=== PATIENT | female | born 1950 | race Caucasian/White ===

== ENCOUNTER 2022-07-20 13:57 | Outpatient (REF) | payer MEDICARE, MEDICAID, SELFPAY ==
--- NOTE | ~2022-07-20 | MM_ITS ---
EXAMINATION: BONE DENSITOMETRY CLINICAL INDICATION: Osteoporosis. COMPARISON: Previous BD dated 06/13/2018 and baseline BD dated 12/13/2008. TECHNIQUE: Using a [employer] DXA System (software version: 13.1) manufactured by [employer], dual-energy x-ray absorptiometry was performed of the lumbar spine and right hip. The images are of good technical quality. Summary results are attached. FINDINGS: AP SPINE L1-L2 (excluding L3 and L4): The data of L1-L4 has been changed to exclude the L3 and L4 vertebral bodies, because degenerative changes at these levels may cause overestimation of lumbar spine density. Current: BMD 0.784 g/cm2, Z-score -1.3, T-score -3.2, osteoporosis, 0.9% increase from previous, 15.6% increase from baseline (<5% change is not significant). Prior: BMD 0.777 g/cm2. Baseline: BMD 0.678 g/cm2. RIGHT FEMUR, NECK: Current: BMD 0.512 g/cm2, Z-score -1.8, T-score -3.8, osteoporosis. Prior: BMD 0.638 g/cm2. Baseline: BMD 0.625 g/cm2. RIGHT FEMUR, TOTAL: Current: BMD 0.480 g/cm2, Z-score -2.4, T-score -4.2, osteoporosis, 23.8% decrease from previous, 21.4% decrease from baseline (<5% change is not significant). Prior: BMD 0.630 g/cm2. Baseline: BMD 0.611 g/cm2. IDENTIFIED RISK FACTORS: Early menopause, height loss, bilateral oophorectomy, history of fracture (adult), hyperthyroid, hysterectomy, osteoporosis, renal, secondary osteoporosis. HISTORY OF FRACTURE: Femur, thoracic spine, other. MEDICATIONS: Vitamin D, Prolia. MM/XR DEXA axial skeleton IMPRESSION: 1. DIAGNOSIS: Severe osteoporosis based on the lowest T-score value of -4.2 in the total femur and history of fracture of spine and femur applying World Health Organization criteria. 2. 10-YEAR FRACTURE RISK PREDICTION, FRAX: According to the guidelines, FRAX calculation should only be performed on patients in the osteopenia bone density category. Therefore, FRAX was not performed on this patient. 3. Treatment Recommendations: NOF guidelines recommend consideration for treatment in postmenopausal women and men age 50 and older presenting with the following: -A hip or vertebral (clinical or morphometric) fracture. -T-score less than or equal to -2.5 at the femoral neck or spine after appropriate evaluation to exclude secondary causes. -Low bone mass at the hip or spine and a 10-year fracture probability by FRAX of greater than or equal to 3% for hip fracture or greater than or equal to 20% for major osteoporotic fracture based on the [place] adapted WHO algorithm. 4. Other Recommendations: All treatment decisions require clinical judgment and consideration of individual patient factors, including patient preferences, comorbidities, previous drug use, risk factors not captured in the FRAX model (e.g. frailty, falls, vitamin D deficiency, increased bone turnover, interval significant decline in bone density) and possible under or overestimation of fracture risk by FRAX. Additional medical evaluation for secondary cause of low bone mineral density may be appropriate. FUTURE SCAN RECOMMENDATION: People with diagnosed cases of osteoporosis or at high risk for fracture should have regular bone mineral density tests. For patients eligible for Medicare, routine testing is allowed once every 2 years. The testing frequency can be increased to one year for patients who have rapidly progressing disease, those who are receiving or discontinuing medical therapy to restore bone mass, or have additional risk factors.
== END 2022-07-20 13:58 | disposition home or self-care (01) ==
LOC: HO.MAMMO 13:57
PROVIDERS: PCP Emergency Medicine; Visit Provider Emergency Medicine
DX: Z13.820 Encounter for screening for osteoporosis (principal); Z78.0 Asymptomatic menopausal state; M81.0 Age-related osteoporosis without current pathological fracture
CPT/HCPCS: 77080

== ENCOUNTER 2024-08-29 15:29 | Inpatient (IN) | payer OTHER, SELFPAY ==
[2024-08-29] VITALS (8 sets, daily range): BP systolic 136–161; BP diastolic 62–83; PULSE 90–119; RESP 16–30; TEMP 36.1–36.9; O2SAT 91–98; BMI 17.8; BMI 18.6
--- NOTE | ~2024-08-29 | XR_ITS ---
EXAMINATION: XR CHEST CLINICAL INFORMATION: SOB, vomiting COMPARISON: None available. TECHNIQUE: 2 views of the chest were obtained. FINDINGS: The lungs are hyperinflated but clear acute pneumonic process. There is mild bilateral apical pleural thickening without pleural effusion. Heart size and pulmonary vasculature is normal. There is moderate smooth S-shaped scoliosis of dorsal spine. There is cement augmentation of upper to mid dorsal approximately 6 vertebra. No aggressive lytic or sclerotic process seen. XR/XR chest 2V IMPRESSION: Unremarkable examination. Mild left apical pleural thickening without effusion. Electronically signed by: Peter Muñoz MD 08/29/2024 04:26 PM EDT
--- NOTE | ~2024-08-29 | XR_ITS ---
CLINICAL HISTORY: shortness, hypoxia 1 view chest x-ray Comparison: CR/SR - XR CHEST 2V - 08/29/24 16:09 EDT Findings: The lungs are hyperaerated. There is bilateral interstitial prominence. There is left lower lobe pleural-parenchymal opacity. Mild biapical scarring. No pneumothorax. Borderline heart size with a densely calcified aorta. Thoracolumbar S shaped scoliosis. Upper thoracic kyphoplasty. IMPRESSION: 1. Small left pleural effusion with adjacent compressive atelectasis and/or consolidation. 2. Bilateral interstitial prominence secondary to pneumonitis or edema. This document has been electronically signed by: Ritika Gonzalez DO on 09/01/2024 19:22:11
--- NOTE | ~2024-08-29 | CT_ITS ---
CLINICAL HISTORY: hypoxia CT chest without contrast Comparison: None Findings: Moderate apical predominant centrilobular and paraseptal emphysematous changes. Bilateral posterior-dependent and bibasilar atelectasis. Small bilateral pleural effusions. Heart size normal. No pericardial effusion. No thoracic aortic aneurysm. Heavy aortic atherosclerotic changes. No acute fracture. Remote thoracic compression fracture deformities noted. IMPRESSION: 1. Bilateral lower lobe posterior dependent and basilar atelectasis. Findings may represent aspiration given the distribution and bilaterality. 2. Small bilateral pleural effusions. This document has been electronically signed by: Ranjit Orozco MD on 09/04/2024 19:52:49
--- NOTE | ~2024-08-29 | CT_ITS ---
CLINICAL HISTORY: Diarrhea, weight loss CT abdomen and pelvis without contrast Comparison: None Findings: Lung bases clear. No acute bony abnormality. Degenerative change spine and bilateral hips. Hepatomegaly without significant focal abnormality. Pancreas, Spleen and adrenal glands unremarkable. Gallbladder within normal limits. No bilateral renal stone or hydronephrosis. No focal renal abnormality or ureteral dilation. Renovascular calcifications noted. 4.8 cm infrarenal abdominal aortic aneurysm. This is not well assessed on this noncontrasted study. No free fluid or adenopathy in the pelvis. No diverticulitis. Appendix not identified. Uterus normal size. No adnexal abnormality. Impression: No acute processes This document has been electronically signed by: Rigoberto Melendez MD on 08/29/2024 19:12:39
--- NOTE | 2024-08-29 15:42 | ED.GENADULT ---
HPI - General Adult General Chief complaint: Nausea/Vomiting/Diarrhea Stated complaint: Dehydration, sent by PCP Time Seen by Provider: 08/29/24 16:40 Source: patient Mode of arrival: ambulatory Limitations: no limitations History of Present Illness ED Provider: HPI narrative: 74-year-old woman, heavy smoker drinks a pt of vodka a day, presented with diarrhea, no chest pain no shortness of breath no fevers or chills. States last drink was yesterday, does not feel like she is withdrawing, there is no dyspnea, no chest pain, no abdominal pain no back pain no pain in her upper extremities. She went to see her PCP and was sent to the ER due to diarrhea for the past 4 days 6-7 times at night. Related Data Allergies Allergy/AdvReac Type Severity Reaction Status Date / Time No Known Allergies Allergy Verified 08/29/24 15:44 [No Known Allergies*] Review of Systems Constitutional: Constitutional: Reports as per [facility] Social History Social History Advance Directives: No Advance Directives Information Provided: No Physical Exam ED Vital Signs: Vital Signs - 24 hr 08/29/24 15:40 08/29/24 16:46 08/29/24 16:49 Temperature 97.0 F Pulse Rate 90 109 H Respiratory Rate 22 H 16 Blood Pressure 139/67 146/78 H Pulse Oximetry 91 L 92 Oxygen Delivery Method Room Air Nasal Cannula Oxygen Flow Rate 2 BMI result Body Mass Index 17.8 Const Other: Gen: ?Appears of stated age HEENT: No scleral icterus, dry oral mucosa Neck: Supple, no LAD CV: RRR, radial pulses +2 bilateral upper extremities Resp: ?No wheezing rales rhonchi no stridor moving air well Abd: ?Bowel sounds are present, no tenderness no rebound no rigidity MSK: FROM, strength 5/5 all extremities, minimal ankle edema Skin: Warm, dry, intact, Neuro: ?Alert and oriented x3, moving upper and lower extremities symmetrically, no obvious facial asymmetry noted Course Course Course Narrative: 08/29/24 1542 LEYDI Mckoy This is a Rapid Medical Examination (RME) performed by Marychuy Stockton PA-C in triage. Full HPI, ROS, assessment and treatment plan per primary provider in the Main ED. Hx: 74 yo F here for eval of 6-7 episodes of diarrhea x4 days along w/ b/l LE swelling and inc SOB which began today. here from dr. steen office. reports drinking 1-2 pints/ night. Plan: labs, ekg, cxr Medical Decision Making Medical Decision Making [facility] Narrative: 16:53 patient has not ECG with ST-depression in V1 to V3, right bundle-branch block, no priors to compare, her 1st troponin at 644. I discussed case with Dr. Kaur from Cardiology, we will start her on heparin, provide aspirin, she has absolutely no chest pain or any other chest pain equivalents. I will give her Valium to prevent any withdrawals she is not having any withdrawal symptoms. Otherwise physical exam is reassuring. Patient has been updated. Differential Diagnosis Differential Diagnoses: The differential diagnosis associated with the presentation includes ACS, aortic dissection, PE, dehydration, alcohol withdrawal, electrolyte derangements Admission/Observation Consideration of admission/observation: Escalation of care including admission/observation considered Consult Healthcare Provider Management of the patient was discussed with: Program Proposals Coordinator (Cardiology) Lab Data [facility] Lab Attestation statement: I reviewed the patient's lab results. 08/29/24 15:58 08/29/24 15:58 Labs: Lab Results 08/29/24 Range/Units 15:58 WBC 7.5 (4.8-10.8) X10*3/uL RBC 3.75 L (4.20-5.50) X10*6/uL Hgb 12.8 (12.0-16.0) g/dl Hct 38.0 (37.0-47.0) % MCV 101.3 H (80.0-98.0) fL MCH 34.1 H (27.0-33.0) pg MCHC 33.7 (31.0-35.0) g/dl RDW 14.2 (11.0-16.0) % Plt Count 226 (160-400) X10*3/uL MPV 8.7 L (9.4-12.3) fL Immature Gran % (Auto) 0.5 H (0.0-0.4) % Neut % (Auto) 62.7 (45-73) % Lymph % (Auto) 13.0 L (20-40) % [place] % (Auto) 21.4 H (2-11) % Eos % (Auto) 1.2 (0-4) % Baso % (Auto) 1.2 (0-2) % Lymph # (Auto) 1.0 L (1.2-4.9) X10*3/uL [place] # (Auto) 1.6 H (0.1-1.2) X10*3/uL Eos # (Auto) 0.1 (0.0-0.4) X10*3/uL Baso # (Auto) 0.1 (0.0-0.2) X10*3/uL Abs Immat Gran (auto) 0.04 H (0.00-0.03) X10*3/uL Absolute Neuts (auto) 4.7 (2.0-8.3) x10*3/uL Absolute Nucleated RBC 0.000 (0.0-0.012) X10*3/uL Nucleated RBC % (auto) 0.0 (0.0-0.2) /100WBC Smear Tech's Comments VERIFIED Sodium 141 (135-145) mmol/L Potassium 3.2 L (3.3-5.1) mmol/L Chloride 108 (96-108) mmol/L Carbon Dioxide 25 (22-29) mmol/L Anion Gap 11 L (12-20) BUN 21 H (9-16) mg/dL Creatinine 0.66 (0.5-1.4) mg/dL Estim Creat Clear Calc 48.9 Estimated GFR > 60 Random Glucose 105 (60-115) mg/dL Calcium 9.4 (8.4-10.2) mg/dL Magnesium 1.5 L (1.6-2.6) mg/dL Total Bilirubin 0.8 (0.0-1.0) mg/dL AST 36 H (5-31) U/L ALT 23 (0-31) U/L Alkaline Phosphatase 64 (39-117) U/L Troponin I High Sens 644.1 H* (<3.5-17.0) ng/L B-Natriuretic Peptide 433 H (<100) pg/mL Total Protein 6.2 L (6.5-8.0) g/dL Albumin 3.6 (3.5-5.0) g/dL Lipase 12 (8-78) U/L Ethyl Alcohol < 10 mg/dL Influenza Type A (PCR) NEGATIVE (Negative) Influenza Type B (PCR) NEGATIVE (Negative) RSV RNA Qual (PCR) NEGATIVE (Negative) SARS-CoV-2 RNA (RT-PCR) NEGATIVE (Negative) Independent Interpretation I performed an independent interpretation of an: EKG (103 beats per minute, right bundle-branch block, ST depression V1 to V3, no priors to compare) Radiology Impression Radiologist Impression: Unremarkable examination. Mild left apical pleural thickening without effusion. Critical Care Time Critical Care Time Total Critical Care Time: 45 Attestation: Time is exclusive of separately billable procedures. Time includes: direct patient care, patient reassessment, coordination of patient care, interpretation of data (laboratory data, pulse oximetry, arterial blood gases and chest xrays), review of patient's medical records, medical consultation and documentation of patient care. Procedures excluded from critical care time: central intravenous line placement and electrocardiography. Discharge Plan Discharge Clinical Impression: Non-ST elevation AR (NSTEMI), Alcohol use disorder Patient Disposition: Admitted As Inpatient Print Language: Bulgarian
--- NOTE | 2024-08-29 15:44 | ECG_ITS ---
Test Reason : TACHYCARDIC Blood Pressure : */* mmHG Vent. Rate : 103 BPM Atrial Rate : 103 BPM P-R Int : 118 ms QRS Dur : 132 ms QT Int : 378 ms P-R-T Axes : 82 96 -4 degrees QTcB Int : 495 ms Sinus tachycardia with Premature atrial complexes Right bundle branch block Nonspecific ST and T wave abnormality Abnormal ECG When compared with ECG of 05-Mar-2015 11:33, Premature atrial complexes are now Present ST now depressed in Inferior leads ST now depressed in Anterior leads Referred By: Dot Stockton Electronically Signed By: ELENITA HALL
[2024-08-29 16:08] LABS: Basophils Absolute Auto 0.1 X10*3/uL (0.0-0.2); Basophils Percent Auto 1.2 % (0-2); Eosinophils Absolute Auto 0.1 X10*3/uL (0.0-0.4); Eosinophils Percent Auto 1.2 % (0-4); Hemoglobin 12.8 g/dl (12.0-16.0); Imm Gran Abs Auto 0.04 X10*3/uL (0.00-0.03); Imm Gran Pct Auto 0.5 % (0.0-0.4); MANUAL DIFF FLAG SCAN; Mean Corpuscular HGB Conc 33.7 g/dl (31.0-35.0); Mean Corpuscular Hemoglobin 34.1 pg (27.0-33.0); Mean Corpuscular Volume 101.3 fL (80.0-98.0); Mean Platelet Volume 8.7 fL (9.4-12.3); Monocytes Absolute Auto 1.6 X10*3/uL (0.1-1.2); Monocytes Percent Auto 21.4 % (2-11); Neutrophils Absolute Auto 4.7 x10*3/uL (2.0-8.3); Neutrophils Percent Auto 62.7 % (45-73); Platelet Count 226 X10*3/uL (160-400); Red Blood Count 3.75 X10*6/uL (4.20-5.50); Red Cell Distribution Width 14.2 % (11.0-16.0); SCAN SMEAR FLAG 1; White Blood Count 7.5 X10*3/uL (4.8-10.8)
[2024-08-29 16:24] LABS: Alanine Aminotransferase 23 U/L (0-31); Albumin Level 3.6 g/dL (3.5-5.0); Alkaline Phosphatase 64 U/L (39-117); Anion Gap 11 (12-20); Aspartate Amino Transferase 36 U/L (5-31); Bilirubin Total 0.8 mg/dL (0.0-1.0); Blood Urea Nitrogen 21 mg/dL (9-16); Calcium 9.4 mg/dL (8.4-10.2); Carbon Dioxide 25 mmol/L (22-29); Chloride 108 mmol/L (96-108); Creatinine Clr Calc Pharmacy 48.9; Estimated Glomerular Filt Rate > 60; Glucose Random 105 mg/dL (60-115); Lipase 12 U/L (8-78); Magnesium 1.5 mg/dL (1.6-2.6); Potassium 3.2 mmol/L (3.3-5.1); Sodium 141 mmol/L (135-145); Total Protein 6.2 g/dL (6.5-8.0)
[2024-08-29 16:26] LABS: Ethanol < 10 mg/dL
[2024-08-29 16:30] LABS: B Type Natriuretic Peptide 433 pg/mL (<100)
[2024-08-29 16:40] LABS: SLIDE REVIEW VERIFIED
[2024-08-29 16:41] LABS: Troponin-I High Sensitivity 644.1 ng/L (<3.5-17.0)
[2024-08-29 16:44] LABS: Influenza A PCR NEGATIVE (Negative); Influenza B PCR NEGATIVE (Negative); Resp Syncy Virus RNA Qual PCR NEGATIVE (Negative); SARS COV2 PCR INHOUSE NEGATIVE (Negative)
[2024-08-29] MEDS: Aspirin 81 MG TAB.CHEW 324 MG PO (16:58)
[2024-08-29] MEDS: diazePAM 10 MG/2 ML CARTRIDGE 2.5 MG IVPUSH (17:04)
[2024-08-29] MEDS: 0.9 % Sodium Chloride 1,000 ML 999 ML IV (17:13)
[2024-08-29] MEDS: Metoprolol Tartrate 5 MG/5 ML VIAL 2.5 MG IVPUSH (17:16)
--- NOTE | 2024-08-29 17:27 | P.HPHOSP_ITS ---
History of Present Illness Date of Service: 08/29/24 Chief Complaint: diarrhea, weight loss 74 year female with smoker, heavy alcohol use drinks about 1 pint of liquor a day, HTN, hypothyroidism she has lost 10 Ib since december and and has been having diarrhea for 5 to 7 time a day for the last 4 days, no associated abdominal pain and no hematochezia. She recently travelled to [place], no other household members with similar symptoms, lives with [place] people, no recent Abx use. Unpone eval in the ED noted to have inferior TWI on ECG, she denies chest pain or shortness of breath. Troponin I level is 644, hemodynamically stable. Cardilogy has asvised medical treatement with heparin, ASA, and is also getting metoprolol. She is not experiencing alcohol withdrawal as of yet, althogh she states has has had withdrawal in the past and last drank yesterday. Other notable things include K 3.2 Mag 1.5, BNP 43 Review of Systems 2 Review of Systems: Gen: no fever Resp: no sob, no cough CV: no chest, no LOUISE, no leg edema GI: No n/v, no abd pain, + diarrhea Neuro: No confusion PMFSH Social History Alcohol intake: current Alcohol intake frequency: 3 or more drinks per day Alcohol type: hard liquor Smoked in Last 30 Days: No Use of substances other than those prescribed or required for medical reasons: No Advance Directives: No Advance Directives Information Provided: No Meds Allergies Allergy/AdvReac Type Severity Reaction Status Date / Time No Known Allergies Allergy Verified 08/29/24 15:44 [No Known Allergies*] Active Medications: Current Medications Heparin Sodium (Porcine) (Heparin Sodium,Porcine 5,000 Unit/Ml Vial) 1,700 unit 40 unit/kg (1700 unit) IVPUSH PROTOCOL BOLUS PRN; Protocol PRN Reason: 40 unit/kg - Heparin Protocol Heparin Sodium (Porcine) (Heparin Sodium,Porcine 5,000 Unit/Ml Vial) 3,400 unit 80 unit/kg (3400 unit) IVPUSH PROTOCOL BOLUS PRN; Protocol PRN Reason: 80 unit/kg - Heparin Protocol Sodium Chloride (Ns) 1,000 mls @ 999 mls/hr IV .Q1H1M JG Stop: 08/29/24 18:00 Last Admin: 08/29/24 17:13 Dose: 999 mls/hr Heparin Sodium/Sodium Chloride (Heparin Sodium,Porcine/1/2ns) 25,000 unit in 250 mls @ 0 mls/hr IVCONT .Q0M JG; Protocol Home Medications ?Medication ?Instructions ?Recorded ?Confirmed ?Last Taken ?Type albuterol sulfate 90 mcg/actuation 2 puff inhalation Q4-6H PRN 08/29/24 08/29/24 Unknown History aerosol inhaler Shortness Of Breath Or Wheezing amlodipine 10 mg tablet 10 mg PO DAILY 08/29/24 Unknown History ergocalciferol (vitamin D2) 1,250 1,250 mcg PO Q2W 08/29/24 Unknown History mcg (50,000 unit) capsule levothyroxine 88 mcg tablet 88 mcg PO DAILY@0600 08/29/24 Unknown History Physical Exam 2 Vital Signs and Narrative: Vital Signs: Last Vital Signs Temp 97.0 F 08/29/24 15:40 Pulse 119 H 08/29/24 17:06 Resp 24 H 08/29/24 17:06 BP 161/83 H 08/29/24 17:06 Pulse Ox 98 08/29/24 17:06 O2 Del Method Nasal Cannula 08/29/24 17:06 O2 Flow Rate 2 08/29/24 17:06 BMI result Body Mass Index 17.8 Const: Other: General: AO X 3, no acute distress Resp: CTA bilateral CVS: S1,S2,RRR GI: +BS, NT, no distention Skin: No rash Neuro: motor grossly intact, no tremors Psych: appropriate affect Results Labs 08/29/24 17:30 08/29/24 15:58 Labs: Laboratory Results - last 24 hr 08/29/24 15:58 MCV 101.3 H MCH 34.1 H MCHC 33.7 RDW 14.2 Plt Count 226 MPV 8.7 L Immature Gran % (Auto) 0.5 H Neut % (Auto) 62.7 Lymph % (Auto) 13.0 L [place] % (Auto) 21.4 H Eos % (Auto) 1.2 Baso % (Auto) 1.2 Lymph # (Auto) 1.0 L [place] # (Auto) 1.6 H Eos # (Auto) 0.1 Baso # (Auto) 0.1 Abs Immat Gran (auto) 0.04 H Absolute Neuts (auto) 4.7 Absolute Nucleated RBC 0.000 Nucleated RBC % (auto) 0.0 Smear Tech's Comments VERIFIED Anion Gap 11 L Estim Creat Clear Calc 48.9 Estimated GFR > 60 Random Glucose 105 Calcium 9.4 Magnesium 1.5 L Total Bilirubin 0.8 AST 36 H ALT 23 Alkaline Phosphatase 64 Troponin I High Sens 644.1 H* B-Natriuretic Peptide 433 H Total Protein 6.2 L Albumin 3.6 Lipase 12 Ethyl Alcohol < 10 Influenza Type A (PCR) NEGATIVE Influenza Type B (PCR) NEGATIVE RSV RNA Qual (PCR) NEGATIVE SARS-CoV-2 RNA (RT-PCR) NEGATIVE Imaging Radiologist's Impressions: Impressions Chest X-Ray 08/29/24 16:00 IMPRESSION: Unremarkable examination. Mild left apical pleural thickening without effusion. Electronically signed by: Peter Muñoz MD 08/29/2024 04:26 PM EDT RP Assessment and Plan (1) Alcohol use disorder: Status: Acute (2) Non-ST elevation HI (NSTEMI): Status: Acute Plan 74/F with HTN, hypothyroidism, chronic alcohol dependency, here with diarrhea weight loss and found to have NSTEMI NSTEMI, inf wall changes on ECG Trend troponin medical management with ASA, stattin, BB, IV heparin for 48 to 72 hours echocardiogram to assess wall motion cardiology consultation to guide further management and risk stratification No sings of heart failure despite elevated BNP alcohol use disorder, high risk for withdrawal Diarrhea, unintentional weight loss check gi panel, cdif lactose controlled diet unsure of last colonoscopy non contrast CT of Abd/pelv will need gi eval, and likely colonoscopy in the future Hypokalemia, hypomagnesemia d/t chronic alcohol use replace HTN continue Norvasc Metoprolol-new Tobacco use disorder NRT Hypothyroidism continue leveothyroxine and check TFTs DVT prophylaxis: heparin Full code at least 2 midnights admit for NSTEMI on IV heparin Quality Stroke Does the patient have a stroke diagnosis?: No VTE Prior VTE?: No VTE Risk Level:: Medical - moderate - high VTE Device Contraindication: Treatment Not Indicated VTE Drug Contraindication: N/A - Med Ordered
[2024-08-29 17:39] LABS: Hematocrit 36.9 % (37.0-47.0); Hemoglobin 12.2 g/dl (12.0-16.0); Mean Corpuscular HGB Conc 33.1 g/dl (31.0-35.0); Mean Corpuscular Hemoglobin 34.2 pg (27.0-33.0); Mean Corpuscular Volume 103.4 fL (80.0-98.0); Platelet Count 199 X10*3/uL (160-400); Red Blood Count 3.57 X10*6/uL (4.20-5.50); Red Cell Distribution Width 14.2 % (11.0-16.0); White Blood Count 6.7 X10*3/uL (4.8-10.8)
[2024-08-29 17:49] LABS: Prothrombin Time 10.9 SEC (10.9-12.4)
[2024-08-29 17:51] LABS: PTT Heparin Drip 31.9 SEC (53-77.9)
[2024-08-29] MEDS: Heparin Sodium,Porcine 5,000 UNIT/ML VIAL 2600 UNIT IVPUSH (18:02)
[2024-08-29] MEDS: Heparin Sodium,Porcine/1/2NS 25,000 UNIT/250 ML IV.SOLN 5.12 UNIT IVCONT (18:03)
[2024-08-29 18:05] LABS: Estimated Average Glucose 100 mg/dL; Hemoglobin A1c % 5.1 % (<6.0)
[2024-08-29 18:06] LABS: Troponin-I High Sensitivity 575.8 ng/L (<3.5-17.0)
[2024-08-29] MEDS: PHENobarbitaL sodium 130 MG/ML IM ONCE 136 MG IM (18:09)
[2024-08-29] MEDS: Potassium Chloride ER 20 MEQ TAB.ER.PRT 40 MEQ PO (18:20)
[2024-08-29 18:27] LABS: Free T4 (Free Thyroxine) 1.37 ng/dL (0.71-1.85); Thyroid Stimulating Hormone 0.03 uIU/mL (0.32-4.0)
[2024-08-29] MEDS: Magnesium Sulfate/H2O 2 GM/50 ML PIGGYBACK IV (18:27)
--- NOTE | 2024-08-29 18:53 | PHA.MEDREC ---
Addendum entered by Charlee Manriquez RPh 08/29/24 18:56: reviewed by rod Original Note: Pharmacy Consult ? Medication Reconciliation Pharmacy has completed the medication reconciliation. Spoke with pt and she confirmed her medications. She confirmed she takes Vitamin D2 once every 2 week on and stated she is due for it tomorrow (08/29).
--- NOTE | 2024-08-29 19:12 | MHC.EDTECH ---
Patient belongings list done ,Patient wanted to keep her Pants on ,Call [facility] within Pt reach .
[2024-08-29] MEDS: Metoprolol Tartrate 25 MG TABLET PO (21:55)
[2024-08-29] MEDS: PHENobarbitaL sodium 130 MG/ML VIAL IM Q3Hx2 102 MG IM (21:55)
[2024-08-29] MEDS: Atorvastatin Calcium 40 MG TABLET PO (21:55)
[2024-08-29 22:01] LABS: Appearance Urine Clear; Color Urine Yellow; Glucose Urine UA Negative (Negative); Leukocyte Esterase Urine Negative (Negative); Nitrite Urine Negative (Negative); Specific Gravity - Urine 1.025 (1.005-1.025); UMIC TRIGGER UACC YES; Urine Blood Negative (Negative); Urine Ketones Negative (Negative); Urine Protein 100 (2+) mg/dL (Neg-Trace)
[2024-08-29] MEDS: 0.9 % Sodium Chloride Flush 3 ML SYRINGE IVFLUSH (22:01)
[2024-08-29 22:22] LABS: Bacteria Urine 1+ (None Seen); Hyaline Casts Urine 0-2 /LPF (0-2); RBC Urine 0-2 /HPF (0-2); WBC Urine 0-5 /HPF (0-5)
[2024-08-30] VITALS (7 sets, daily range): BP systolic 101–135; BP diastolic 53–63; PULSE 67–89; RESP 16–20; TEMP 36.4–37.2; O2SAT 94–98; BMI 18.6
[2024-08-30 00:40] LABS: PTT Heparin Drip 50.3 SEC (53-77.9)
[2024-08-30] MEDS: Heparin Sodium,Porcine 5,000 UNIT/ML VIAL 1700 UNIT IVPUSH ×2 (01:02→14:17)
[2024-08-30] MEDS: PHENobarbitaL sodium 130 MG/ML VIAL IM Q3Hx2 102 MG IM (01:02)
--- NOTE | 2024-08-30 07:00 | CA_ITS ---
Transthoracic Echocardiogram Patient (Last, First, Middle): Loly Spann A Gender: Female Date of : 1950 Age: 74 Procedure Date: 08/30/2024 Procedure Type: Transthoracic Echocardiogram Location: [facility] Height: 154.94 cm Weight: 44.45 kg BSA: 1.40 m2 Heart Rate: bpm BP: 133 / 59 mmHg Active Directory Specialist: REY Bella MD: Josh Willard MD Symptoms: NSTEMI Study Quality: Fair ECG Rhythm: Sinus Conclusions: - The left ventricular systolic function is hyperdynamic. The visually estimated ejection fraction is >70%. - Moderately increased right ventricular cavity size. - There is mild to moderate tricuspid valve regurgitation. - Mild pulmonary hypertension is present. Findings Left Ventricle Normal left ventricular cavity size. There is normal left ventricular wall thickness. The left ventricular systolic function is hyperdynamic. The visually estimated ejection fraction is >70%. There is no evidence of regional wall motion abnormalities. Evidence suggests grade II (moderate) diastolic dysfunction. Right Ventricle Moderately increased right ventricular cavity size. There is mildly decreased right ventricular systolic function. Atria Mild biatrial enlargement. Aortic Valve There is a normal trileaflet aortic valve. There is mild calcification of the aortic valve. There is no aortic valve stenosis. There is no aortic valve regurgitation. Mitral Valve There is mild mitral annular calcification. There is trace mitral valve regurgitation. There is no mitral valve stenosis. Pulmonic Valve The pulmonic valve is likely normal. Tricuspid Valve There is mild to moderate tricuspid valve regurgitation. Mild pulmonary hypertension is present. Great Vessels The asc aorta is normal in size. Venous The inferior vena cava is mildly dilated and collapses less than 50% with inspiration. Pericardium/Pleural There is no evidence of pericardial effusion. Prior Study Comparison No prior study available for comparison. Measurements 2D Linear Measurements IVSd: 0.94 0.6-0.9/0.6-1.0 cm LVIDd: 3.62 3.9-5.3/4.2-5.9 cm LVIDd Index: 2.59 2.4-3.2/2.2-3.1 cm/m2 LVIDs: 1.92 2.0-3.6 cm LVPWd: 0.93 0.7-1.1 cm Ao Root: 3.20 2.1-3.5 cm LA Diam: 3.60 2.7-3.8/3.0-4.0 cm LAIDs Index: 2.57 1.5-2.3 cm/m2 LV Mass: 122.66 67-162/88-224 g LV Mass Index: 87.61 43-95/49-115 g/m2 LVOT Diam: 2.00 3.0+(-)1.3 cm 2D Systolic Function EF 4C: 79.40 >55% EF 2C: 65.50 >55% EF BiP: 73.70 >55% Mitral Valve MV Pk E: 1.11 MV PK A: 0.80 MV Decel Time: 202.00 E/A: 1.40 E'Lateral: 5.87 E'Medial: 4.31 E/E' Med: 25.80 E/E' Lat: 18.90 PHT: 59.00 MVA PHT: 3.73 Decel [place]: 5.52 Aortic Valve AoV Pk Umang: 1.14 AoV Mn Umang: 0.81 AoV VTI: 0.26 AoV Pk Grad: 5.00 Aov Mn Grad: 3.00 FRANCISCO JAVIER Cont.VTI: 3.14 LVOT LVOT Pk Umang: 1.14 LVOT Mn Umang: 0.82 LVOT VTI: 0.26 LVOT Pk Grad: 5.00 LVOT Mn Grad: 3.00 LVOT Diam: 2.00 LVOT Area: 3.14 Diastolic Function MV Pk E: 1.11 MV Pk A: 0.80 E/A: 1.40 E'Medial: 4.31 E/E' Med: 25.80 E' Laterial: 5.87 E/E' Lat: 18.90 Right Ventricle TAPSE (mm): 20.00 TVS' Umang: 8.00 Tricuspid Valve TR Pk Umang: 2.95 TR Pk Grad: 35.00 RA Press: 15.00 RVSP: 50.00 Great Vessels Aorta Ao Root-2D: 3.20 2.0-3.7 cm Ao Asc: 3.60 2.1-3.4 cm Pulmonary Valve PV Pk Umang: 0.72 Peak PV Grad: 2.00 Updated in Other Vendor System with Status of Final Paddy Kaur MD electronically signed on 08/31/2024 10:09:19 AM with status of Final
[2024-08-30 07:15] LABS: Hematocrit 34.3 % (37.0-47.0); Hemoglobin 11.2 g/dl (12.0-16.0); Mean Corpuscular HGB Conc 32.7 g/dl (31.0-35.0); Mean Corpuscular Hemoglobin 34.1 pg (27.0-33.0); Mean Corpuscular Volume 104.6 fL (80.0-98.0); Platelet Count 171 X10*3/uL (160-400); Red Blood Count 3.28 X10*6/uL (4.20-5.50); Red Cell Distribution Width 14.5 % (11.0-16.0); White Blood Count 6.5 X10*3/uL (4.8-10.8)
--- NOTE | 2024-08-30 07:15 | ECG_ITS ---
Test Reason : nestemi Blood Pressure : */* mmHG Vent. Rate : 85 BPM Atrial Rate : 85 BPM P-R Int : 116 ms QRS Dur : 124 ms QT Int : 394 ms P-R-T Axes : 73 61 5 degrees QTcB Int : 468 ms Sinus rhythm with Premature atrial complexes Right bundle branch block Abnormal ECG When compared with ECG of 29-Aug-2024 15:47, No significant change was found Referred By: Josh [facility] Electronically Signed By: ELENITA HALL
[2024-08-30 07:24] LABS: INTERNATIONAL NORM RATIO 0.9 (0.9-1.1); Prothrombin Time 10.5 SEC (10.9-12.4)
[2024-08-30 07:38] LABS: Alanine Aminotransferase 18 U/L (0-31); Albumin Level 2.9 g/dL (3.5-5.0); Alkaline Phosphatase 57 U/L (39-117); Anion Gap 9 (12-20); Aspartate Amino Transferase 30 U/L (5-31); Bilirubin Total 0.7 mg/dL (0.0-1.0); Blood Urea Nitrogen 19 mg/dL (9-16); Calcium 8.7 mg/dL (8.4-10.2); Carbon Dioxide 26 mmol/L (22-29); Chloride 113 mmol/L (96-108); Cholesterol 114 mg/dL (<200); Creatinine Clr Calc Pharmacy 61.2; Estimated Glomerular Filt Rate > 60; Glucose Random 94 mg/dL (60-115); HDL Cholesterol 59 mg/dL (>40); LDL Cholesterol Calculated 39 mg/dL (<100); Magnesium 1.9 mg/dL (1.6-2.6); Potassium 3.7 mmol/L (3.3-5.1); Sodium 144 mmol/L (135-145); Total Protein 5.2 g/dL (6.5-8.0); Triglycerides 82 mg/dL (<150)
[2024-08-30] MEDS: PHENobarbitaL 30 MG TABLET PO ×2 (09:21→22:29)
[2024-08-30] MEDS: Aspirin 81 MG TAB.CHEW PO (09:21)
[2024-08-30] MEDS: Metoprolol Tartrate 25 MG TABLET PO ×2 (09:21→22:29)
[2024-08-30] MEDS: Nicotine 14 MG PATCH.TD24 TRANSDERMA (09:21)
[2024-08-30] MEDS: 0.9 % Sodium Chloride Flush 3 ML SYRINGE IVFLUSH ×2 (09:22→16:00)
--- NOTE | 2024-08-30 11:04 | HO.PM.IMPN ---
Subjective Subjective Date of Service: 08/30/24 Interval History: f/u on NSTEMI, no chest pain, hemodynamically stable, trop trending down, no diarrhea, no sings of alcohol withdrawal at this time Review of Systems Gen: no fever Resp: no sob, no cough CV: no chest, no LOUISE, no leg edema GI: No n/v, no abd pain, + diarrhea Neuro: No confusion Physical Exam Vital Signs: Vital Signs: Last Vital Signs Temp 97.6 F 08/30/24 07:30 Pulse 76 08/30/24 07:30 Resp 16 08/30/24 07:30 BP 133/59 L 08/30/24 07:30 Pulse Ox 96 08/30/24 07:30 O2 Del Method Oxymask 08/30/24 07:30 O2 Flow Rate 3 08/30/24 07:30 BMI result Body Mass Index 18.6 Const: Other: General: AO X 3, no acute distress Resp: CTA bilateral CVS: S1,S2,RRR GI: +BS, NT, no distention Skin: No rash Neuro: motor grossly intact, no tremors Psych: appropriate affect Objective Data Active Medications Acetaminophen (Acetaminophen 325 Mg Tablet) 650 mg PO Q6H PRN PRN Reason: Pain, Mild 1-3,fever,headache Aspirin (Aspirin 81 Mg Tab.Chew) 81 mg PO DAILY ON LICENSE OF [facility] Last Admin: 08/30/24 09:21 Dose: 81 mg Documented By: CLEO Atorvastatin Calcium (Atorvastatin Calcium 40 Mg Tablet) 40 mg PO BEDTIME ON LICENSE OF [facility] Last Admin: 08/29/24 21:55 Dose: 40 mg Documented By: MYRON Calcium Carbonate (Calcium Carbonate 750 Mg Tab.Chew) 750 mg PO Q4H PRN PRN Reason: Heartburn Heparin Sodium (Porcine) (Heparin Sodium,Porcine 5,000 Unit/Ml Vial) 1,700 unit 40 unit/kg (1700 unit) IVPUSH PROTOCOL BOLUS PRN; Protocol PRN Reason: 40 unit/kg - Heparin Protocol Last Admin: 08/30/24 01:02 Dose: 1,700 unit Documented By: MYRON Heparin Sodium (Porcine) (Heparin Sodium,Porcine 5,000 Unit/Ml Vial) 3,400 unit 80 unit/kg (3400 unit) IVPUSH PROTOCOL BOLUS PRN; Protocol PRN Reason: 80 unit/kg - Heparin Protocol Heparin Sodium/Sodium Chloride (Heparin Sodium,Porcine/1/2ns) 25,000 unit in 250 mls @ 0 mls/hr IVCONT .Q0M ON LICENSE OF [facility]; Protocol Last Titration: 08/30/24 07:36 Dose: 14 units/kg/hr, 5.98 mls/hr Documented By: CLEO Co-signed By: АНДРЕЙ Magnesium Hydroxide (Milk Of Magnesia 30 Ml Oral.Susp) 30 ml PO DAILY PRN PRN Reason: Constipation Melatonin (Melatonin 3 Mg Tablet) 6 mg PO BEDTIME PRN PRN Reason: Insomnia Metoprolol Tartrate (Metoprolol Tartrate 25 Mg Tablet) 25 mg PO BID ON LICENSE OF [facility]; Protocol Last Admin: 08/30/24 09:21 Dose: 25 mg Documented By: CLEO Nicotine (Nicotine 14 Mg Patch.Td24) 14 mg TRANSDERMA DAILY ON LICENSE OF [facility] Last Admin: 08/30/24 09:21 Dose: 14 mg Documented By: CLEO Nicotine Polacrilex (Nicotine Polacrilex 2 Mg Gum) 2 mg BUCCAL Q2H PRN PRN Reason: Nicotine Cravings Nitroglycerin (Nitroglycerin 0.4 Mg Tab.Subl) 0.4 mg SUBLINGUAL Q5MX3 PRN PRN Reason: Chest Pain Ondansetron HCl (Ondansetron Hcl 4 Mg/2 Ml Vial) 4 mg IVPUSH Q8H PRN PRN Reason: Nausea and Vomiting Pharmacy Consult (Consult Rx Etoh Phenob Im/Po) 1 each MISCELLANE ONCE PRN; Protocol PRN Reason: Consult order Phenobarbital (Phenobarbital 30 Mg Tablet) 30 mg PO BID ON LICENSE OF [facility] Stop: 08/31/24 21:01 Last Admin: 08/30/24 09:21 Dose: 30 mg Documented By: CLEO Phenobarbital (Phenobarbital 15 Mg Tablet) 15 mg PO BID ON LICENSE OF [facility] Stop: 09/02/24 21:01 Phenobarbital (Phenobarbital 15 Mg Tablet) 15 mg PO DAILY ON LICENSE OF [facility] Stop: 09/04/24 09:01 Sodium Chloride (0.9 % Sodium Chloride Flush 3 Ml Syringe) 3 ml IVFLUSH QSHIFT ON LICENSE OF [facility] Last Admin: 08/30/24 09:22 Dose: 3 ml Documented By: CLEO Labs 08/30/24 07:07 08/30/24 07:07 Labs: Laboratory Results - last 24 hr 08/29/24 08/29/24 08/29/24 15:58 17:30 Unknown MCV 101.3 H 103.4 H MCH 34.1 H 34.2 H MCHC 33.7 33.1 RDW 14.2 14.2 Plt Count 226 199 MPV 8.7 L 9.0 L Immature Gran % (Auto) 0.5 H Neut % (Auto) 62.7 Lymph % (Auto) 13.0 L [place] % (Auto) 21.4 H Eos % (Auto) 1.2 Baso % (Auto) 1.2 Lymph # (Auto) 1.0 L [place] # (Auto) 1.6 H Eos # (Auto) 0.1 Baso # (Auto) 0.1 Abs Immat Gran (auto) 0.04 H Absolute Neuts (auto) 4.7 Absolute Nucleated RBC 0.000 0.000 Nucleated RBC % (auto) 0.0 0.0 Smear Tech's Comments VERIFIED PT 10.9 INR 1.0 aPTT Heparin Protocol 31.9 L Anion Gap 11 L Estim Creat Clear Calc 48.9 Estimated GFR > 60 Random Glucose 105 Estimat Average Glucose 100 Hemoglobin A1c % 5.1 Calcium 9.4 Magnesium 1.5 L Total Bilirubin 0.8 AST 36 H ALT 23 Alkaline Phosphatase 64 Troponin I High Sens 644.1 H* 575.8 H* B-Natriuretic Peptide 433 H Total Protein 6.2 L Albumin 3.6 Triglycerides Cholesterol LDL Cholesterol, Calc HDL Cholesterol Lipase 12 TSH 0.03 L Free T4 1.37 Urine Color Yellow Urine Appearance Clear Urine pH 6.0 Ur Specific [place] 1.025 Urine Protein 100 (2+) H Urine Glucose (UA) Negative Urine Ketones Negative Urine Blood Negative Urine Nitrite Negative Ur Leukocyte Esterase Negative Urine RBC 0-2 Urine WBC 0-5 Ur Squamous Epith Cells 6-10 Urine Bacteria 1+ Hyaline Casts 0-2 Ethyl Alcohol < 10 Influenza Type A (PCR) NEGATIVE Influenza Type B (PCR) NEGATIVE RSV RNA Qual (PCR) NEGATIVE SARS-CoV-2 RNA (RT-PCR) NEGATIVE 08/30/24 08/30/24 00:26 07:07 MCV 104.6 H MCH 34.1 H MCHC 32.7 RDW 14.5 Plt Count 171 MPV 9.0 L Immature Gran % (Auto) Neut % (Auto) Lymph % (Auto) [place] % (Auto) Eos % (Auto) Baso % (Auto) Lymph # (Auto) [place] # (Auto) Eos # (Auto) Baso # (Auto) Abs Immat Gran (auto) Absolute Neuts (auto) Absolute Nucleated RBC 0.000 Nucleated RBC % (auto) 0.0 Smear Tech's Comments PT 10.5 L INR 0.9 aPTT Heparin Protocol 50.3 L D 56.0 Anion Gap 9 L Estim Creat Clear Calc 61.2 Estimated GFR > 60 Random Glucose 94 Estimat Average Glucose Hemoglobin A1c % Calcium 8.7 D Magnesium 1.9 Total Bilirubin 0.7 AST 30 ALT 18 Alkaline Phosphatase 57 Troponin I High Sens B-Natriuretic Peptide Total Protein 5.2 L Albumin 2.9 L Triglycerides 82 Cholesterol 114 LDL Cholesterol, Calc 39 HDL Cholesterol 59 Lipase TSH Free T4 Urine Color Urine Appearance Urine pH Ur Specific [place] Urine Protein Urine Glucose (UA) Urine Ketones Urine Blood Urine Nitrite Ur Leukocyte Esterase Urine RBC Urine WBC Ur Squamous Epith Cells Urine Bacteria Hyaline Casts Ethyl Alcohol Influenza Type A (PCR) Influenza Type B (PCR) RSV RNA Qual (PCR) SARS-CoV-2 RNA (RT-PCR) Assessment and Plan (1) Non-ST elevation [place] (NSTEMI): Status: Acute (2) Alcohol use disorder: Status: Acute (3) Weight loss: Status: Acute Plan 74/F with HTN, hypothyroidism, chronic alcohol dependency, here with diarrhea weight loss and found to have NSTEMI NSTEMI, inf wall changes on ECG Troponin 600-->500 medical management with ASA, stattin, BB, IV heparin for 48 to 72 hours echocardiogram to assess wall motion cardiology consultation to guide further management and risk stratification No sings of heart failure despite elevated BNP alcohol use disorder, high risk for withdrawal, drinks 1 pint of liquor/day Diarrhea, unintentional weight loss since december last year mild protein calory malnutrition, supplement check gi panel, cdif pending lactose controlled diet last colonoscopy in 2012, no f/u non contrast CT of Abd/pelv No acute finding will need gi eval, and likely colonoscopy in the future Hypokalemia, hypomagnesemia d/t chronic alcohol use replace HTN continue Norvasc Metoprolol-new Tobacco use disorder NRT Hypothyroidism continue leveothyroxine, TSH 0.03, FT4 1.37 DVT prophylaxis: heparin Full code at least 2 midnights admit for NSTEMI on IV heparin Quality Stroke Does the patient have a stroke diagnosis?: No VTE Prior VTE?: No VTE Risk Level:: Medical - moderate - high VTE Device Contraindication: Treatment Not Indicated VTE Drug Contraindication: N/A - Med Ordered
--- NOTE | 2024-08-30 11:04 | MHC.CLN ---
PT IS MODERATELY MALNOURISHED PT WITH MILDLY DEPLETED SUBCUTANEOUS FAT AND MUSCLE MASS WITH BMI 18.6 AND 9% WT LOSS X8 MONTHS WITH CHRONIC POOR PO INTAKE DIET RX: LACTOSE CONTROLLED RECOMMEND ADDING ENSURE BID TO INCREASE KCALS SUPP TO PROVIDE 700KCALS, 40G PROTEIN (SUPP IS APPROPRIATE FOR LACTOSE INTOLERANCE) MONITOR PO INTAKE AND ENCOURAGE SUPPLEMENTS SEE FULL CLINICAL NUTRITION ASSESSMENT
--- NOTE | 2024-08-30 11:29 | P.CONCA_ITS ---
History of Present Illness History of Present Illness Date of Service: 08/30/24 Chief complaint: Nstemi Narrative: This is a cardiology consultation regarding elevated troponins. Discussed with the patient and also discussed with brother at the bedside. It seems that she has heavy alcohol user and drinks about a pt of vodka a day. Also smoker. She has been losing weight for the last few months. Under nourished. She has been having diarrhea several times a day for the last few days and in this context, she was brought to the emergency room. She was found to have elevated troponins and subsequently, she was admitted as NSTEMI. Patient herself denies any chest pains or in fact any cardiac symptoms whatsoever. On review of prior [facility] records, it seems that she has undergone cardiac catheterization in the past that had revealed chronic total occlusion of right coronary artery with moderate mid LAD stenosis and mild circumflex disease. History of atrial tachycardia status post ablation in 2016. However, it does not appear that she actually follows up with any early childhood education worker. Review of Systems 2 Review of Systems: Yes all other systems are reviewed and are negative Constitutional: Constitutional: Reports as per HPI and Reports no additional constitutional complaints Eyes: Eyes: Reports as per HPI and Denies no additional eye complaints ENT: Denies system reviewed and no additional complaints, except as documented and Reports as per HPI Cardiovascular: Cardiovascular: Reports as per HPI, Reports no additional cardiovascular complaints, Denies acrocyanosis, Denies cool extremities, Denies chest pain, Denies leg edema, Denies lightheadedness, Denies palpitations and Denies dyspnea Respiratory: Respiratory: Reports as per HPI, Denies no additional respiratory complaints and Denies dyspnea Gastrointestinal: Gastrointestinal: Reports as per HPI and Denies no additional gastrointestinal complaints Genitourinary: Genitourinary: Reports as per HPI Musculoskeletal: Musculoskeletal: Reports no additional musculoskeletal complaints and Reports as per HPI Integumentary/Breasts: Skin/Breast: Reports system reviewed and no additional complaints, except as docu Neurologic: Reports system reviewed and no additional complaints, except as documented and Reports as per HPI Psychiatric: Psychiatric: Reports no additional psychiatric complaints and Reports as per HPI Endocrine: Endocrine: Reports no additional endocrine complaints, Reports as per HPI and Denies palpitations Hematologic/Lymphatic: Hematologic/Lymphatic: Reports no additional hematologic/lymphatic complaints and Reports as per HPI Allergic/Immunologic: Allergic/Immunologic: Reports no additional allergic/immunologic complaints and Reports as per HPI [facility] Family History Family History (Updated 08/30/24 @ 11:34 by Paddy Kaur MD) Mother Lung cancer Social History Social History Household Members: Family and Children Housing: House Do you presently have visiting nurse or other home services: No Alcohol intake: current Alcohol intake frequency: 3 or more drinks per day Alcohol type: hard liquor Patient Tobacco Use Status: Current everyday Tobacco user Tobacco use type: Cigarette Cigarette Packs Per Day: 0.5 Cigarettes Per Day: 10.0 Meds Allergies Allergy/AdvReac Type Severity Reaction Status Date / Time No Known Allergies Allergy Verified 08/29/24 15:44 [No Known Allergies*] Active Medications: Current Medications Acetaminophen (Acetaminophen 325 Mg Tablet) 650 mg PO Q6H PRN PRN Reason: Pain, Mild 1-3,fever,headache Aspirin (Aspirin 81 Mg Tab.Chew) 81 mg PO DAILY [facility] Last Admin: 08/30/24 09:21 Dose: 81 mg Atorvastatin Calcium (Atorvastatin Calcium 40 Mg Tablet) 40 mg PO BEDTIME JG Last Admin: 08/29/24 21:55 Dose: 40 mg Calcium Carbonate (Calcium Carbonate 750 Mg Tab.Chew) 750 mg PO Q4H PRN PRN Reason: Heartburn Heparin Sodium (Porcine) (Heparin Sodium,Porcine 5,000 Unit/Ml Vial) 1,700 unit 40 unit/kg (1700 unit) IVPUSH PROTOCOL BOLUS PRN; Protocol PRN Reason: 40 unit/kg - Heparin Protocol Last Admin: 08/30/24 01:02 Dose: 1,700 unit Heparin Sodium (Porcine) (Heparin Sodium,Porcine 5,000 Unit/Ml Vial) 3,400 unit 80 unit/kg (3400 unit) IVPUSH PROTOCOL BOLUS PRN; Protocol PRN Reason: 80 unit/kg - Heparin Protocol Heparin Sodium/Sodium Chloride (Heparin Sodium,Porcine/1/2ns) 25,000 unit in 250 mls @ 0 mls/hr IVCONT .Q0M [facility]; Protocol Last Titration: 08/30/24 07:36 Dose: 14 units/kg/hr, 5.98 mls/hr Magnesium Hydroxide (Milk Of Magnesia 30 Ml Oral.Susp) 30 ml PO DAILY PRN PRN Reason: Constipation Melatonin (Melatonin 3 Mg Tablet) 6 mg PO BEDTIME PRN PRN Reason: Insomnia Metoprolol Tartrate (Metoprolol Tartrate 25 Mg Tablet) 25 mg PO BID [facility]; Protocol Last Admin: 08/30/24 09:21 Dose: 25 mg Nicotine (Nicotine 14 Mg Patch.Td24) 14 mg TRANSDERMA DAILY [facility] Last Admin: 08/30/24 09:21 Dose: 14 mg Nicotine Polacrilex (Nicotine Polacrilex 2 Mg Gum) 2 mg BUCCAL Q2H PRN PRN Reason: Nicotine Cravings Nitroglycerin (Nitroglycerin 0.4 Mg Tab.Subl) 0.4 mg SUBLINGUAL Q5MX3 PRN PRN Reason: Chest Pain Ondansetron HCl (Ondansetron Hcl 4 Mg/2 Ml Vial) 4 mg IVPUSH Q8H PRN PRN Reason: Nausea and Vomiting Pharmacy Consult (Consult Rx Etoh Phenob Im/Po) 1 each MISCELLANE ONCE PRN; Protocol PRN Reason: Consult order Phenobarbital (Phenobarbital 30 Mg Tablet) 30 mg PO BID [facility] Stop: 08/31/24 21:01 Last Admin: 08/30/24 09:21 Dose: 30 mg Phenobarbital (Phenobarbital 15 Mg Tablet) 15 mg PO BID [facility] Stop: 09/02/24 21:01 Phenobarbital (Phenobarbital 15 Mg Tablet) 15 mg PO DAILY [facility] Stop: 09/04/24 09:01 Sodium Chloride (0.9 % Sodium Chloride Flush 3 Ml Syringe) 3 ml IVFLUSH QSHIFT [facility] Last Admin: 08/30/24 09:22 Dose: 3 ml Home Medications ?Medication ?Instructions ?Recorded ?Confirmed ?Last Taken ?Type acetaminophen 325 mg tablet 650 mg PO Q4H PRN Pain 08/29/24 08/29/24 Unknown History (Tylenol) albuterol sulfate 90 mcg/actuation 2 puff inhalation Q4-6H PRN 08/29/24 08/29/24 Unknown History aerosol inhaler Shortness Of Breath Or Wheezing amlodipine 10 mg tablet 10 mg PO DAILY 08/29/24 08/29/24 08/29/24 History ergocalciferol (vitamin D2) 1,250 1,250 mcg PO Q14D 08/29/24 08/29/24 08/16/24 History mcg (50,000 unit) capsule levothyroxine 88 mcg tablet 88 mcg PO DAILY@0600 08/29/24 08/29/24 08/29/24 History Physical Exam 2 Vital Signs: Vital Signs: Last Vital Signs Temp 99.0 F 08/30/24 11:01 Pulse 80 08/30/24 11:01 Resp 18 08/30/24 11:01 BP 119/54 L 08/30/24 11:01 Pulse Ox 94 08/30/24 11:01 O2 Del Method Nasal Cannula 08/30/24 11:01 O2 Flow Rate 3 08/30/24 11:01 BMI result Body Mass Index 18.6 Const: General: comfortable and no acute distress Nutritional Appearance: m alnourished, thin and underweight Orientation/consciousness: patient oriented x3 HEENT: Other: Unremarkable Head: Yes normal to inspection Neck: Neck: Yes normal visual inspection Chest: Chest palpation & inspection: normal inspection of the chest Resp: Auscultation: clear to auscultation bilaterally Cardio: Palpation: normal PMI Heart sounds: S1 normal heart sound present, S2 normal heart sound present, no gallops, no murmurs and no rubs GI: Palpation (GI): Soft to palpation Back/Spine/Pelvis: Other: unremarkable Skin: General skin exam: no rashes or lesions noted Neuro: General: patient oriented x3 Extrem: General: Yes normal to inspection Psych: Mental Status: mental status grossly normal Objective Labs and Meds 08/30/24 07:07 08/30/24 07:07 Lab results: Laboratory Results - last 24 hr 08/29/24 08/29/24 08/29/24 15:58 17:30 Unknown WBC 7.5 6.7 RBC 3.75 L 3.57 L Hgb 12.8 12.2 Hct 38.0 36.9 L MCV 101.3 H 103.4 H MCH 34.1 H 34.2 H MCHC 33.7 33.1 RDW 14.2 14.2 Plt Count 226 199 MPV 8.7 L 9.0 L Immature Gran % (Auto) 0.5 H Neut % (Auto) 62.7 Lymph % (Auto) 13.[address] [place] % (Auto) 21.4 H Eos % (Auto) 1.2 Baso % (Auto) 1.2 Lymph # (Auto) 1.[address] [place] # (Auto) 1.6 H Eos # (Auto) 0.1 Baso # (Auto) 0.1 Abs Immat Gran (auto) 0.04 H Absolute Neuts (auto) 4.7 Absolute Nucleated RBC 0.000 0.000 Nucleated RBC % (auto) 0.0 0.0 Smear Tech's Comments VERIFIED PT 10.9 INR 1.0 aPTT Heparin Protocol 31.9 L Sodium 141 Potassium 3.2 L Chloride 108 Carbon Dioxide 25 Anion Gap 11 L BUN 21 H Creatinine 0.66 Estim Creat Clear Calc 48.9 Estimated GFR > 60 Random Glucose 105 Estimat Average Glucose 100 Hemoglobin A1c % 5.1 Calcium 9.4 Magnesium 1.5 L Total Bilirubin 0.8 AST 36 H ALT 23 Alkaline Phosphatase 64 Troponin I High Sens 644.1 H* 575.8 H* B-Natriuretic Peptide 433 H Total Protein 6.2 L Albumin 3.6 Triglycerides Cholesterol LDL Cholesterol, Calc HDL Cholesterol Lipase 12 TSH 0.03 L Free T4 1.37 Urine Color Yellow Urine Appearance Clear Urine pH 6.0 Ur Specific [place] 1.025 Urine Protein 100 (2+) H Urine Glucose (UA) Negative Urine Ketones Negative Urine Blood Negative Urine Nitrite Negative Ur Leukocyte Esterase Negative Urine RBC 0-2 Urine WBC 0-5 Ur Squamous Epith Cells 6-10 Urine Bacteria 1+ Hyaline Casts 0-2 Ethyl Alcohol < 10 Influenza Type A (PCR) NEGATIVE Influenza Type B (PCR) NEGATIVE RSV RNA Qual (PCR) NEGATIVE SARS-CoV-2 RNA (RT-PCR) NEGATIVE 08/30/24 08/30/24 00:26 07:07 WBC 6.5 RBC 3.28 L Hgb 11.2 L Hct 34.3 L MCV 104.6 H MCH 34.1 H MCHC 32.7 RDW 14.5 Plt Count 171 MPV 9.0 L Immature Gran % (Auto) Neut % (Auto) Lymph % (Auto) [place] % (Auto) Eos % (Auto) Baso % (Auto) Lymph # (Auto) [place] # (Auto) Eos # (Auto) Baso # (Auto) Abs Immat Gran (auto) Absolute Neuts (auto) Absolute Nucleated RBC 0.000 Nucleated RBC % (auto) 0.0 Smear Tech's Comments PT 10.5 L INR 0.9 aPTT Heparin Protocol 50.3 L D 56.0 Sodium 144 Potassium 3.7 Chloride 113 H Carbon Dioxide 26 Anion Gap 9 L BUN 19 H Creatinine 0.55 Estim Creat Clear Calc 61.2 Estimated GFR > 60 Random Glucose 94 Estimat Average Glucose Hemoglobin A1c % Calcium 8.7 D Magnesium 1.9 Total Bilirubin 0.7 AST 30 ALT 18 Alkaline Phosphatase 57 Troponin I High Sens B-Natriuretic Peptide Total Protein 5.2 L Albumin 2.9 L Triglycerides 82 Cholesterol 114 LDL Cholesterol, Calc 39 HDL Cholesterol 59 Lipase TSH Free T4 Urine Color Urine Appearance Urine pH Ur Specific [place] Urine Protein Urine Glucose (UA) Urine Ketones Urine Blood Urine Nitrite Ur Leukocyte Esterase Urine RBC Urine WBC Ur Squamous Epith Cells Urine Bacteria Hyaline Casts Ethyl Alcohol Influenza Type A (PCR) Influenza Type B (PCR) RSV RNA Qual (PCR) SARS-CoV-2 RNA (RT-PCR) ECG Interpretation: EKG with underlying sinus tachycardia at 103/Min; right bundle-branch block pattern; inferior T inversions. Imaging Radiologist's impression: Impressions Chest X-Ray 08/29/24 16:00 IMPRESSION: Unremarkable examination. Mild left apical pleural thickening without effusion. Electronically signed by: Peter Muñoz MD 08/29/2024 04:26 PM EDT RP Assessment and Plan (1) Non-ST elevation [place] (NSTEMI): Status: Acute (2) Alcohol use disorder: Status: Acute Plan Cardiac catheterization 2021-proximal RCA 100% stenosis, chronic total occlusion. Moderate mid LAD stenosis. Mild circumflex stenosis. Troponin levels are 644 in 575. Overall, suspect that the elevated troponins are in the setting of demand/type 2 NSTEMI related to diarrhea. For medications, she is on IV heparin drip, aspirin, beta-blockers. Ideally statins, but she has excessive alcohol history but no active liver enzyme elevation. We will get an echocardiogram for cardiac function assessment. Overall, looking at the picture she will be for conservative care only. She is a poor candidate for invasive studies and will be at very high-risk of bleeding with any interventions. Alcohol detoxification protocols as appropriate. Discussed about this with brother in detail. Procedures Date of Service Date of Service: 08/30/24
[2024-08-30 13:41] LABS: PTT Heparin Drip 45.6 SEC (53-77.9)
--- NOTE | 2024-08-30 14:59 | CONS_ITS ---
DATE OF SERVICE: 08/30/2024 REFERRING PHYSICIAN: Dr. Willard REASON FOR CONSULTATION: Diarrhea and weight loss. HISTORY OF PRESENT ILLNESS: The patient is a pleasant 74-year-old woman who was admitted to the hospital after presenting to the emergency room yesterday with complaints of diarrhea and weight loss. She states she has had intermittent diarrhea for some time and does not quantify this. There has been no rectal bleeding. Family members are also present, and the history is obtained from them as well. The patient states stools have been intermittently formed and intermittently diarrheal. She has no complaints of abdominal pain. She does admit to drinking a pint of liquor on daily basis and does smoke. She believes she underwent a colonoscopy many years ago. Records available here indicate a colonoscopy in 2012 with removal of a tubular adenoma for which a 5-year followup was recommended, we reviewed this today. During her evaluation in the emergency department, she was found to have changes consistent with an NSTEMI. She has been admitted to the hospital, given IV heparin, and is currently undergoing cardiac echo. Cardiology consultation has also been obtained. PAST MEDICAL HISTORY: 1. Alcohol abuse. 2. Hypertension. 3. Hypothyroidism. 4. 10-pound weight loss since December. CURRENT MEDICATIONS: Her current medication list is reviewed in the chart. ALLERGIES: THERE ARE NONE REPORTED. FAMILY HISTORY: This is reviewed with the patient and is noncontributory. SOCIAL HISTORY: Tobacco and alcohol use are as above. REVIEW OF SYSTEMS: SKIN: No pruritus. HEENT: Negative. CARDIOPULMONARY: No shortness of breath or chest pain currently. GASTROINTESTINAL: As above. GENITOURINARY: Negative. NEUROPSYCHIATRIC: Negative. PHYSICAL EXAMINATION: GENERAL: Shows a pleasant female, lying in bed. She is currently undergoing echocardiogram and the remainder of the physical exam is deferred until later. Later examination shows: VSS, afeb skin is anicteric HEENT is showing temporal wasting neck is without adenopathy lungs are clear heart shows RRR no murmur, normal s1 and s2 abdomen is soft and nontender extremities are thin, without edema LABORATORY DATA AND IMAGING STUDIES: Reviewed. IMPRESSION: Diarrhea with weight loss. Her CT scan is reassuring in the sense that it does not show any evidence of colonic mass or tumor. She will likely need eventual outpatient colonoscopy given her symptoms, at which time biopsies can be obtained to evaluate for microscopic or collagenous colitis. This can be arranged once her cardiac issues are stabilized. This was discussed with the patient and her family. Thanks for asking me to see her. I will follow her in the hospital with you. MD FATMATA Low/HALLIE / [id number] MTDD
[2024-08-30] MEDS: Acetaminophen 325 MG TABLET 650 MG PO (15:56)
[2024-08-30] MEDS: Heparin Sodium,Porcine/1/2NS 25,000 UNIT/250 ML IV.SOLN 6.83 UNIT IVCONT (17:55)
[2024-08-30 20:21] LABS: PTT Heparin Drip 58.8 SEC (53-77.9)
[2024-08-30] MEDS: Melatonin 3 MG TABLET 6 MG PO (22:28)
[2024-08-30] MEDS: Atorvastatin Calcium 40 MG TABLET PO (22:29)
[2024-08-31] VITALS (8 sets, daily range): BP systolic 99–124; BP diastolic 51–57; PULSE 75–91; RESP 16–20; TEMP 36–37.1; O2SAT 94–97
[2024-08-31] MEDS: 0.9 % Sodium Chloride Flush 3 ML SYRINGE IVFLUSH ×4 (01:06→22:23)
[2024-08-31 02:21] LABS: PTT Heparin Drip 41.3 SEC (53-77.9)
[2024-08-31] MEDS: Heparin Sodium,Porcine 5,000 UNIT/ML VIAL 1700 UNIT IVPUSH (02:29)
[2024-08-31] MEDS: Acetaminophen 325 MG TABLET 650 MG PO ×2 (05:43→13:58)
[2024-08-31 08:29] LABS: PTT Heparin Drip 63.5 SEC (53-77.9)
[2024-08-31 08:34] LABS: Magnesium 1.6 mg/dL (1.6-2.6)
--- NOTE | 2024-08-31 09:45 | PM.PNCARD ---
Subjective Subjective Date of Service: 08/31/24 Interval history: Seen and examined patient and also discussed with brother. Patient has not got no overt cardiac complaints at this time. Review of Systems Review of Systems Yes all other systems are reviewed and are negative Constitutional: Reports as per HPI and Reports no additional constitutional complaints Eyes: Reports as per HPI and Denies no additional eye complaints Denies system reviewed and no additional complaints, except as documented and Reports as per HPI Cardiovascular: Reports as per HPI, Reports no additional cardiovascular complaints, Denies acrocyanosis, Denies cool extremities, Denies chest pain, Denies leg edema, Denies lightheadedness, Denies palpitations and Denies dyspnea Respiratory: Reports as per HPI, Denies no additional respiratory complaints and Denies dyspnea Gastrointestinal: Reports as per HPI and Denies no additional gastrointestinal complaints Musculoskeletal: Reports no additional musculoskeletal complaints and Reports as per HPI Skin/Breast: Reports system reviewed and no additional complaints, except as docu Reports system reviewed and no additional complaints, except as documented and Reports as per HPI Psychiatric: Reports no additional psychiatric complaints and Reports as per HPI Endocrine: Reports no additional endocrine complaints, Reports as per HPI and Denies palpitations Hematologic/Lymphatic: Reports no additional hematologic/lymphatic complaints and Reports as per HPI Allergic/Immunologic: Reports no additional allergic/immunologic complaints and Reports as per HPI Physical Exam Vital Signs: Last Vital Signs Temp 97.9 F 08/31/24 07:01 Pulse 83 08/31/24 07:01 Resp 20 08/31/24 07:01 BP 114/52 L 08/31/24 07:01 Pulse Ox 94 08/31/24 07:01 O2 Del Method Nasal Cannula 08/31/24 07:01 O2 Flow Rate 5 08/31/24 07:01 BMI result Body Mass Index 18.6 Const General: comfortable and no acute distress Nutritional Appearance: malnourished, thin and underweight Orientation/consciousness: patient oriented x3 HEENT Other: Unremarkable Head: Yes normal to inspection Neck Neck: Yes normal visual inspection Chest Chest palpation & inspection: normal inspection of the chest Resp Auscultation: clear to auscultation bilaterally Cardio Palpation: normal PMI Heart sounds: S1 normal heart sound present, S2 normal heart sound present, no gallops, no murmurs and no rubs GI Palpation (GI): Soft to palpation Back/Spine/Pelvis Other: unremarkable Skin General skin exam: no rashes or lesions noted Neuro General: patient oriented x3 Extrem General: Yes normal to inspection Psych Mental Status: mental status grossly normal Objective Labs and Meds 08/30/24 07:07 08/30/24 07:07 Lab results: Laboratory Results - last 24 hr 08/30/24 08/30/24 08/31/24 13:16 20:07 02:08 aPTT Heparin Protocol 45.6 L 58.8 D 41.3 L D Magnesium 08/31/24 08:05 aPTT Heparin Protocol 63.5 D Magnesium 1.6 Progress Note: A&P Assessment and plan (1) Non-ST elevation [place] (NSTEMI): Status: Acute (2) Alcohol use disorder: Status: Acute (3) Malnutrition: Status: Acute Plan Cardiac catheterization 2021-proximal RCA 100% stenosis, chronic total occlusion. Moderate mid LAD stenosis. Mild circumflex stenosis. Troponin levels are 644 in 575. Overall, suspect that the elevated troponins are in the setting of demand/type 2 NSTEMI related to diarrhea. For medications, she is on IV heparin drip x 48hrs, aspirin, beta-blockers, statins. Echocardiogram performed but could not be reported due to technical issues. Grossly, no overt findings on initial preview. Otherwise, no need for any invasive workup from NSTEMI standpoint. She is a poor candidate as well because of low body weight and high-risk of bleeding. Main issues will lifestyle modifications, stopping alcohol use and improving her overall health. Overall, guarded prognosis. Discussed with brother and also discussed with Dr. Willard. Time Spent With Patient Time: Total time managing care of this patient today ____ minutes. Progress Note: Quality Stroke Does the patient have a stroke diagnosis?: No Procedures Date of Service Date of Service: 08/31/24
[2024-08-31] MEDS: Nicotine 14 MG PATCH.TD24 TRANSDERMA (10:32)
[2024-08-31] MEDS: Metoprolol Tartrate 25 MG TABLET PO ×2 (10:35→22:22)
[2024-08-31] MEDS: Aspirin 81 MG TAB.CHEW PO (10:36)
[2024-08-31] MEDS: PHENobarbitaL 30 MG TABLET PO ×2 (10:37→22:22)
--- NOTE | 2024-08-31 11:29 | P.PNIM_ITS ---
Subjective Subjective Date of Service: 08/31/24 Interval History: f/u on NSTEMI, no chest pain, hemodynamically stable. No chest pain or sob, no diarrhea, no sings of alcohol withdrawal at this time frail Physical Exam 2 Vital Signs: Vital Signs: Last Vital Signs Temp 98.7 F 08/31/24 10:51 Pulse 91 08/31/24 10:51 Resp 20 08/31/24 10:51 BP 109/53 L 08/31/24 10:51 Pulse Ox 95 08/31/24 10:51 O2 Del Method Nasal Cannula 08/31/24 10:51 O2 Flow Rate 4 08/31/24 10:51 BMI result Body Mass Index 18.6 Const: Other: General: AO X 3, no acute distress, looks malnurished Resp: CTA bilateral CVS: S1,S2,RRR GI: +BS, NT, no distention Skin: No rash Neuro: motor grossly intact, no tremors Psych: appropriate affect Objective Data Active Medications Acetaminophen (Acetaminophen 325 Mg Tablet) 650 mg PO Q6H PRN PRN Reason: Pain, Mild 1-3,fever,headache Last Admin: 08/31/24 05:43 Dose: 650 mg Documented By: CHARLES Aspirin (Aspirin 81 Mg Tab.Chew) 81 mg PO DAILY [facility] Last Admin: 08/31/24 10:36 Dose: 81 mg Documented By: CHARLES Atorvastatin Calcium (Atorvastatin Calcium 40 Mg Tablet) 40 mg PO BEDTIME [facility] Last Admin: 08/30/24 22:29 Dose: 40 mg Documented By: DAVE Calcium Carbonate (Calcium Carbonate 750 Mg Tab.Chew) 750 mg PO Q4H PRN PRN Reason: Heartburn Heparin Sodium (Porcine) (Heparin Sodium,Porcine 5,000 Unit/Ml Vial) 1,700 unit 40 unit/kg (1700 unit) IVPUSH PROTOCOL BOLUS PRN; Protocol PRN Reason: 40 unit/kg - Heparin Protocol Last Admin: 08/31/24 02:29 Dose: 1,700 unit Documented By: DAVE Heparin Sodium (Porcine) (Heparin Sodium,Porcine 5,000 Unit/Ml Vial) 3,400 unit 80 unit/kg (3400 unit) IVPUSH PROTOCOL BOLUS PRN; Protocol PRN Reason: 80 unit/kg - Heparin Protocol Heparin Sodium/Sodium Chloride (Heparin Sodium,Porcine/1/2ns) 25,000 unit in 250 mls @ 0 mls/hr IVCONT .Q0M [facility]; Protocol Last Titration: 08/31/24 08:20 Dose: 18 units/kg/hr, 7.69 mls/hr Documented By: CHARLES Co-signed By: АНДРЕЙ Magnesium Hydroxide (Milk Of Magnesia 30 Ml Oral.Susp) 30 ml PO DAILY PRN PRN Reason: Constipation Melatonin (Melatonin 3 Mg Tablet) 6 mg PO BEDTIME PRN PRN Reason: Insomnia Last Admin: 08/30/24 22:28 Dose: 6 mg Documented By: DAVE Metoprolol Tartrate (Metoprolol Tartrate 25 Mg Tablet) 25 mg PO BID [facility]; Protocol Last Admin: 08/31/24 10:35 Dose: 25 mg Documented By: CHARLES Nicotine (Nicotine 14 Mg Patch.Td24) 14 mg TRANSDERMA DAILY [facility] Last Admin: 08/31/24 10:32 Dose: 14 mg Documented By: CHARLES Nicotine Polacrilex (Nicotine Polacrilex 2 Mg Gum) 2 mg BUCCAL Q2H PRN PRN Reason: Nicotine Cravings Nitroglycerin (Nitroglycerin 0.4 Mg Tab.Subl) 0.4 mg SUBLINGUAL Q5MX3 PRN PRN Reason: Chest Pain Ondansetron HCl (Ondansetron Hcl 4 Mg/2 Ml Vial) 4 mg IVPUSH Q8H PRN PRN Reason: Nausea and Vomiting Pharmacy Consult (Consult Rx Etoh Phenob Im/Po) 1 each MISCELLANE ONCE PRN; Protocol PRN Reason: Consult order Phenobarbital (Phenobarbital 30 Mg Tablet) 30 mg PO BID [facility] Stop: 08/31/24 21:01 Last Admin: 08/31/24 10:37 Dose: 30 mg Documented By: CHARLES Phenobarbital (Phenobarbital 15 Mg Tablet) 15 mg PO BID [facility] Stop: 09/02/24 21:01 Phenobarbital (Phenobarbital 15 Mg Tablet) 15 mg PO DAILY [facility] Stop: 09/04/24 09:01 Sodium Chloride (0.9 % Sodium Chloride Flush 3 Ml Syringe) [facility] Last Admin: 08/31/24 10:36 Dose: 3 ml Documented By: CHARLES Labs 08/30/24 07:07 08/30/24 07:07 Labs: Laboratory Results - last 24 hr 08/30/24 08/30/24 08/31/24 13:16 20:07 02:08 aPTT Heparin Protocol 45.6 L 58.8 D 41.3 L D Magnesium 08/31/24 08:05 aPTT Heparin Protocol 63.5 D Magnesium 1.6 Assessment and Plan (1) Non-ST elevation [place] (NSTEMI): Status: Acute (2) Alcohol use disorder: Status: Acute (3) Weight loss: Status: Acute Plan 74/F with HTN, hypothyroidism, chronic alcohol dependency, here with diarrhea weight loss and found to have NSTEMI NSTEMI, inf wall changes on ECG Troponin 600-->500 medical management with ASA, stattin, BB, IV heparin for 48 echocardiogram no WMA, ef > 70% cardiology advises medical management at this time No sings of heart failure despite elevated BNP alcohol use disorder, high risk for withdrawal, drinks 1 pint of liquor/day continue phenobarbital Diarrhea, unintentional weight loss since december last year mild protein calory malnutrition, supplement no more diarrhea, lactose controlled diet last colonoscopy in 2012, no f/u non contrast CT of Abd/pelv No acute finding seen by GI, colonoscopy in the future when medically stable HypOkalemia, hypomagnesemia d/t chronic alcohol use replace HTN hold Norvasc continue Metoprolol-new Tobacco use disorder NRT Hypothyroidism continue leveothyroxine, TSH 0.03, FT4 1.37 DVT prophylaxis: heparin Full code at least 2 midnights admit for NSTEMI on IV heparin Quality Stroke Does the patient have a stroke diagnosis?: No VTE Prior VTE?: No VTE Risk Level:: Medical - moderate - high VTE Device Contraindication: Treatment Not Indicated VTE Drug Contraindication: N/A - Med Ordered
--- NOTE | 2024-08-31 11:35 | MHC.CM.PN ---
EMR REVIEWED, PT W/NSTEMI REMAINS ON HEPARIN DRIP AND SUPPLEMENTAL O2 4L NC, ANTIC PT WILL NEED PT FOR DISPO, CM WILL CONT TO FOLLOW DC NEEDS.
[2024-08-31 12:04] LABS: Hematocrit 33.5 % (37.0-47.0); Hemoglobin 10.6 g/dl (12.0-16.0); Mean Corpuscular HGB Conc 31.6 g/dl (31.0-35.0); Mean Corpuscular Hemoglobin 34.1 pg (27.0-33.0); Mean Corpuscular Volume 107.7 fL (80.0-98.0); Mean Platelet Volume 9.3 fL (9.4-12.3); Platelet Count 147 X10*3/uL (160-400); Red Blood Count 3.11 X10*6/uL (4.20-5.50); Red Cell Distribution Width 14.2 % (11.0-16.0); White Blood Count 7.5 X10*3/uL (4.8-10.8)
[2024-08-31 12:20] LABS: Anion Gap 7 (12-20); Blood Urea Nitrogen 13 mg/dL (9-16); Calcium 8.9 mg/dL (8.4-10.2); Carbon Dioxide 28 mmol/L (22-29); Chloride 108 mmol/L (96-108); Creatinine Clr Calc Pharmacy 73.2; Estimated Glomerular Filt Rate > 60; Glucose Random 109 mg/dL (60-115); Potassium 3.6 mmol/L (3.3-5.1); Sodium 139 mmol/L (135-145)
--- NOTE | 2024-08-31 12:25 | MHC.CLN ---
F/U PT IS MODERATELY MALNOURISHED SEE FULL CLINICAL NUTRITION ASSESSMENT DATED 08/30/24 DIET RX: LACTOSE CONTROLLED RECEIVING ENSURE BID TO INCREASE KCALS SUPP PROVIDES 700KCALS, 40G PROTEIN (SUPP IS SUITABLE FOR LACTOSE INTOLERANCE) MONITOR PO INTAKE AND ENCOURAGE SUPPLEMENTS
--- NOTE | 2024-08-31 13:31 | P.PNGI_ITS ---
Subjective Subjective Date of Service: 08/31/24 Interval History: no diarrhea overnight tolerating diet Critical Care Time (minutes): 0 Physical Exam 2 Vital Signs: Vital Signs: Last Vital Signs Temp 98.7 F 08/31/24 10:51 Pulse 91 08/31/24 10:51 Resp 20 08/31/24 10:51 BP 109/53 L 08/31/24 10:51 Pulse Ox 95 08/31/24 10:51 O2 Del Method Nasal Cannula 08/31/24 10:51 O2 Flow Rate 4 08/31/24 10:51 BMI result Body Mass Index 18.6 GI: Other: abdomen is soft and nontender Objective Data Labs 08/31/24 11:57 08/31/24 11:57 Labs: Laboratory Results - last 24 hr 08/30/24 08/30/24 08/31/24 13:16 20:07 02:08 WBC RBC Hgb Hct MCV MCH MCHC RDW Plt Count MPV Absolute Nucleated RBC Nucleated RBC % (auto) aPTT Heparin Protocol 45.6 L 58.8 D 41.3 L D Sodium Potassium Chloride Carbon Dioxide Anion Gap BUN Creatinine Estim Creat Clear Calc Estimated GFR Random Glucose Calcium Magnesium 08/31/24 08/31/24 08:05 11:57 WBC 7.5 RBC 3.11 L Hgb 10.6 L Hct 33.5 L MCV 107.7 H MCH 34.1 H MCHC 31.6 RDW 14.2 Plt Count 147 L MPV 9.3 L Absolute Nucleated RBC 0.000 Nucleated RBC % (auto) 0.0 aPTT Heparin Protocol 63.5 D Sodium 139 Potassium 3.6 Chloride 108 Carbon Dioxide 28 Anion Gap 7 L BUN 13 Creatinine 0.46 L Estim Creat Clear Calc 73.2 Estimated GFR > 60 Random Glucose 109 Calcium 8.9 Magnesium 1.6 Procedures Date of Service Date of Service: 08/31/24 Progress Note: A&P Assessment and plan (1) Weight loss: Status: Acute Plan diarrhea and weight loss diarrhea has resolved. she can undergo outpatient colonoscopy when cleared from cardiac standpoint discussed with patient. Time Spent With Patient Time: Total time managing care of this patient today ____ minutes. Quality Stroke Does the patient have a stroke diagnosis?: No VTE Prior VTE?: No VTE Risk Level:: Medical - moderate - high VTE Device Contraindication: Treatment Not Indicated VTE Drug Contraindication: N/A - Med Ordered
[2024-08-31] MEDS: Levothyroxine Sodium 88 MCG TABLET PO (13:58)
[2024-08-31] MEDS: Ergocalciferol (Vitamin D2) 1,250 MCG CAPSULE 1250 MCG PO (14:02)
[2024-08-31 14:34] LABS: PTT Heparin Drip 63.3 SEC (53-77.9)
[2024-08-31 21:27] LABS: PTT Heparin Drip 53.9 SEC (53-77.9)
[2024-08-31] MEDS: Atorvastatin Calcium 40 MG TABLET PO (22:22)
[2024-08-31] MEDS: Melatonin 3 MG TABLET 6 MG PO (22:22)
[2024-09-01] MEDS: Acetaminophen 325 MG TABLET 650 MG PO ×4 (02:24→22:50)
[2024-09-01 04:00] VITALS: BP 86/45; PULSE 78; RESP 16; TEMP 36.9; O2SAT 91
[2024-09-01] MEDS: Levothyroxine Sodium 88 MCG TABLET PO (05:35)
[2024-09-01 08:00] VITALS: BP 125/60; PULSE 82; RESP 20; TEMP 36.5; O2SAT 96
[2024-09-01 08:28] LABS: Magnesium 1.6 mg/dL (1.6-2.6)
[2024-09-01] MEDS: Aspirin 81 MG TAB.CHEW PO (09:10)
[2024-09-01] MEDS: Nicotine 14 MG PATCH.TD24 TRANSDERMA (09:10)
[2024-09-01] MEDS: Metoprolol Tartrate 25 MG TABLET PO ×2 (09:11→20:32)
[2024-09-01] MEDS: 0.9 % Sodium Chloride Flush 3 ML SYRINGE IVFLUSH ×3 (09:11→22:55)
[2024-09-01] MEDS: PHENobarbitaL 15 MG TABLET PO ×2 (09:11→20:32)
[2024-09-01] MEDS: Enoxaparin Sodium 40 MG/0.4 ML SYRINGE SUBCUT (09:11)
[2024-09-01 09:17] LABS: Basophils Percent Auto 0.4 % (0-2); Eosinophils Absolute Auto 0.1 X10*3/uL (0.0-0.4); Eosinophils Percent Auto 1.2 % (0-4); Hematocrit 32.2 % (37.0-47.0); Hemoglobin 10.3 g/dl (12.0-16.0); Imm Gran Abs Auto 0.03 X10*3/uL (0.00-0.03); Imm Gran Pct Auto 0.4 % (0.0-0.4); Lymphocytes Absolute Auto 1.1 X10*3/uL (1.2-4.9); Lymphocytes Percent Auto 15.7 % (20-40); MANUAL DIFF FLAG SCAN; Mean Corpuscular Hemoglobin 34.3 pg (27.0-33.0); Mean Corpuscular Volume 107.3 fL (80.0-98.0); Mean Platelet Volume 9.9 fL (9.4-12.3); Monocytes Absolute Auto 1.9 X10*3/uL (0.1-1.2); Neutrophils Absolute Auto 3.6 x10*3/uL (2.0-8.3); Neutrophils Percent Auto 53.3 % (45-73); Platelet Count 173 X10*3/uL (160-400); SCAN SMEAR FLAG 1; White Blood Count 6.7 X10*3/uL (4.8-10.8)
[2024-09-01 09:27] LABS: Alanine Aminotransferase 11 U/L (0-31); Albumin Level 2.6 g/dL (3.5-5.0); Alkaline Phosphatase 55 U/L (39-117); Anion Gap 11 (12-20); Aspartate Amino Transferase 19 U/L (5-31); Bilirubin Total 0.3 mg/dL (0.0-1.0); Blood Urea Nitrogen 13 mg/dL (9-16); Carbon Dioxide 28 mmol/L (22-29); Chloride 104 mmol/L (96-108); Creatinine Clr Calc Pharmacy 68.8; Estimated Glomerular Filt Rate > 60; Glucose Random 81 mg/dL (60-115); Potassium 3.9 mmol/L (3.3-5.1); Sodium 139 mmol/L (135-145)
[2024-09-01 09:46] LABS: SLIDE REVIEW VERIFIED
[2024-09-01] MEDS: Lactated Ringers 1,000 ML 150 ML IVCONT ×2 (11:34→18:06)
[2024-09-01 12:00] VITALS: BP 90/51; PULSE 82; RESP 22; TEMP 36.8; O2SAT 89
--- NOTE | 2024-09-01 12:09 | HO.PM.IMPN ---
Subjective Subjective Date of Service: 09/01/24 Interval History: Patient feeling week and feels dizzy blood pressure is low systolic in 80s started IVF, Review of Systems Gen: no fever Resp: no sob, no cough CV: no chest, no LOUISE, no leg edema GI: No n/v, no abd pain, + diarrhea Neuro: No confusion Physical Exam Vital Signs: Vital Signs: Last Vital Signs Temp 97.7 F 09/01/24 08:00 Pulse 82 09/01/24 08:00 Resp 20 09/01/24 08:00 BP 125/60 09/01/24 08:00 Pulse Ox 96 09/01/24 08:00 O2 Del Method Oxymask 09/01/24 08:00 O2 Flow Rate 2 09/01/24 08:00 BMI result Body Mass Index 18.6 Const: Other: General: AO X 3, no acute distress, looks malnurished Resp: CTA bilateral CVS: S1,S2,RRR GI: +BS, NT, no distention Skin: No rash Neuro: motor grossly intact, no tremors Psych: appropriate affect Objective Data Active Medications Acetaminophen (Acetaminophen 325 Mg Tablet) 650 mg PO Q6H PRN PRN Reason: Pain, Mild 1-3,fever,headache Last Admin: 09/01/24 09:10 Dose: 650 mg Documented By: LUCAS Albuterol Sulfate (Albuterol Sulfate 90 Mcg 8 Gm Inhaler) 2 puff INHALE Q4H PRN PRN Reason: Shortness Of Breath Or Wheezing Aspirin (Aspirin 81 Mg Tab.Chew) 81 mg PO DAILY [facility] Last Admin: 09/01/24 09:10 Dose: 81 mg Documented By: LUCAS Atorvastatin Calcium (Atorvastatin Calcium 40 Mg Tablet) 40 mg PO BEDTIME [facility] Last Admin: 08/31/24 22:22 Dose: 40 mg Documented By: JOHANNA Calcium Carbonate (Calcium Carbonate 750 Mg Tab.Chew) 750 mg PO Q4H PRN PRN Reason: Heartburn Enoxaparin Sodium (Enoxaparin Sodium 40 Mg/0.4 Ml Syringe) 40 mg SUBCUT Q24H [facility] Last Admin: 09/01/24 09:11 Dose: 40 mg Documented By: LUCAS Ergocalciferol (Ergocalciferol (Vitamin D2) 1,250 Mcg Capsule) 1,250 mcg PO Q14D [facility] Last Admin: 08/31/24 14:02 Dose: 1,250 mcg Documented By: CHARLES Lactated Ringer's (Lr) 1,000 mls @ 150 mls/hr IVCONT .Q6H40M [facility] Last Admin: 09/01/24 11:34 Dose: 150 mls/hr Documented By: LUCAS Levothyroxine Sodium (Levothyroxine Sodium 88 Mcg Tablet) 88 mcg PO DAILY@0600 [facility] Last Admin: 09/01/24 05:35 Dose: 88 mcg Documented By: MYRON Magnesium Hydroxide (Milk Of Magnesia 30 Ml Oral.Susp) 30 ml PO DAILY PRN PRN Reason: Constipation Melatonin (Melatonin 3 Mg Tablet) 6 mg PO BEDTIME PRN PRN Reason: Insomnia Last Admin: 08/31/24 22:22 Dose: 6 mg Documented By: JOHANNA Metoprolol Tartrate (Metoprolol Tartrate 25 Mg Tablet) 25 mg PO BID [facility]; Protocol Last Admin: 09/01/24 09:11 Dose: 25 mg Documented By: LUCAS Nicotine (Nicotine 14 Mg Patch.Td24) 14 mg TRANSDERMA DAILY [facility] Last Admin: 09/01/24 09:10 Dose: 14 mg Documented By: LUCAS Nicotine Polacrilex (Nicotine Polacrilex 2 Mg Gum) 2 mg BUCCAL Q2H PRN PRN Reason: Nicotine Cravings Nitroglycerin (Nitroglycerin 0.4 Mg Tab.Subl) 0.4 mg SUBLINGUAL Q5MX3 PRN PRN Reason: Chest Pain Ondansetron HCl (Ondansetron Hcl 4 Mg/2 Ml Vial) 4 mg IVPUSH Q8H PRN PRN Reason: Nausea and Vomiting Pharmacy Consult (Consult Rx Etoh Phenob Im/Po) 1 each MISCELLANE ONCE PRN; Protocol PRN Reason: Consult order Phenobarbital (Phenobarbital 15 Mg Tablet) 15 mg PO BID [facility] Stop: 09/02/24 21:01 Last Admin: 09/01/24 09:11 Dose: 15 mg Documented By: LUCAS Phenobarbital (Phenobarbital 15 Mg Tablet) 15 mg PO DAILY [facility] Stop: 09/04/24 09:01 Sodium Chloride (0.9 % Sodium Chloride Flush 3 Ml Syringe) 3 ml IVFLUSH QSHIFT [facility] Last Admin: 09/01/24 09:11 Dose: 3 ml Documented By: LUCAS Labs 09/01/24 07:20 09/01/24 07:20 Labs: Laboratory Results - last 24 hr 08/31/24 08/31/24 08/31/24 11:57 14:19 21:08 MCV MCH MCHC RDW Plt Count MPV Immature Gran % (Auto) Neut % (Auto) Lymph % (Auto) Millard % (Auto) Eos % (Auto) Baso % (Auto) Lymph # (Auto) Millard # (Auto) Eos # (Auto) Baso # (Auto) Abs Immat Gran (auto) Absolute Neuts (auto) Absolute Nucleated RBC Nucleated RBC % (auto) Smear Tech's Comments Hold Purple Top SEE NOTE aPTT Heparin Protocol 63.3 53.9 Anion Gap 7 L Estim Creat Clear Calc 73.2 Estimated GFR > 60 Random Glucose 109 Calcium 8.9 Magnesium Total Bilirubin AST ALT Alkaline Phosphatase Total Protein Albumin 09/01/24 07:20 MCV 107.3 H MCH 34.3 H MCHC 32.0 RDW 14.0 Plt Count 173 MPV 9.9 Immature Gran % (Auto) 0.4 Neut % (Auto) 53.3 Lymph % (Auto) 15.7 L Millard % (Auto) 29.0 H Eos % (Auto) 1.2 Baso % (Auto) 0.4 Lymph # (Auto) 1.1 L Millard # (Auto) 1.9 H Eos # (Auto) 0.1 Baso # (Auto) 0.0 Abs Immat Gran (auto) 0.03 Absolute Neuts (auto) 3.6 Absolute Nucleated RBC 0.000 Nucleated RBC % (auto) 0.0 Smear Tech's Comments VERIFIED Hold Purple Top SEE NOTE aPTT Heparin Protocol Anion Gap 11 L Estim Creat Clear Calc 68.8 Estimated GFR > 60 Random Glucose 81 Calcium 9.0 Magnesium 1.6 Total Bilirubin 0.3 AST 19 ALT 11 Alkaline Phosphatase 55 Total Protein 5.0 L Albumin 2.6 L Assessment and Plan (1) Non-ST elevation [place] (NSTEMI): Status: Acute (2) Weight loss: Status: Acute (3) Malnutrition: Status: Acute (4) Alcohol use disorder: Status: Acute Plan 74/F with HTN, hypothyroidism, chronic alcohol dependency, here with diarrhea weight loss and found to have NSTEMI NSTEMI, inf wall changes on ECG Troponin 600-->500 medical management with ASA, stattin, BB, completed IV heparin for 48 echocardiogram no WMA, ef > 70% cardiology advises medical management at this time No sings of heart failure despite elevated BNP Hypotension, ? related to diarrhea, decrease oral intake no new murmur IVF and reassess alcohol use disorder, high risk for withdrawal, drinks 1 pint of liquor/day continue phenobarbital maryam, CiWA, folic acid and thiamine Diarrhea, unintentional weight loss since december last year mild protein calory malnutrition, supplement no more diarrhea, lactose controlled diet last colonoscopy in 2012, no f/u non contrast CT of Abd/pelv No acute finding seen by GI, colonoscopy in the future when medically stable HypOkalemia, hypomagnesemia d/t chronic alcohol use replaced and corrected HTN hold Norvasc continue Metoprolol-new Tobacco use disorder NRT Hypothyroidism continue leveothyroxine, TSH 0.03, FT4 1.37 DVT prophylaxis: Lovenox Full code need for inpatient: treatment of acute [place] Quality Stroke Does the patient have a stroke diagnosis?: No VTE Prior VTE?: No VTE Risk Level:: Medical - moderate - high VTE Device Contraindication: Treatment Not Indicated VTE Drug Contraindication: N/A - Med Ordered
[2024-09-01 15:52] VITALS: BP 111/59; PULSE 88; RESP 18; TEMP 37.1; O2SAT 92
[2024-09-01 18:37] LABS: B Type Natriuretic Peptide 654 pg/mL (<100)
[2024-09-01 19:49] VITALS: BP 125/60; PULSE 97; RESP 18; TEMP 36.8; O2SAT 95
[2024-09-01] MEDS: Atorvastatin Calcium 40 MG TABLET PO (20:32)
[2024-09-01] MEDS: Melatonin 3 MG TABLET 6 MG PO (22:54)
[2024-09-01] MEDS: hydrOXYzine HCL 10 MG TABLET PO (22:54)
[2024-09-01 23:38] VITALS: BP 113/55; PULSE 78; RESP 20; TEMP 36.8; O2SAT 92
[2024-09-02] VITALS (8 sets, daily range): BP systolic 115–153; BP diastolic 54–72; PULSE 75–94; RESP 16–18; TEMP 36.4–37.1; O2SAT 90–99
[2024-09-02] MEDS: Levothyroxine Sodium 88 MCG TABLET PO (05:06)
[2024-09-02] MEDS: Acetaminophen 325 MG TABLET 650 MG PO ×3 (05:06→23:36)
--- NOTE | 2024-09-02 08:29 | HO.PM.IMPN ---
Subjective Subjective Date of Service: 09/02/24 Interval History: Episose of hypotension yesterday, resolved with IVF remains on O2, frail and deconditioned, no further diarrhea reported not withdrawaing Review of Systems Gen: no fever Resp: + sob, no cough CV: no chest, no LOUISE, no leg edema GI: No n/v, no abd pain, + diarrhea Neuro: No confusion Physical Exam Vital Signs: Vital Signs: Last Vital Signs Temp 97.9 F 09/02/24 07:29 Pulse 79 09/02/24 07:29 Resp 16 09/02/24 07:29 BP 149/65 H 09/02/24 07:29 Pulse Ox 99 09/02/24 07:29 O2 Del Method Oxymask 09/02/24 07:29 O2 Flow Rate 2 09/02/24 07:29 BMI result Body Mass Index 18.6 Const: Other: General: AO X 3, no acute distress, looks malnurished Resp: CTA bilateral CVS: S1,S2,RRR GI: +BS, NT, no distention Skin: No rash Neuro: motor grossly intact, no tremors Psych: appropriate affect Objective Data Active Medications Acetaminophen (Acetaminophen 325 Mg Tablet) 650 mg PO Q6H PRN PRN Reason: Pain, Mild 1-3,fever,headache Last Admin: 09/02/24 05:06 Dose: 650 mg Documented By: SHAHRZAD Albuterol Sulfate (Albuterol Sulfate 90 Mcg 8 Gm Inhaler) 2 puff INHALE Q4H PRN PRN Reason: Shortness Of Breath Or Wheezing Aspirin (Aspirin 81 Mg Tab.Chew) 81 mg PO DAILY [facility] Last Admin: 09/01/24 09:10 Dose: 81 mg Documented By: LUCAS Atorvastatin Calcium (Atorvastatin Calcium 40 Mg Tablet) 40 mg PO BEDTIME [facility] Last Admin: 09/01/24 20:32 Dose: 40 mg Documented By: SHAHRZAD Calcium Carbonate (Calcium Carbonate 750 Mg Tab.Chew) 750 mg PO Q4H PRN PRN Reason: Heartburn Enoxaparin Sodium (Enoxaparin Sodium 40 Mg/0.4 Ml Syringe) 40 mg SUBCUT Q24H [facility] Last Admin: 09/01/24 09:11 Dose: 40 mg Documented By: LUCAS Ergocalciferol (Ergocalciferol (Vitamin D2) 1,250 Mcg Capsule) 1,250 mcg PO Q14D [facility] Last Admin: 08/31/24 14:02 Dose: 1,250 mcg Documented By: CHARLES Hydroxyzine HCl (Hydroxyzine Hcl 10 Mg Tablet) 10 mg PO Q6H PRN PRN Reason: anxiety/restlessness Last Admin: 09/01/24 22:54 Dose: 10 mg Documented By: SHAHRZAD Lactated Ringer's (Lr) 1,000 mls @ 150 mls/hr IVCONT .Q6H40M [facility] Last Admin: 09/02/24 01:14 Dose: Not Given Documented By: SHAHRZAD Non-Admin Reason: Physician Held Med Levothyroxine Sodium (Levothyroxine Sodium 88 Mcg Tablet) 88 mcg PO DAILY@0600 [facility] Last Admin: 09/02/24 05:06 Dose: 88 mcg Documented By: SHAHRZAD Magnesium Hydroxide (Milk Of Magnesia 30 Ml Oral.Susp) 30 ml PO DAILY PRN PRN Reason: Constipation Melatonin (Melatonin 3 Mg Tablet) 6 mg PO BEDTIME PRN PRN Reason: Insomnia Last Admin: 09/01/24 22:54 Dose: 6 mg Documented By: SHAHRZAD Metoprolol Tartrate (Metoprolol Tartrate 25 Mg Tablet) 25 mg PO BID [facility]; Protocol Last Admin: 09/01/24 20:32 Dose: 25 mg Documented By: SHAHRZAD Nicotine (Nicotine 14 Mg Patch.Td24) 14 mg TRANSDERMA DAILY [facility] Last Admin: 09/01/24 09:10 Dose: 14 mg Documented By: LUCAS Nicotine Polacrilex (Nicotine Polacrilex 2 Mg Gum) 2 mg BUCCAL Q2H PRN PRN Reason: Nicotine Cravings Nitroglycerin (Nitroglycerin 0.4 Mg Tab.Subl) 0.4 mg SUBLINGUAL Q5MX3 PRN PRN Reason: Chest Pain Ondansetron HCl (Ondansetron Hcl 4 Mg/2 Ml Vial) 4 mg IVPUSH Q8H PRN PRN Reason: Nausea and Vomiting Pharmacy Consult (Consult Rx Etoh Phenob Im/Po) 1 each MISCELLANE ONCE PRN; Protocol PRN Reason: Consult order Phenobarbital (Phenobarbital 15 Mg Tablet) 15 mg PO BID [facility] Stop: 09/02/24 21:01 Last Admin: 09/01/24 20:32 Dose: 15 mg Documented By: SHAHRZAD Phenobarbital (Phenobarbital 15 Mg Tablet) 15 mg PO DAILY [facility] Stop: 09/04/24 09:01 Sodium Chloride (0.9 % Sodium Chloride Flush 3 Ml Syringe) 3 ml IVFLUSH QSHIFT [facility] Last Admin: 09/01/24 22:55 Dose: 3 ml Documented By: SHAHRZAD Labs 09/01/24 07:20 09/01/24 07:20 Labs: Laboratory Results - last 24 hr 09/01/24 09/01/24 07:20 17:34 MCV 107.3 H MCH 34.3 H MCHC 32.0 RDW 14.0 Plt Count 173 MPV 9.9 Immature Gran % (Auto) 0.4 Neut % (Auto) 53.3 Lymph % (Auto) 15.7 L Hopkins % (Auto) 29.0 H Eos % (Auto) 1.2 Baso % (Auto) 0.4 Lymph # (Auto) 1.1 L Hopkins # (Auto) 1.9 H Eos # (Auto) 0.1 Baso # (Auto) 0.0 Abs Immat Gran (auto) 0.03 Absolute Neuts (auto) 3.6 Absolute Nucleated RBC 0.000 Nucleated RBC % (auto) 0.0 Smear Tech's Comments VERIFIED Anion Gap 11 L Estim Creat Clear Calc 68.8 Estimated GFR > 60 Random Glucose 81 Calcium 9.0 Total Bilirubin 0.3 AST 19 ALT 11 Alkaline Phosphatase 55 B-Natriuretic Peptide 654 H Total Protein 5.0 L Albumin 2.6 L Assessment and Plan (1) Non-ST elevation VT (NSTEMI): Status: Acute (2) Weight loss: Status: Acute (3) Malnutrition: Status: Acute (4) Alcohol use disorder: Status: Acute Plan 74/F with HTN, hypothyroidism, chronic alcohol dependency, here with diarrhea weight loss and found to have NSTEMI NSTEMI, inf wall changes on ECG Troponin 600-->500 medical management with ASA, stattin, BB, completed IV heparin for 48 echocardiogram no WMA, ef > 70% cardiology advises medical management at this time No sings of heart failure despite elevated BNP Hypotension, ? related to diarrhea, decrease oral intake no new murmur resolved with IvF, BP now on high Suspecte acute diastolic heart failure IV Lasix 20 monitor I/O, electrolyes alcohol use disorder, high risk for withdrawal, drinks 1 pint of liquor/day continue phenobarbital maryam, CiWA, folic acid and thiamine Diarrhea, unintentional weight loss since december last year mild protein calory malnutrition, supplement no more diarrhea, lactose controlled diet last colonoscopy in 2012, no f/u non contrast CT of Abd/pelv No acute finding seen by GI, colonoscopy in the future when medically stable HypOkalemia, hypomagnesemia d/t chronic alcohol use replaced and corrected HTN hold Norvasc continue Metoprolol-new Tobacco use disorder NRT Hypothyroidism continue leveothyroxine, TSH 0.03, FT4 1.37 DVT prophylaxis: Lovenox Full code need for inpatient: treatment of acute [place] Quality Stroke Does the patient have a stroke diagnosis?: No VTE Prior VTE?: No VTE Risk Level:: Medical - moderate - high VTE Device Contraindication: Treatment Not Indicated VTE Drug Contraindication: N/A - Med Ordered
[2024-09-02 09:35] LABS: Anion Gap 8 (12-20); Blood Urea Nitrogen 11 mg/dL (9-16); Calcium 9.3 mg/dL (8.4-10.2); Carbon Dioxide 32 mmol/L (22-29); Chloride 102 mmol/L (96-108); Estimated Glomerular Filt Rate > 60; Glucose Random 74 mg/dL (60-115); Sodium 138 mmol/L (135-145)
[2024-09-02] MEDS: Metoprolol Tartrate 25 MG TABLET PO ×2 (09:51→20:18)
[2024-09-02] MEDS: Furosemide 20 MG/2 ML VIAL IVPUSH (09:51)
[2024-09-02] MEDS: PHENobarbitaL 15 MG TABLET PO ×2 (09:51→20:18)
[2024-09-02] MEDS: 0.9 % Sodium Chloride Flush 3 ML SYRINGE IVFLUSH ×3 (09:51→20:22)
[2024-09-02] MEDS: Aspirin 81 MG TAB.CHEW PO (09:51)
[2024-09-02] MEDS: Enoxaparin Sodium 40 MG/0.4 ML SYRINGE SUBCUT (09:51)
[2024-09-02] MEDS: Nicotine 14 MG PATCH.TD24 TRANSDERMA (09:52)
[2024-09-02] MEDS: Atorvastatin Calcium 40 MG TABLET PO (20:22)
[2024-09-02] MEDS: Melatonin 3 MG TABLET 6 MG PO (21:47)
--- NOTE | 2024-09-02 22:03 | PC.NURSE ---
Addendum entered by Letty Hines RN 09/03/24 01:27: MD advised speech therapy consult. Order placed as advised. Original Note: Assumed care of this patient at 19:00. Pt is A&Ox4, on CIWA. Pt reports last drink was Tuesday . Per handoff report received from off-going RN,there was concern that this patient choked on her food earlier this morning. Service Planner performed at nursing bedside swallow eval which the pt passed without issue. Out of caution, crushable medications were administered crushed in applesauce. The pt tolerated this without issue as well. Service Planner returned a called pt's daughter Rowan for an update as per her request. During this call Rowan reported the patient wears upper and lower dentures though she often does not wear them as they are ill-fitting since she lost weight . Service Planner discussed option to contact provider to request a change to a more appropriate diet (ie- dental soft vs ground diet) which Rowan expressed appreciation of. Service Planner notified covering Dr. Alexander Rey of the above situation, requested diet order change and/or ST consult. Awaiting orders at this time. Plan of care continues.
[2024-09-02] MEDS: hydrOXYzine HCL 10 MG TABLET PO (23:36)
[2024-09-03] VITALS (9 sets, daily range): BP systolic 109–148; BP diastolic 56–70; PULSE 67–83; RESP 15–18; TEMP 36.2–36.7; O2SAT 93–97
[2024-09-03] MEDS: Levothyroxine Sodium 88 MCG TABLET PO (06:22)
[2024-09-03 07:52] LABS: White Blood Count 6.7 X10*3/uL (4.8-10.8)
[2024-09-03 07:53] LABS: Hematocrit 37.2 % (37.0-47.0); Hemoglobin 11.9 g/dl (12.0-16.0); Mean Corpuscular Hemoglobin 33.9 pg (27.0-33.0); Mean Platelet Volume 9.2 fL (9.4-12.3); Platelet Count 239 X10*3/uL (160-400); Red Blood Count 3.51 X10*6/uL (4.20-5.50); Red Cell Distribution Width 13.6 % (11.0-16.0)
[2024-09-03 09:04] LABS: Adenovirus F 40/41 Not Detected (Not Detect.); Astrovirus Not Detected (Not Detect.); Campylobacter Not Detected (Not Detect.); Cryptosporidium Not Detected (Not Detect.); Cyclospora cayetanensis Not Detected (Not Detect.); E. coli EAEC Not Detected (Not Detect.); E. coli EPEC Not Detected (Not Detect.); E. coli ETEC Not Detected (Not Detect.); E. coli STEC Not Detected (Not Detect.); Entamoeba histolytica Not Detected (Not Detect.); Giardia lamblia Not Detected (Not Detect.); Norovirus GI/GII Not Detected (Not Detect.); Plesiomonas shigelloides Not Detected (Not Detect.); Rotavirus A Not Detected (Not Detect.); Salmonella Not Detected (Not Detect.); Sapovirus Not Detected (Not Detect.); Shigella sp./EIEC Not Detected (Not Detect.); Vibrio Not Detected (Not Detect.); Vibrio Cholerae Not Detected (Not Detect.); Yersinia enterocolitica Not Detected (Not Detect.)
--- NOTE | 2024-09-03 09:12 | HO.PM.IMPN ---
Subjective Subjective Date of Service: 09/03/24 Interval History: Patient is reporting feeling better, remains on O2, no distress Review of Systems Gen: no fever Resp: + sob, no cough CV: no chest, no LOUISE, no leg edema GI: No n/v, no abd pain, + diarrhea Neuro: No confusion Physical Exam Vital Signs: Vital Signs: Last Vital Signs Temp 97.6 F 09/03/24 07:13 Pulse 81 09/03/24 07:13 Resp 16 09/03/24 07:13 BP 148/66 H 09/03/24 07:13 Pulse Ox 97 09/03/24 07:13 O2 Del Method Oxymask 09/03/24 07:13 O2 Flow Rate 5 09/03/24 07:13 BMI result Body Mass Index 18.6 Const: Other: General: AO X 3, no acute distress, looks malnurished Resp: CTA bilateral CVS: S1,S2,RRR GI: +BS, NT, no distention Skin: No rash Neuro: motor grossly intact, no tremors Psych: appropriate affect Objective Data Active Medications Acetaminophen (Acetaminophen 325 Mg Tablet) 650 mg PO Q6H PRN PRN Reason: Pain, Mild 1-3,fever,headache Last Admin: 09/02/24 23:36 Dose: 650 mg Documented By: CLARICE Albuterol Sulfate (Albuterol Sulfate 90 Mcg 8 Gm Inhaler) 2 puff INHALE Q4H PRN PRN Reason: Shortness Of Breath Or Wheezing Albuterol/Ipratropium (Albuterol/Iprat 2.5/0.5mg 3 Ml Ampul.Neb) 3 ml INHALE RQ4H WHILE AWAKE PRN PRN Reason: Shortness of Breath Aspirin (Aspirin 81 Mg Tab.Chew) 81 mg PO DAILY [facility] Last Admin: 09/02/24 09:51 Dose: 81 mg Documented By: NINI Atorvastatin Calcium (Atorvastatin Calcium 40 Mg Tablet) 40 mg PO BEDTIME [facility] Last Admin: 09/02/24 20:22 Dose: 40 mg Documented By: CLARICE Calcium Carbonate (Calcium Carbonate 750 Mg Tab.Chew) 750 mg PO Q4H PRN PRN Reason: Heartburn Enoxaparin Sodium (Enoxaparin Sodium 40 Mg/0.4 Ml Syringe) 40 mg SUBCUT Q24H [facility] Last Admin: 09/02/24 09:51 Dose: 40 mg Documented By: NINI Ergocalciferol (Ergocalciferol (Vitamin D2) 1,250 Mcg Capsule) 1,250 mcg PO Q14D [facility] Last Admin: 08/31/24 14:02 Dose: 1,250 mcg Documented By: CHARLES Furosemide (Furosemide 20 Mg/2 Ml Vial) 20 mg IVPUSH DAILY [facility]; Protocol Last Admin: 09/02/24 09:51 Dose: 20 mg Documented By: NINI Hydroxyzine HCl (Hydroxyzine Hcl 10 Mg Tablet) 10 mg PO Q6H PRN PRN Reason: anxiety/restlessness Last Admin: 09/02/24 23:36 Dose: 10 mg Documented By: CLARICE Levothyroxine Sodium (Levothyroxine Sodium 88 Mcg Tablet) 88 mcg PO DAILY@0600 [facility] Last Admin: 09/03/24 06:22 Dose: 88 mcg Documented By: CLARICE Magnesium Hydroxide (Milk Of Magnesia 30 Ml Oral.Susp) 30 ml PO DAILY PRN PRN Reason: Constipation Melatonin (Melatonin 3 Mg Tablet) 6 mg PO BEDTIME PRN PRN Reason: Insomnia Last Admin: 09/02/24 21:47 Dose: 6 mg Documented By: CLARICE Metoprolol Tartrate (Metoprolol Tartrate 25 Mg Tablet) 25 mg PO BID [facility]; Protocol Last Admin: 09/02/24 20:18 Dose: 25 mg Documented By: CLARICE Nicotine (Nicotine 14 Mg Patch.Td24) 14 mg TRANSDERMA DAILY [facility] Last Admin: 09/02/24 09:52 Dose: 14 mg Documented By: NINI Nicotine Polacrilex (Nicotine Polacrilex 2 Mg Gum) 2 mg BUCCAL Q2H PRN PRN Reason: Nicotine Cravings Nitroglycerin (Nitroglycerin 0.4 Mg Tab.Subl) 0.4 mg SUBLINGUAL Q5MX3 PRN PRN Reason: Chest Pain Ondansetron HCl (Ondansetron Hcl 4 Mg/2 Ml Vial) 4 mg IVPUSH Q8H PRN PRN Reason: Nausea and Vomiting Pharmacy Consult (Consult Rx Etoh Phenob Im/Po) 1 each MISCELLANE ONCE PRN; Protocol PRN Reason: Consult order Phenobarbital (Phenobarbital 15 Mg Tablet) 15 mg PO DAILY [facility] Stop: 09/04/24 09:01 Sodium Chloride (0.9 % Sodium Chloride Flush 3 Ml Syringe) 3 ml IVFLUSH QSHIFT [facility] Last Admin: 09/02/24 20:22 Dose: 3 ml Documented By: CLARICE Labs 09/03/24 07:21 09/02/24 08:40 Labs: Laboratory Results - last 24 hr 09/02/24 09/03/24 08:40 07:21 MCV 106.0 H MCH 33.9 H MCHC 32.0 RDW 13.6 Plt Count 239 D MPV 9.2 L Absolute Nucleated RBC 0.000 Nucleated RBC % (auto) 0.0 Anion Gap 8 L Estim Creat Clear Calc 66.0 Estimated GFR > 60 Random Glucose 74 Calcium 9.3 Assessment and Plan (1) Non-ST elevation [place] (NSTEMI): Status: Acute (2) Weight loss: Status: Acute (3) Malnutrition: Status: Acute (4) Alcohol use disorder: Status: Acute Plan 74/F with HTN, hypothyroidism, chronic alcohol dependency, here with diarrhea weight loss and found to have NSTEMI NSTEMI, inf wall changes on ECG Troponin 600-->500 medical management with ASA, stattin, BB, completed IV heparin for 48 echocardiogram no WMA, ef > 70% cardiology advises medical management at this time No sings of heart failure despite elevated BNP Hypotension, ? related to diarrhea, decrease oral intake no new murmur resolved with IvF, BP now on high Suspecte acute diastolic heart failure IV Lasix 20 monitor I/O, electrolyes alcohol use disorder, high risk for withdrawal, drinks 1 pint of liquor/day continue phenobarbital maryam, CiWA, folic acid and thiamine Diarrhea, unintentional weight loss since december last year mild protein calory malnutrition, supplement no more diarrhea, lactose controlled diet last colonoscopy in 2012, no f/u non contrast CT of Abd/pelv No acute finding seen by GI, colonoscopy in the future when medically stable HypOkalemia, hypomagnesemia d/t chronic alcohol use replaced and corrected HTN hold Norvasc continue Metoprolol-new Tobacco use disorder NRT Hypothyroidism continue leveothyroxine, TSH 0.03, FT4 1.37 DVT prophylaxis: Lovenox Full code need for inpatient: treatment of acute [place] Quality Stroke Does the patient have a stroke diagnosis?: No VTE Prior VTE?: No VTE Risk Level:: Medical - moderate - high VTE Device Contraindication: Treatment Not Indicated VTE Drug Contraindication: N/A - Med Ordered
[2024-09-03] MEDS: Furosemide 20 MG/2 ML VIAL IVPUSH (09:45)
[2024-09-03] MEDS: 0.9 % Sodium Chloride Flush 3 ML SYRINGE IVFLUSH ×3 (09:45→21:22)
[2024-09-03] MEDS: Nicotine 14 MG PATCH.TD24 TRANSDERMA (09:46)
[2024-09-03] MEDS: Folic Acid 1 MG TABLET PO (09:46)
[2024-09-03] MEDS: Metoprolol Tartrate 25 MG TABLET PO ×2 (09:46→21:21)
[2024-09-03] MEDS: Thiamine HCL 100 MG TABLET PO (09:46)
[2024-09-03] MEDS: Aspirin 81 MG TAB.CHEW PO (09:46)
[2024-09-03] MEDS: PHENobarbitaL 15 MG TABLET PO (09:46)
[2024-09-03] MEDS: Enoxaparin Sodium 40 MG/0.4 ML SYRINGE SUBCUT (09:46)
[2024-09-03] MEDS: Acetaminophen 325 MG TABLET 650 MG PO ×2 (10:00→17:19)
--- NOTE | 2024-09-03 13:27 | MHC.CLN ---
F/U PT IS MODERATELY MALNOURISHED PO INTAKE 50-75% DIET RX: LACTOSE CONTROLLED RECEIVING ENSURE BID TO INCREASE KCALS SUPP PROVIDES 700KCALS, 40G PROTEIN (SUPP IS SUITABLE FOR LACTOSE INTOLERANCE) CONTINUE TO MONITOR PO INTAKE AND ENCOURAGE SUPPLEMENTS
--- NOTE | 2024-09-03 13:40 | MHC.CM.PN ---
Patient states that she would like to go to [facility] for rehab. She has been there in the past. Clinical information has been sent to the Acute Rehab. STR referrals have also been updated. CIWA is zero. Patient continues on the Phenobarb protocol. [facility] via [facility] once medically cleared.
--- NOTE | 2024-09-03 16:24 | MHC.SL.SWA ---
Speech Pathologist Impression: Mild oropharyngeal dysphagia Risk of Aspiration Due to: CIWA Weakness Absence of dentures Dysphasia Diet Status: Liquid Consistency and Strategies for Safe Swallow: Liquid Intake Recommendation: Thin Liquid Intake Strategies: Solid Food Consistency: Dietary Recommendations: Pureed (NDD1) Additional Modifications to Solid Foods: Oral Medication Intake: Crushed with Puree Please contact the pharmacy regarding appropriate crushable or liquid drug formulations that are available whenever modified delivery is recommended. Compensatory Strategies and Precautions to be Taken for Safe Swallow: Supervision While Eating and Drinking for Safe Swallow: Direct Supervision (1:1) Foods to Avoid: Swallowing Recommended Treatments: Recommendation for Speech: Inpatient Speech Therapy Comment: Pt presents with mild facial weakness/flat affect and slowed coordination of lips, tongue and jaw. Pt reported she has dentures but cannot wear them as they are too loose. RN consulted, reported pt was on regular diet that was downgraded to mechanical chopped as pt sister expressed worry that pt was unable to chew. Pt tolerated trials of thins and purees; pt in agreement with diet downgrade to reduce risk for aspiration. MD notified by secure text, TRAFFIC LINE PAINTER reviewed recc with speech language pathologist prn and RN. Frequency/Duration: Daily M-F Date Range for Service Req: Timeline to reassess: Registry Np Clinican/Clinical Fellow: No Supervisory Statement: I have reviewed and agree with the student/clinical fellow's documentation: N/A Speech Language Pathologist: Chanelle Ponce M.S., [facility]-TRAFFIC LINE PAINTER
[2024-09-03] MEDS: hydrOXYzine HCL 10 MG TABLET PO (21:21)
[2024-09-03] MEDS: Melatonin 3 MG TABLET 6 MG PO (21:21)
[2024-09-03] MEDS: Atorvastatin Calcium 40 MG TABLET PO (21:21)
[2024-09-04] VITALS (7 sets, daily range): BP systolic 104–147; BP diastolic 57–65; PULSE 76–92; RESP 16–20; TEMP 36.3–36.9; O2SAT 94–96
--- NOTE | 2024-09-04 | ECG_ITS ---
Test Reason : chest pain Blood Pressure : */* mmHG Vent. Rate : 86 BPM Atrial Rate : 86 BPM P-R Int : 122 ms QRS Dur : 122 ms QT Int : 366 ms P-R-T Axes : 78 81 26 degrees QTcB Int : 437 ms Poor data quality Normal sinus rhythm Right bundle branch block Abnormal ECG When compared with ECG of 30-Aug-2024 09:33, Premature atrial complexes are no longer Present Referred By: Teresita Kern Electronically Signed By: ARSALAN GOODRICH MD
[2024-09-04] MEDS: Acetaminophen 325 MG TABLET 650 MG PO ×2 (04:05→11:06)
[2024-09-04] MEDS: hydrOXYzine HCL 10 MG TABLET PO ×3 (04:06→22:52)
[2024-09-04] MEDS: Levothyroxine Sodium 88 MCG TABLET PO (04:06)
--- NOTE | 2024-09-04 04:46 | PC.NURSE ---
At 0410 pt. rang call walden to go to the bathroom, at that time pt. stated she has left sided chest pain, dull, nonradiating and states worse with breathing 5/10. Pt. states pain started at about 3am but did not notify anyone. Pt. states has not slept and anxious; Dr. Kern notified via [place] text; Gave her prn vistaril and tylenol for back pain as well. 5L oxymask sat's 94% w/ LOUISE. 147/65 hr 79 SR. 12 lead EKG obtined and sent to Dr. Kern.
[2024-09-04] MEDS: Nitroglycerin 0.4 MG TAB.SUBL SUBLINGUAL (04:50)
[2024-09-04] MEDS: Metoprolol Tartrate 25 MG TABLET PO ×2 (08:42→20:45)
[2024-09-04] MEDS: Furosemide 20 MG/2 ML VIAL IVPUSH (08:42)
[2024-09-04] MEDS: Thiamine HCL 100 MG TABLET PO (08:42)
[2024-09-04] MEDS: Folic Acid 1 MG TABLET PO (08:42)
[2024-09-04] MEDS: Aspirin 81 MG TAB.CHEW PO (08:42)
[2024-09-04] MEDS: Enoxaparin Sodium 40 MG/0.4 ML SYRINGE SUBCUT (08:42)
[2024-09-04] MEDS: Nicotine 14 MG PATCH.TD24 TRANSDERMA (08:42)
[2024-09-04] MEDS: PHENobarbitaL 15 MG TABLET PO (08:42)
[2024-09-04] MEDS: 0.9 % Sodium Chloride Flush 3 ML SYRINGE IVFLUSH ×2 (08:43→15:00)
[2024-09-04] MEDS: Milk of Magnesia 30 ML ORAL.SUSP PO (09:04)
--- NOTE | 2024-09-04 12:57 | P.PNIM_ITS ---
Subjective Subjective Date of Service: 09/04/24 Interval History: Patient is reporting feeling better, remains on O2, no distress Physical Exam 2 Vital Signs: Vital Signs: Last Vital Signs Temp 97.9 F 09/04/24 10:53 Pulse 76 09/04/24 10:53 Resp 20 09/04/24 10:53 BP 104/57 L 09/04/24 10:53 Pulse Ox 94 09/04/24 10:53 O2 Del Method Nasal Cannula 09/04/24 10:53 O2 Flow Rate 4 09/04/24 10:53 BMI result Body Mass Index 18.6 Const: Other: General: AO X 3, no acute distress, looks malnurished Resp: CTA bilateral CVS: S1,S2,RRR GI: +BS, NT, no distention Skin: No rash Neuro: motor grossly intact, no tremors Psych: appropriate affect Objective Data Active Medications Acetaminophen (Acetaminophen 325 Mg Tablet) 650 mg PO Q6H PRN PRN Reason: Pain, Mild 1-3,fever,headache Last Admin: 09/04/24 11:06 Dose: 650 mg Documented By: NINI Albuterol Sulfate (Albuterol Sulfate 90 Mcg 8 Gm Inhaler) 2 puff INHALE Q4H PRN PRN Reason: Shortness Of Breath Or Wheezing Albuterol/Ipratropium (Albuterol/Iprat 2.5/0.5mg 3 Ml Ampul.Neb) 3 ml INHALE RQ4H WHILE AWAKE PRN PRN Reason: Shortness of Breath Aspirin (Aspirin 81 Mg Tab.Chew) 81 mg PO DAILY [facility] Last Admin: 09/04/24 08:42 Dose: 81 mg Documented By: NINI Atorvastatin Calcium (Atorvastatin Calcium 40 Mg Tablet) 40 mg PO BEDTIME [facility] Last Admin: 09/03/24 21:21 Dose: 40 mg Documented By: SAMMY Calcium Carbonate (Calcium Carbonate 750 Mg Tab.Chew) 750 mg PO Q4H PRN PRN Reason: Heartburn Enoxaparin Sodium (Enoxaparin Sodium 40 Mg/0.4 Ml Syringe) 40 mg SUBCUT Q24H [facility] Last Admin: 09/04/24 08:42 Dose: 40 mg Documented By: NINI Ergocalciferol (Ergocalciferol (Vitamin D2) 1,250 Mcg Capsule) 1,250 mcg PO Q14D [facility] Last Admin: 08/31/24 14:02 Dose: 1,250 mcg Documented By: CHARLES Folic Acid (Folic Acid 1 Mg Tablet) 1 mg PO DAILY [facility] Stop: 09/05/24 09:01 Last Admin: 09/04/24 08:42 Dose: 1 mg Documented By: NINI Furosemide (Furosemide 20 Mg/2 Ml Vial) 20 mg IVPUSH DAILY [facility]; Protocol Last Admin: 09/04/24 08:42 Dose: 20 mg Documented By: NINI Hydroxyzine HCl (Hydroxyzine Hcl 10 Mg Tablet) 10 mg PO Q6H PRN PRN Reason: anxiety/restlessness Last Admin: 09/04/24 04:06 Dose: 10 mg Documented By: SAMMY Levothyroxine Sodium (Levothyroxine Sodium 88 Mcg Tablet) 88 mcg PO DAILY@0600 [facility] Last Admin: 09/04/24 04:06 Dose: 88 mcg Documented By: SAMMY Comments: per pt. request d/t don't want to be woken up if I finally fall asleep. Magnesium Hydroxide (Milk Of Magnesia 30 Ml Oral.Susp) 30 ml PO DAILY PRN PRN Reason: Constipation Last Admin: 09/04/24 09:04 Dose: 30 ml Documented By: NINI Melatonin (Melatonin 3 Mg Tablet) 6 mg PO BEDTIME PRN PRN Reason: Insomnia Last Admin: 09/03/24 21:21 Dose: 6 mg Documented By: SAMMY Metoprolol Tartrate (Metoprolol Tartrate 25 Mg Tablet) 25 mg PO BID [facility]; Protocol Last Admin: 09/04/24 08:42 Dose: 25 mg Documented By: NINI Nicotine (Nicotine 14 Mg Patch.Td24) 14 mg TRANSDERMA DAILY [facility] Last Admin: 09/04/24 08:42 Dose: 14 mg Documented By: NINI Nicotine Polacrilex (Nicotine Polacrilex 2 Mg Gum) 2 mg BUCCAL Q2H PRN PRN Reason: Nicotine Cravings Nitroglycerin (Nitroglycerin 0.4 Mg Tab.Subl) 0.4 mg SUBLINGUAL Q5MX3 PRN PRN Reason: Chest Pain Last Admin: 09/04/24 04:50 Dose: 0.4 mg Documented By: SAMMY Ondansetron HCl (Ondansetron Hcl 4 Mg/2 Ml Vial) 4 mg IVPUSH Q8H PRN PRN Reason: Nausea and Vomiting Pharmacy Consult (Consult Rx Etoh Phenob Im/Po) 1 each MISCELLANE ONCE [facility]; Protocol PRN Reason: Consult order Sodium Chloride (0.9 % Sodium Chloride Flush 3 Ml Syringe) 3 ml IVFLUSH QSHIFT [facility] Last Admin: 09/04/24 08:43 Dose: 3 ml Documented By: NINI Thiamine HCl (Thiamine Hcl 100 Mg Tablet) 100 mg PO DAILY [facility] Stop: 09/12/24 09:01 Last Admin: 09/04/24 08:42 Dose: 100 mg Documented By: NINI Labs 09/03/24 07:21 09/02/24 08:40 Assessment and Plan (1) Non-ST elevation ID (NSTEMI): Status: Acute (2) Weight loss: Status: Acute (3) Malnutrition: Status: Acute (4) Alcohol use disorder: Status: Acute Plan 74F PMH HTN, hypothyroidism, chronic alcohol dependency, here with diarrhea weight loss and found to have NSTEMI NSTEMI, inf wall changes on ECG Troponin 600-->500 medical management with ASA, stattin, BB, completed IV heparin for 48 echocardiogram no WMA, ef > 70% cardiology advises medical management at this time Hypotension, ? related to diarrhea, decrease oral intake no new murmur resolved with IvF, BP now on high acute hypoxic resp failure due to acute diastolic heart failure and copd undiagnosed IV Lasix 20 monitor I/O, electrolyes check ct chest alcohol use disorder, high risk for withdrawal, drinks 1 pint of liquor/day continue phenobarbital maryam, CiWA, folic acid and thiamine Diarrhea, unintentional weight loss since december last year mild protein calory malnutrition, supplement no more diarrhea, lactose controlled diet last colonoscopy in 2012, no f/u non contrast CT of Abd/pelv No acute finding seen by GI, colonoscopy in the future when medically stable HypOkalemia, hypomagnesemia d/t chronic alcohol use replaced and corrected HTN hold Norvasc continue Metoprolol-new Tobacco use disorder NRT Hypothyroidism continue leveothyroxine, TSH 0.03, FT4 1.37 DVT prophylaxis: Lovenox Full code need for inpatient: hpyoxia Quality Stroke Does the patient have a stroke diagnosis?: No VTE Prior VTE?: No VTE Risk Level:: Medical - moderate - high VTE Device Contraindication: Treatment Not Indicated VTE Drug Contraindication: N/A - Med Ordered
--- NOTE | 2024-09-04 13:39 | MHC.SL.SWA ---
Dysphasia Diet Status: No change Liquid Consistency and Strategies for Safe Swallow: Liquid Intake Recommendation: Thin Liquid Intake Strategies: Small Sips Solid Food Consistency: Dietary Recommendations: NDD2 Oral Medication Intake: Crushed with Puree Please contact the pharmacy regarding appropriate crushable or liquid drug formulations that are available whenever modified delivery is recommended. Compensatory Strategies and Precautions to be Taken for Safe Swallow: Sitting Upright (90 deg) Small Bites and Sips Alternate Liquids/Solids Supervision While Eating and Drinking for Safe Swallow: Direct Supervision (1:1) Recommendation for Speech: Inpatient Speech Therapy Comment: Recommend continue w/ GROUND SOLIDS (NDD2) and THIN liquids w/ pills CRUSHED in PUREE. Pt requires DIRECT SUPERVISION to cue strategies to reduce risk of aspiration and assist w/ O2. Frequency/Duration: Daily M-F [facility] Supervisor Clinican/Clinical Fellow: No Supervisory Statement: I have reviewed and agree with the student/clinical fellow's documentation: N/A Speech Language Pathologist: Anat Dalal M.A., CCC-MAJOR ACCOUNT MANAGER
[2024-09-04] MEDS: Atorvastatin Calcium 40 MG TABLET PO (20:45)
[2024-09-04] MEDS: Melatonin 3 MG TABLET 6 MG PO (22:52)
[2024-09-05] VITALS (9 sets, daily range): BP systolic 97–139; BP diastolic 42–60; PULSE 74–94; RESP 16–28; TEMP 36.2–37.5; O2SAT 85–100
[2024-09-05] MEDS: Acetaminophen 325 MG TABLET 650 MG PO ×3 (02:03→16:27)
[2024-09-05] MEDS: Levothyroxine Sodium 88 MCG TABLET PO (06:40)
[2024-09-05 07:55] LABS: Hemoglobin 11.3 g/dl (12.0-16.0); Mean Corpuscular HGB Conc 33.2 g/dl (31.0-35.0); Mean Corpuscular Hemoglobin 34.2 pg (27.0-33.0); Platelet Count 265 X10*3/uL (160-400); Red Cell Distribution Width 13.4 % (11.0-16.0); White Blood Count 6.2 X10*3/uL (4.8-10.8)
[2024-09-05 08:13] LABS: Anion Gap 11 (12-20); Blood Urea Nitrogen 13 mg/dL (9-16); Calcium 9.6 mg/dL (8.4-10.2); Carbon Dioxide 43 mmol/L (22-29); Chloride 88 mmol/L (96-108); Creatinine Clr Calc Pharmacy 63.6; Estimated Glomerular Filt Rate > 60; Glucose Random 82 mg/dL (60-115); Magnesium 1.7 mg/dL (1.6-2.6); Potassium 4.5 mmol/L (3.3-5.1); Sodium 137 mmol/L (135-145)
[2024-09-05] MEDS: Furosemide 20 MG/2 ML VIAL IVPUSH (09:22)
[2024-09-05] MEDS: cefTRIAXone sodium 1 GM VIAL IVPUSH (09:25)
[2024-09-05] MEDS: hydrOXYzine HCL 10 MG TABLET PO ×2 (09:25→20:09)
[2024-09-05] MEDS: Enoxaparin Sodium 40 MG/0.4 ML SYRINGE SUBCUT (09:25)
[2024-09-05] MEDS: Folic Acid 1 MG TABLET PO (09:26)
[2024-09-05] MEDS: Nicotine 14 MG PATCH.TD24 TRANSDERMA (09:26)
[2024-09-05] MEDS: Thiamine HCL 100 MG TABLET PO (09:26)
[2024-09-05] MEDS: Aspirin 81 MG TAB.CHEW PO (09:26)
[2024-09-05] MEDS: 0.9 % Sodium Chloride Flush 3 ML SYRINGE IVFLUSH ×2 (09:27→20:12)
[2024-09-05] MEDS: Metoprolol Tartrate 25 MG TABLET PO ×2 (09:27→20:09)
--- NOTE | 2024-09-05 09:40 | HO.PM.IMPN ---
Subjective Subjective Date of Service: 09/05/24 Interval History: sob Physical Exam Vital Signs: Vital Signs: Last Vital Signs Temp 98.9 F 09/05/24 07:14 Pulse 86 09/05/24 07:14 Resp 20 09/05/24 07:14 BP 101/55 L 09/05/24 07:14 Pulse Ox 95 09/05/24 07:14 O2 Del Method Oxymask 09/05/24 07:14 O2 Flow Rate 5 09/05/24 07:14 BMI result Body Mass Index 18.6 Const: Other: General: AO X 3, no acute distress, looks malnurished Resp: diminsihhed bilateral, mild accessory muscles CVS: S1,S2,RRR GI: +BS, NT, no distention Skin: No rash Neuro: motor grossly intact, no tremors Psych: appropriate affect Objective Data Active Medications Acetaminophen (Acetaminophen 325 Mg Tablet) 650 mg PO Q6H PRN PRN Reason: Pain, Mild 1-3,fever,headache Last Admin: 09/05/24 09:24 Dose: 650 mg Documented By: BENITO Albuterol Sulfate (Albuterol Sulfate 90 Mcg 8 Gm Inhaler) 2 puff INHALE Q4H PRN PRN Reason: Shortness Of Breath Or Wheezing Albuterol/Ipratropium (Albuterol/Iprat 2.5/0.5mg 3 Ml Ampul.Neb) 3 ml INHALE RQ4H WHILE AWAKE PRN PRN Reason: Shortness of Breath Aspirin (Aspirin 81 Mg Tab.Chew) 81 mg PO DAILY PENDING SALE TO [facility] Last Admin: 09/05/24 09:26 Dose: 81 mg Documented By: BENITO Atorvastatin Calcium (Atorvastatin Calcium 40 Mg Tablet) 40 mg PO BEDTIME PENDING SALE TO [facility] Last Admin: 09/04/24 20:45 Dose: 40 mg Documented By: SAMMY Calcium Carbonate (Calcium Carbonate 750 Mg Tab.Chew) 750 mg PO Q4H PRN PRN Reason: Heartburn Ceftriaxone Sodium (Ceftriaxone Sodium 1 Gm Vial) 1 gm IVPUSH Q24H PENDING SALE TO [facility] Last Admin: 09/05/24 09:25 Dose: 1 gm Documented By: BENITO Enoxaparin Sodium (Enoxaparin Sodium 40 Mg/0.4 Ml Syringe) 40 mg SUBCUT Q24H PENDING SALE TO [facility] Last Admin: 09/05/24 09:25 Dose: 40 mg Documented By: BENITO Ergocalciferol (Ergocalciferol (Vitamin D2) 1,250 Mcg Capsule) 1,250 mcg PO Q14D PENDING SALE TO [facility] Last Admin: 08/31/24 14:02 Dose: 1,250 mcg Documented By: CHARLES Furosemide (Furosemide 20 Mg/2 Ml Vial) 20 mg IVPUSH DAILY PENDING SALE TO [facility]; Protocol Last Admin: 09/05/24 09:22 Dose: 20 mg Documented By: BENITO Hydroxyzine HCl (Hydroxyzine Hcl 10 Mg Tablet) 10 mg PO Q6H PRN PRN Reason: anxiety/restlessness Last Admin: 09/05/24 09:25 Dose: 10 mg Documented By: BENITO Levothyroxine Sodium (Levothyroxine Sodium 88 Mcg Tablet) 88 mcg PO DAILY@0600 PENDING SALE TO [facility] Last Admin: 09/05/24 06:40 Dose: 88 mcg Documented By: SAMMY Magnesium Hydroxide (Milk Of Magnesia 30 Ml Oral.Susp) 30 ml PO DAILY PRN PRN Reason: Constipation Last Admin: 09/04/24 09:04 Dose: 30 ml Documented By: NINI Melatonin (Melatonin 3 Mg Tablet) 6 mg PO BEDTIME PRN PRN Reason: Insomnia Last Admin: 09/04/24 22:52 Dose: 6 mg Documented By: SAMMY Metoprolol Tartrate (Metoprolol Tartrate 25 Mg Tablet) 25 mg PO BID PENDING SALE TO [facility]; Protocol Last Admin: 09/05/24 09:27 Dose: 25 mg Documented By: BENITO Nicotine (Nicotine 14 Mg Patch.Td24) 14 mg TRANSDERMA DAILY PENDING SALE TO [facility] Last Admin: 09/05/24 09:26 Dose: 14 mg Documented By: BENITO Nicotine Polacrilex (Nicotine Polacrilex 2 Mg Gum) 2 mg BUCCAL Q2H PRN PRN Reason: Nicotine Cravings Nitroglycerin (Nitroglycerin 0.4 Mg Tab.Subl) 0.4 mg SUBLINGUAL Q5MX3 PRN PRN Reason: Chest Pain Last Admin: 09/04/24 04:50 Dose: 0.4 mg Documented By: SAMMY Ondansetron HCl (Ondansetron Hcl 4 Mg/2 Ml Vial) 4 mg IVPUSH Q8H PRN PRN Reason: Nausea and Vomiting Pharmacy Consult (Consult Rx Etoh Phenob Im/Po) 1 each MISCELLANE ONCE PRN; Protocol PRN Reason: Consult order Sodium Chloride (0.9 % Sodium Chloride Flush 3 Ml Syringe) 3 ml IVFLUSH QSHIFT PENDING SALE TO [facility] Last Admin: 09/05/24 09:27 Dose: 3 ml Documented By: BENITO Thiamine HCl (Thiamine Hcl 100 Mg Tablet) 100 mg PO DAILY PENDING SALE TO [facility] Stop: 09/12/24 09:01 Last Admin: 09/05/24 09:26 Dose: 100 mg Documented By: BENITO Labs 09/05/24 07:06 09/05/24 07:06 Labs: Laboratory Results - last 24 hr 09/05/24 07:06 MCV 103.0 H MCH 34.2 H MCHC 33.2 RDW 13.4 Plt Count 265 MPV 9.0 L Absolute Nucleated RBC 0.000 Nucleated RBC % (auto) 0.0 Anion Gap 11 L Estim Creat Clear Calc 63.6 Estimated GFR > 60 Random Glucose 82 Calcium 9.6 Magnesium 1.7 Assessment and Plan (1) Non-ST elevation [place] (NSTEMI): Status: Acute (2) Weight loss: Status: Acute (3) Malnutrition: Status: Acute (4) Alcohol use disorder: Status: Acute Plan 74F PMH HTN, hypothyroidism, chronic alcohol dependency, here with diarrhea weight loss and found to have NSTEMI NSTEMI, inf wall changes on ECG Troponin 600-->500 medical management with ASA, stattin, BB, completed IV heparin for 48 echocardiogram no WMA, ef > 70% cardiology advises medical management at this time Hypotension, ? related to diarrhea, decrease oral intake no new murmur resolved with IvF, acute hypoxic resp failure due to acute diastolic heart failure and copd undiagnosed and pneumonia diuresed well, will give one more dose of diamox, then hold off on further diuretics for now started on rocephin and azithro wean o2 as tolerated, currently on 5L saturating 92% alcohol use disorder, high risk for withdrawal, drinks 1 pint of liquor/day s/p phenobarbital taper continue folic acid and thiamine Diarrhea, unintentional weight loss since december last year mild protein calory malnutrition, supplement no more diarrhea, lactose controlled diet last colonoscopy in 2012, no f/u non contrast CT of Abd/pelv No acute finding seen by GI, colonoscopy in the future when medically stable HypOkalemia, hypomagnesemia d/t chronic alcohol use replaced and corrected HTN hold Norvasc continue Metoprolol-new Tobacco use disorder NRT Hypothyroidism continue leveothyroxine, TSH 0.03, FT4 1.37 DVT prophylaxis: Lovenox Full code need for inpatient: hpyoxia Quality Stroke Does the patient have a stroke diagnosis?: No VTE Prior VTE?: No VTE Risk Level:: Medical - moderate - high VTE Device Contraindication: Treatment Not Indicated VTE Drug Contraindication: N/A - Med Ordered
[2024-09-05] MEDS: Azithromycin 500 MG TABLET PO (11:49)
[2024-09-05] MEDS: acetaZOLAMIDE sodium 500 MG VIAL IVPUSH (11:49)
--- NOTE | 2024-09-05 12:50 | MHC.CLN ---
F/U PT IS MODERATELY MALNOURISHED PO INTAKE REMAINS 50-75% DIET RX: LACTOSE CONTROLLED GRD M/S-APPROPRIATE RECEIVING ENSURE BID TO INCREASE KCALS SUPP PROVIDES 700KCALS, 40G PROTEIN (SUPP IS SUITABLE FOR LACTOSE INTOLERANCE) CONTINUE TO MONITOR PO INTAKE AND ENCOURAGE SUPPLEMENTS
--- NOTE | 2024-09-05 15:03 | MHC.SL.SWA ---
Speech Pathologist Impression: Mild oropharyngeal dysphagia Risk of Aspiration Due to: Dysphasia Diet Status: Recommend continue w/ GROUND SOLIDS (NDD2) and THIN liquids w/ pills CRUSHED in PUREE. Pt requires intermittent supervision to cue strategies to reduce risk of aspiration and assist w/ O2. Liquid Consistency and Strategies for Safe Swallow: Liquid Intake Recommendation: Thin Liquid Intake Strategies: Small Sips Solid Food Consistency: Dietary Recommendations: Pureed (NDD1) Additional Modifications to Solid Foods: Oral Medication Intake: Crushed with Puree Please contact the pharmacy regarding appropriate crushable or liquid drug formulations that are available whenever modified delivery is recommended. Compensatory Strategies and Precautions to be Taken for Safe Swallow: Sitting Upright (90 deg) Small Bites and Sips Alternate Liquids/Solids Supervision While Eating and Drinking for Safe Swallow: Intermittent Supervision (1:1) Foods to Avoid: Swallowing Recommended Treatments: Recommendation for Speech: Inpatient Speech Therapy Comment: Pt seen for dysphagia treatment at lunch. Pt sitting upright in recliner, self feeding with moderate assist to set up tray. Pt expressed satisfaction with current downgraded diet d/t missing dentures. Pt tolerated ground and pureed solids with adequate oropharyngeal coordination. Pt alternated consistencies by sipping thins from straw. No overt s/s of aspiration observed with current diet. Recommendations reviewed with pt who is in agreement with current diet and safety precautions. REPAIRER ENGINE PRODUCTION continues to follow. Frequency/Duration: Daily M-F Date Range for Service Req: Timeline to reassess: Engineering Supervisor Clinican/Clinical Fellow: No Supervisory Statement: I have reviewed and agree with the student/clinical fellow's documentation: N/A Speech Language Pathologist: Chanelle Ponce M.S., CCC-REPAIRER ENGINE PRODUCTION
--- NOTE | 2024-09-05 15:09 | MHC.CM.PN ---
Patient is not medically cleared to discharge today. She continues to require supplemental oxygen 5L via Oxymask[facility] is 1[facility] choice. DP STR via BLS pending medical clearance and a bed offer as well as insurance authorization.
[2024-09-05] MEDS: Atorvastatin Calcium 40 MG TABLET PO (20:09)
[2024-09-05] MEDS: Melatonin 3 MG TABLET 6 MG PO (21:59)
[2024-09-06] MEDS: Zolpidem Tartrate 5 MG TABLET PO ×2 (00:51→22:11)
[2024-09-06] MEDS: hydrOXYzine HCL 10 MG TABLET PO ×2 (03:24→15:45)
[2024-09-06] MEDS: Levothyroxine Sodium 88 MCG TABLET PO (03:24)
[2024-09-06 03:52] VITALS: BP 137/62; PULSE 87; RESP 16; TEMP 36.9; O2SAT 94
[2024-09-06 06:30] LABS: Venous Blood Gas Refer to POC result
[2024-09-06 06:32] LABS: VBG Base Excess 17.1 mmol/L; VBG HCO3 44 mmol/L (22-26); VBG pCO2 66 mmHg; VBG pH 7.43 (7.32-7.43); VBG pO2 43 mmHg
[2024-09-06 07:10] LABS: Hemoglobin 12.2 g/dl (12.0-16.0); Mean Corpuscular Hemoglobin 33.9 pg (27.0-33.0); Mean Corpuscular Volume 102.8 fL (80.0-98.0); Mean Platelet Volume 9.3 fL (9.4-12.3); Platelet Count 282 X10*3/uL (160-400); Red Cell Distribution Width 13.2 % (11.0-16.0); White Blood Count 8.6 X10*3/uL (4.8-10.8)
[2024-09-06 07:13] LABS: Anion Gap 12 (12-20); Blood Urea Nitrogen 14 mg/dL (9-16); Calcium 10.1 mg/dL (8.4-10.2); Carbon Dioxide 36 mmol/L (22-29); Chloride 90 mmol/L (96-108); Creatinine Clr Calc Pharmacy 58.1; Estimated Glomerular Filt Rate > 60; Glucose Random 110 mg/dL (60-115); Potassium 4.3 mmol/L (3.3-5.1); Sodium 134 mmol/L (135-145)
[2024-09-06 08:00] VITALS: BP 131/78; PULSE 88; RESP 20; TEMP 37.1; O2SAT 96
[2024-09-06] MEDS: cefTRIAXone sodium 1 GM VIAL IVPUSH (08:55)
[2024-09-06] MEDS: Thiamine HCL 100 MG TABLET PO (08:55)
[2024-09-06] MEDS: Acetaminophen 325 MG TABLET 650 MG PO ×2 (08:55→22:11)
[2024-09-06] MEDS: Azithromycin 500 MG TABLET PO (08:56)
[2024-09-06] MEDS: Aspirin 81 MG TAB.CHEW PO (08:57)
[2024-09-06] MEDS: Metoprolol Tartrate 25 MG TABLET PO ×2 (08:57→19:51)
[2024-09-06] MEDS: Enoxaparin Sodium 40 MG/0.4 ML SYRINGE SUBCUT (08:57)
[2024-09-06] MEDS: Nicotine 14 MG PATCH.TD24 TRANSDERMA (08:58)
--- NOTE | 2024-09-06 10:42 | HO.PM.IMPN ---
Subjective Subjective Date of Service: 09/06/24 Interval History: insomnia Physical Exam Vital Signs: Vital Signs: Last Vital Signs Temp 98.8 F 09/06/24 08:00 Pulse 88 09/06/24 08:00 Resp 20 09/06/24 08:00 BP 131/78 09/06/24 08:00 Pulse Ox 96 09/06/24 08:00 O2 Del Method Room Air 09/06/24 08:00 O2 Flow Rate 5 09/06/24 03:52 BMI result Body Mass Index 18.6 Const: Other: General: AO X 3, no acute distress, looks malnurished Resp: diminsihhed bilateral, no accessory muscles CVS: S1,S2,RRR GI: +BS, NT, no distention Skin: No rash Neuro: motor grossly intact, no tremors Psych: appropriate affect Objective Data Active Medications Acetaminophen (Acetaminophen 325 Mg Tablet) 650 mg PO Q6H PRN PRN Reason: Pain, Mild 1-3,fever,headache Last Admin: 09/06/24 08:55 Dose: 650 mg Documented By: BENITO Albuterol Sulfate (Albuterol Sulfate 90 Mcg 8 Gm Inhaler) 2 puff INHALE Q4H PRN PRN Reason: Shortness Of Breath Or Wheezing Albuterol/Ipratropium (Albuterol/Iprat 2.5/0.5mg 3 Ml Ampul.Neb) 3 ml INHALE RQ4H WHILE AWAKE PRN PRN Reason: Shortness of Breath Aspirin (Aspirin 81 Mg Tab.Chew) 81 mg PO DAILY [facility] Last Admin: 09/06/24 08:57 Dose: 81 mg Documented By: BENITO Atorvastatin Calcium (Atorvastatin Calcium 40 Mg Tablet) 40 mg PO BEDTIME [facility] Last Admin: 09/05/24 20:09 Dose: 40 mg Documented By: DHAVAL Azithromycin (Azithromycin 500 Mg Tablet) 500 mg PO Q24H [facility] Last Admin: 09/06/24 08:56 Dose: 500 mg Documented By: BENITO Calcium Carbonate (Calcium Carbonate 750 Mg Tab.Chew) 750 mg PO Q4H PRN PRN Reason: Heartburn Ceftriaxone Sodium (Ceftriaxone Sodium 1 Gm Vial) 1 gm IVPUSH Q24H [facility] Last Admin: 09/06/24 08:55 Dose: 1 gm Documented By: BENITO Enoxaparin Sodium (Enoxaparin Sodium 40 Mg/0.4 Ml Syringe) 40 mg SUBCUT Q24H [facility] Last Admin: 09/06/24 08:57 Dose: 40 mg Documented By: BENITO Ergocalciferol (Ergocalciferol (Vitamin D2) 1,250 Mcg Capsule) 1,250 mcg PO Q14D [facility] Last Admin: 08/31/24 14:02 Dose: 1,250 mcg Documented By: CHARLES Hydroxyzine HCl (Hydroxyzine Hcl 10 Mg Tablet) 10 mg PO Q6H PRN PRN Reason: anxiety/restlessness Last Admin: 09/06/24 03:24 Dose: 10 mg Documented By: DHAVAL Levothyroxine Sodium (Levothyroxine Sodium 88 Mcg Tablet) 88 mcg PO DAILY@0600 [facility] Last Admin: 09/06/24 03:24 Dose: 88 mcg Documented By: DHAVAL Magnesium Hydroxide (Milk Of Magnesia 30 Ml Oral.Susp) 30 ml PO DAILY PRN PRN Reason: Constipation Last Admin: 09/04/24 09:04 Dose: 30 ml Documented By: NINI Melatonin (Melatonin 3 Mg Tablet) 6 mg PO BEDTIME PRN PRN Reason: Insomnia Last Admin: 09/05/24 21:59 Dose: 6 mg Documented By: DHAVAL Metoprolol Tartrate (Metoprolol Tartrate 25 Mg Tablet) 25 mg PO BID [facility]; Protocol Last Admin: 09/06/24 08:57 Dose: 25 mg Documented By: BENITO Nicotine (Nicotine 14 Mg Patch.Td24) 14 mg TRANSDERMA DAILY [facility] Last Admin: 09/06/24 08:58 Dose: 14 mg Documented By: BENITO Nicotine Polacrilex (Nicotine Polacrilex 2 Mg Gum) 2 mg BUCCAL Q2H PRN PRN Reason: Nicotine Cravings Nitroglycerin (Nitroglycerin 0.4 Mg Tab.Subl) 0.4 mg SUBLINGUAL Q5MX3 PRN PRN Reason: Chest Pain Last Admin: 09/04/24 04:50 Dose: 0.4 mg Documented By: SAMMY Ondansetron HCl (Ondansetron Hcl 4 Mg/2 Ml Vial) 4 mg IVPUSH Q8H PRN PRN Reason: Nausea and Vomiting Pharmacy Consult (Consult Rx Etoh Phenob Im/Po) 1 each MISCELLANE ONCE PRN; Protocol PRN Reason: Consult order Sodium Chloride (0.9 % Sodium Chloride Flush 3 Ml Syringe) 3 ml IVFLUSH QSHIFT JG Last Admin: 09/06/24 10:40 Dose: Not Given Documented By: BENITO Non-Admin Reason: Previously Administered Thiamine HCl (Thiamine Hcl 100 Mg Tablet) 100 mg PO DAILY [facility] Stop: 09/12/24 09:01 Last Admin: 09/06/24 08:55 Dose: 100 mg Documented By: BENITO Zolpidem Tartrate (Zolpidem Tartrate 5 Mg Tablet) 5 mg PO BEDTIME PRN PRN Reason: Insomnia Last Admin: 09/06/24 00:51 Dose: 5 mg Documented By: DHAVAL Labs 09/06/24 06:22 09/06/24 06:22 Labs: Laboratory Results - last 24 hr 09/06/24 09/06/24 06:22 06:28 MCV 102.8 H MCH 33.9 H MCHC 33.0 RDW 13.2 Plt Count 282 MPV 9.3 L Absolute Nucleated RBC 0.000 Nucleated RBC % (auto) 0.0 VBG pH 7.43 VBG pCO2 66 VBG pO2 43 VBG HCO3 44 H VBG O2 Saturation 62.0 VBG Base Excess 17.1 Anion Gap 12 Estim Creat Clear Calc 58.1 Estimated GFR > 60 Random Glucose 110 Calcium 10.1 Assessment and Plan (1) Non-ST elevation [place] (NSTEMI): Status: Acute (2) Weight loss: Status: Acute (3) Malnutrition: Status: Acute (4) Alcohol use disorder: Status: Acute Plan 74F H HTN, hypothyroidism, chronic alcohol dependency, here with diarrhea weight loss and found to have NSTEMI NSTEMI, inf wall changes on ECG Troponin 600-->500 medical management with ASA, stattin, BB, completed IV heparin for 48 echocardiogram no WMA, ef > 70% cardiology advises medical management at this time Hypotension, ? related to diarrhea, decrease oral intake no new murmur resolved with IvF, acute hypoxic resp failure due to acute diastolic heart failure and copd undiagnosed and pneumonia diuresed well, holding diuretics for now started on rocephin and azithro wean o2 as tolerated, currently on 4L saturating 92% alcohol use disorder, high risk for withdrawal, drinks 1 pint of liquor/day s/p phenobarbital taper continue folic acid and thiamine Diarrhea, unintentional weight loss since december last year mild protein calory malnutrition, supplement no more diarrhea, lactose controlled diet last colonoscopy in 2012, no f/u non contrast CT of Abd/pelv No acute finding seen by GI, colonoscopy in the future when medically stable HypOkalemia, hypomagnesemia d/t chronic alcohol use replaced and corrected HTN hold Norvasc continue Metoprolol-new Tobacco use disorder NRT Hypothyroidism continue leveothyroxine, TSH 0.03, FT4 1.37 DVT prophylaxis: Lovenox Full code dispo - STR need for inpatient: hpyoxia Quality Stroke Does the patient have a stroke diagnosis?: No VTE Prior VTE?: No VTE Risk Level:: Medical - moderate - high VTE Device Contraindication: Treatment Not Indicated VTE Drug Contraindication: N/A - Med Ordered
--- NOTE | 2024-09-06 11:23 | MHC.CM.PN ---
Addendum entered by Zulma Brown 09/06/24 11:27: IMM 09/06/24 Original Note: Patient is being weaned from Oxygen for STR. She has been at 5L decreased to 4L spo2 92%. She is currently on 2L Spo2 96%. [facility] is following. A clinical update has been sent. T/W has requested [facility] to initiate the insurance authorization process.
[2024-09-06 11:55] VITALS: BP 129/65; PULSE 75; RESP 20; TEMP 36.6; O2SAT 96
[2024-09-06] MEDS: Nystatin Oral Susp 500,000 UNIT/5 ML ORAL.SUSP 400000 UNIT PO ×3 (12:50→19:52)
[2024-09-06] MEDS: 0.9 % Sodium Chloride Flush 3 ML SYRINGE IVFLUSH ×2 (15:47→19:52)
[2024-09-06 15:51] VITALS: BP 123/58; PULSE 87; RESP 20; TEMP 36.4; O2SAT 92
--- NOTE | 2024-09-06 16:35 | MHC.SL.SWA ---
Speech Pathologist Impression: Risk of Aspiration Due to: Dysphasia Diet Status: No changes to current diet recommended at this time, continue on NDD2 Ground Mechanical with Thin liquids, pills whole in puree. Liquid Consistency and Strategies for Safe Swallow: Liquid Intake Recommendation: Thin Liquid Intake Strategies: Small Sips Solid Food Consistency: Dietary Recommendations: Grnd/Mech Altered (NDD2) Additional Modifications to Solid Foods: Oral Medication Intake: Whole with Puree Please contact the pharmacy regarding appropriate crushable or liquid drug formulations that are available whenever modified delivery is recommended. Compensatory Strategies and Precautions to be Taken for Safe Swallow: Sitting Upright (90 deg) Liquids from Cup Small Bites and Sips Alternate Liquids/Solids Supervision While Eating and Drinking for Safe Swallow: Tray Set Up Foods to Avoid: Swallowing Recommended Treatments: Compens. Strategy Educat. Recommendation for Speech: Inpatient Speech Therapy Comment: Patient seen at lunch. At onset, patient appeared to have nodded off after taking a few bites of food from tray which was set up in front of her, with head of bed elevated. Patient awoke to greeting, agreed to have curtains pulled and lights on (room was dark). Patient then continued with meal independently, scooping ground meat and vegetables with fork, often blending with mashed/pureed potatoes. Patient had c/o that she has been repeatedly given eggs at breakfast, and was told she could not have toast or cold cereal with current diet level. Rational behind this was discussed with patient encouraged to pick other possible foods for breakfast, and patient agreeing that current diet is one she tolerates due to limited dentition. Patient presented as mostly independent at meal, however she will continue to benefit from assistance with setting up tray, assuring good positioning, and making sure room is well lit for meal. No changes to current diet recommended at this time, continue on NDD2 Ground Mechanical with Thin liquids, pills whole in puree. Frequency/Duration: Daily M-F Date Range for Service Req: Timeline to reassess: Grain Picker Clinican/Clinical Fellow: No Supervisory Statement: I have reviewed and agree with the student/clinical fellow's documentation: N/A Speech Language Pathologist: Danay Trevino M.A., CCC-MANAGER DATA WAREHOUSING
--- NOTE | 2024-09-06 17:44 | HO.WOUND ---
Wound Consult: Initial 74yr old?female admitted to [facility] on 08/29/24 17:02- See progress notes and H&P for detailed history.? Wound consult placed for Birdge of nose.? Patient agreeable to assessment and photo documentation.? Patient was assessed during P&I Data collection Device related injury to bridge of nose noted. Patient is noted to have Oxymask in use delivering oxygen - patient reports tendernss and disconfort at the bridge of her nose - there is no foam dressing noted in place at this time. Bridge of Nose Etiology: ?Device related Stage 1 Pressure Injury ? Wound Bed: red nonblanchable intact tissue Drainage / Odor: None Edges: ?attached Brianna wound: ?intact No Induration, Fluctuance or Warmth noted Pain: pain and tenderness reported Goals of Treatment: ? off load pressure from device Recommendations: 1. Turn and Reposition every 2 hours and as needed for patient comfort.? Use pillows or wedges to support off loading positions. 2. Off Load all bony prominences with use of pillows and heel boots if needed.? Apply Preventative foams where needed. ? 3. Monitor for incontinence and moisture control, use barrier creams when needed for prevention and treatment. 4. Provide adequate and supplemental nutrition.? 5. Order low air loss mattress. 6. When applicable maintain blood glucose levels per Providers order. Bridge of Nose - Routine Cleansing. Apply skin prep allow to dry. Apply Mepilex foam dressing under Oxymask to protect from friction and pressure . Encourage NC use when agreeable. Re-consult wound care Nurse for wound deterioration or wound changes.
[2024-09-06 19:19] VITALS: BP 155/63; PULSE 96; RESP 20; TEMP 37; O2SAT 94
[2024-09-06] MEDS: Atorvastatin Calcium 40 MG TABLET PO (19:51)
[2024-09-06] MEDS: Melatonin 3 MG TABLET 6 MG PO (19:51)
[2024-09-06 23:29] VITALS: BP 117/56; PULSE 76; RESP 20; TEMP 36.4; O2SAT 92
[2024-09-07] MEDS: hydrOXYzine HCL 10 MG TABLET PO ×3 (01:24→15:25)
[2024-09-07 03:19] VITALS: BP 114/66; PULSE 76; RESP 20; TEMP 36.2; O2SAT 92
[2024-09-07] MEDS: Levothyroxine Sodium 88 MCG TABLET PO (03:24)
[2024-09-07] MEDS: Enoxaparin Sodium 40 MG/0.4 ML SYRINGE SUBCUT (07:48)
[2024-09-07] MEDS: cefTRIAXone sodium 1 GM VIAL IVPUSH (07:48)
[2024-09-07] MEDS: Acetaminophen 325 MG TABLET 650 MG PO ×2 (07:48→15:52)
[2024-09-07 07:49] VITALS: BP 103/57; PULSE 86; RESP 20; TEMP 36.4; O2SAT 92
[2024-09-07] MEDS: 0.9 % Sodium Chloride Flush 3 ML SYRINGE IVFLUSH (07:49)
[2024-09-07] MEDS: Thiamine HCL 100 MG TABLET PO (08:08)
[2024-09-07] MEDS: Aspirin 81 MG TAB.CHEW PO (08:08)
[2024-09-07] MEDS: Metoprolol Tartrate 25 MG TABLET PO (08:09)
[2024-09-07] MEDS: Nystatin Oral Susp 500,000 UNIT/5 ML ORAL.SUSP 400000 UNIT PO ×3 (08:09→16:48)
[2024-09-07] MEDS: Nicotine 14 MG PATCH.TD24 TRANSDERMA (08:12)
[2024-09-07] MEDS: Azithromycin 500 MG TABLET PO (09:42)
--- NOTE | 2024-09-07 09:57 | MHC.SL.SWA ---
Speech Pathologist Impression: Risk of Aspiraiton, Oropharyngeal Dysphagia Risk of Aspiration Due to: Limited dentition Dysphasia Diet Status: No changes to current diet recommended at this time, continue on NDD2 Ground Mechanical with Thin liquids, pills whole in puree or liquid. Liquid Consistency and Strategies for Safe Swallow: Liquid Intake Recommendation: Thin Liquid Intake Strategies: Small Sips Solid Food Consistency: Dietary Recommendations: Grnd/Mech Altered (NDD2) Additional Modifications to Solid Foods: Pills whole with liquid or puree as tolerated Oral Medication Intake: Whole with Puree Please contact the pharmacy regarding appropriate crushable or liquid drug formulations that are available whenever modified delivery is recommended. Compensatory Strategies and Precautions to be Taken for Safe Swallow: Sitting Upright (90 deg) Liquids from Cup Small Bites and Sips Alternate Liquids/Solids Supervision While Eating and Drinking for Safe Swallow: Tray Set Up Swallowing Recommended Treatments: Compens. Strategy Educat. Recommendation for Speech: Inpatient Speech Therapy Comment: Frequency/Duration: Daily M-F Date Range for Service Req: Timeline to reassess: Rubber Production Machine Operator Clinican/Clinical Fellow: No Supervisory Statement: I have reviewed and agree with the student/clinical fellow's documentation: N/A Speech Language Pathologist: Susannah Ferraro M.A., CCC-FOOD AND BEVERAGE SERVICE MANAGER
--- NOTE | 2024-09-07 10:31 | HO.PM.IMPN ---
Subjective Subjective Date of Service: 09/07/24 Interval History: feeling better, down to 2L Physical Exam Vital Signs: Vital Signs: Last Vital Signs Temp 97.5 F 09/07/24 07:49 Pulse 86 09/07/24 07:49 Resp 20 09/07/24 07:49 BP 103/57 L 09/07/24 07:49 Pulse Ox 92 09/07/24 07:49 O2 Del Method Nasal Cannula 09/07/24 07:49 O2 Flow Rate 2 09/07/24 07:49 BMI result Body Mass Index 18.6 Const: Other: General: AO X 3, no acute distress, looks malnurished Resp: diminsihhed bilateral, no accessory muscles CVS: S1,S2,RRR GI: +BS, NT, no distention Skin: No rash Neuro: motor grossly intact, no tremors Psych: appropriate affect Objective Data Active Medications Acetaminophen (Acetaminophen 325 Mg Tablet) 650 mg PO Q6H PRN PRN Reason: Pain, Mild 1-3,fever,headache Last Admin: 09/07/24 07:48 Dose: 650 mg Documented By: LOYD Albuterol Sulfate (Albuterol Sulfate 90 Mcg 8 Gm Inhaler) 2 puff INHALE Q4H PRN PRN Reason: Shortness Of Breath Or Wheezing Albuterol/Ipratropium (Albuterol/Iprat 2.5/0.5mg 3 Ml Ampul.Neb) 3 ml INHALE RQ4H WHILE AWAKE PRN PRN Reason: Shortness of Breath Aspirin (Aspirin 81 Mg Tab.Chew) 81 mg PO DAILY [facility] Last Admin: 09/07/24 08:08 Dose: 81 mg Documented By: LOYD Atorvastatin Calcium (Atorvastatin Calcium 40 Mg Tablet) 40 mg PO BEDTIME [facility] Last Admin: 09/06/24 19:51 Dose: 40 mg Documented By: FOGARTB Azithromycin (Azithromycin 500 Mg Tablet) 500 mg PO Q24H [facility] Last Admin: 09/07/24 09:42 Dose: 500 mg Documented By: LOYD Calcium Carbonate (Calcium Carbonate 750 Mg Tab.Chew) 750 mg PO Q4H PRN PRN Reason: Heartburn Ceftriaxone Sodium (Ceftriaxone Sodium 1 Gm Vial) 1 gm IVPUSH Q24H [facility] Last Admin: 09/07/24 07:48 Dose: 1 gm Documented By: LOYD Enoxaparin Sodium (Enoxaparin Sodium 40 Mg/0.4 Ml Syringe) 40 mg SUBCUT Q24H [facility] Last Admin: 09/07/24 07:48 Dose: 40 mg Documented By: LOYD Ergocalciferol (Ergocalciferol (Vitamin D2) 1,250 Mcg Capsule) 1,250 mcg PO Q14D [facility] Last Admin: 08/31/24 14:02 Dose: 1,250 mcg Documented By: CHARLES Hydroxyzine HCl (Hydroxyzine Hcl 10 Mg Tablet) 10 mg PO Q6H PRN PRN Reason: anxiety/restlessness Last Admin: 09/07/24 08:08 Dose: 10 mg Documented By: LOYD Levothyroxine Sodium (Levothyroxine Sodium 88 Mcg Tablet) 88 mcg PO DAILY@0600 [facility] Last Admin: 09/07/24 03:24 Dose: 88 mcg Documented By: AUREA-ALEXANDRE Magnesium Hydroxide (Milk Of Magnesia 30 Ml Oral.Susp) 30 ml PO DAILY PRN PRN Reason: Constipation Last Admin: 09/04/24 09:04 Dose: 30 ml Documented By: NINI Melatonin (Melatonin 3 Mg Tablet) 6 mg PO BEDTIME PRN PRN Reason: Insomnia Last Admin: 09/06/24 19:51 Dose: 6 mg Documented By: FOGARTB Metoprolol Tartrate (Metoprolol Tartrate 25 Mg Tablet) 25 mg PO BID [facility]; Protocol Last Admin: 09/07/24 08:09 Dose: 25 mg Documented By: LOYD Nicotine (Nicotine 14 Mg Patch.Td24) 14 mg TRANSDERMA DAILY [facility] Last Admin: 09/07/24 08:12 Dose: 14 mg Documented By: LOYD Nicotine Polacrilex (Nicotine Polacrilex 2 Mg Gum) 2 mg BUCCAL Q2H PRN PRN Reason: Nicotine Cravings Nitroglycerin (Nitroglycerin 0.4 Mg Tab.Subl) 0.4 mg SUBLINGUAL Q5MX3 PRN PRN Reason: Chest Pain Last Admin: 09/04/24 04:50 Dose: 0.4 mg Documented By: SAMMY Nystatin (Nystatin Oral Susp 500,000 Unit/5 Ml Oral.Susp) 400,000 unit PO QID [facility]; Protocol Last Admin: 09/07/24 08:09 Dose: 400,000 unit Documented By: LOYD Ondansetron HCl (Ondansetron Hcl 4 Mg/2 Ml Vial) 4 mg IVPUSH Q8H PRN PRN Reason: Nausea and Vomiting Pharmacy Consult (Consult Rx Etoh Phenob Im/Po) 1 each MISCELLANE ONCE PRN; Protocol PRN Reason: Consult order Sodium Chloride (0.9 % Sodium Chloride Flush 3 Ml Syringe) 3 ml IVFLUSH QSHIFT JG Last Admin: 09/07/24 07:49 Dose: 3 ml Documented By: LOYD Thiamine HCl (Thiamine Hcl 100 Mg Tablet) 100 mg PO DAILY [facility] Stop: 09/12/24 09:01 Last Admin: 09/07/24 08:08 Dose: 100 mg Documented By: LOYD Zolpidem Tartrate (Zolpidem Tartrate 5 Mg Tablet) 5 mg PO BEDTIME PRN PRN Reason: Insomnia Last Admin: 09/06/24 22:11 Dose: 5 mg Documented By: FOGARTB Labs 09/06/24 06:22 09/06/24 06:22 Assessment and Plan (1) Non-ST elevation DE (NSTEMI): Status: Acute (2) Weight loss: Status: Acute (3) Malnutrition: Status: Acute (4) Alcohol use disorder: Status: Acute Plan 74F PMH HTN, hypothyroidism, chronic alcohol dependency, here with diarrhea weight loss and found to have NSTEMI NSTEMI, inf wall changes on ECG Troponin 600-->500 medical management with ASA, stattin, BB, completed IV heparin for 48 echocardiogram no WMA, ef > 70% cardiology advises medical management at this time Hypotension, ? related to diarrhea, decrease oral intake no new murmur resolved with IvF, acute hypoxic resp failure due to acute diastolic heart failure and copd undiagnosed and pneumonia diuresed well, holding diuretics for now started on rocephin and azithro wean o2 as tolerated, currently on 2L saturating 92% alcohol use disorder, high risk for withdrawal, drinks 1 pint of liquor/day s/p phenobarbital taper continue folic acid and thiamine Diarrhea, unintentional weight loss since december last year mild protein calory malnutrition, supplement no more diarrhea, lactose controlled diet last colonoscopy in 2012, no f/u non contrast CT of Abd/pelv No acute finding seen by GI, colonoscopy in the future when medically stable HypOkalemia, hypomagnesemia d/t chronic alcohol use replaced and corrected HTN hold Norvasc continue Metoprolol-new Tobacco use disorder NRT Hypothyroidism continue leveothyroxine, TSH 0.03, FT4 1.37 DVT prophylaxis: Lovenox Full code dispo - STR need for inpatient: dispo planning Quality Stroke Does the patient have a stroke diagnosis?: No VTE Prior VTE?: No VTE Risk Level:: Medical - moderate - high VTE Device Contraindication: Treatment Not Indicated VTE Drug Contraindication: N/A - Med Ordered
--- NOTE | 2024-09-07 10:35 | PM.DS ---
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 She recently travelled to [place], no other household members with similar symptoms, lives with [place] people, no recent Abx use. Unpone eval in the ED noted to have inferior TWI on ECG, she denies chest pain or shortness of breath. Troponin I level is 644, hemodynamically stable. Cardilogy has asvised medical treatement with heparin, ASA, and is also getting metoprolol. She is not experiencing alcohol withdrawal as of yet, althogh she states has has had withdrawal in the past and last drank yesterday. Other notable things include K 3.2 Mag 1.5, BNP 43 hospital course: Patient was admitted with non ST elevation myocardial infarction, she was noted to have troponin of 600. Was seen by Cardiology recommended medical management with antiplatelet, statin, beta-coleman and 48 hours of IV heparin. Echo did not show any wall motion abnormality, ejection fraction was 70%. Cardiology recommended continuing medical management and is not a good candidate for invasive intervention. Course complicated by hypotension likely related to diarrhea which resolved with IV fluids. On discharge amlodipine has been held. Course also complicated by acute hypoxic respiratory failure due to acute on chronic diastolic CHF, COPD and aspiration pneumonia. Was diuresed well and now euvolemic, treated with course of ceftriaxone azithromycin which will be continued on discharge as Ceftin and azithromycin. Oxygen was weaned down to 2 L and should continue to wean for goal saturation of 89-92%. For alcohol dependence patient was empirically put on phenobarbital taper, continued on vitamins. For diarrhea and unintentional weight loss recommendations were for lactose-free diet, and to follow up with colonoscopy with GI as outpatient. For acute hypokalemia and hypomagnesemia due to alcohol and diarrhea received replacement. For tobacco use disorder was started on nicotine. For hypothyroid was continued on levothyroxine. Patient is feeling better and will be discharged to longterm facility she is expected require less than 30 days. Time Attestation Discharge Coordination Time (in mins): 37 Quality: Safe Use of Opioids Does Pt have an Active Cancer Diagnosis on the Problem List?: No Quality: Stroke Does the patient have a stroke diagnosis?: No Physical Exam Vital Signs: Vital Signs: Last Vital Signs Temp 97.5 F 09/07/24 07:49 Pulse 86 09/07/24 07:49 Resp 20 09/07/24 07:49 BP 103/57 L 09/07/24 07:49 Pulse Ox 92 09/07/24 07:49 O2 Del Method Nasal Cannula 09/07/24 07:49 O2 Flow Rate 2 09/07/24 07:49 BMI result Body Mass Index 18.6 Const: Other: General: AO X 3, no acute distress, looks malnurished Resp: diminsihhed bilateral, no accessory muscles CVS: S1,S2,RRR GI: +BS, NT, no distention Skin: No rash Neuro: motor grossly intact, no tremors Psych: appropriate affect Discharge Plan Discharge Anticipated Discharge Date/Time: 09/07/24 10:31 Patient Disposition: Xfer SNF Discharge Diagnosis: pna, etoh, nstemi Referrals: [facility] [Other] - 1 Week Thad Benson MD [Physician] - 1 Week Sahara Callejas MD [Primary Care Provider] - 1 Week Discharge Medications: New nicotine (polacrilex) 2 mg Gum 2 mg buccal Q2H PRN (Reason: Nicotine Cravings) Qty: 0 0RF azithromycin 500 mg Tablet 500 mg PO Q24H 4 Days Qty: 0 0RF atorvastatin 40 mg Tablet 40 mg PO BEDTIME Qty: 0 0RF aspirin 81 mg Tablet,Chewable 81 mg PO DAILY Qty: 90 0RF metoprolol tartrate 25 mg Tablet 25 mg PO BID Qty: 0 0RF Protocol: Hold for SBP/HR < HOLD for SBP < : 90 HOLD for HR < : 60 hydroxyzine HCl 10 mg Tablet 10 mg PO Q6H PRN (Reason: Anxiety/Restlessness) Qty: 0 0RF zolpidem 5 mg Tablet 5 mg PO BEDTIME PRN (Reason: Insomnia) Qty: 0 0RF thiamine mononitrate (vit B1) 100 mg Tablet 100 mg PO DAILY Qty: 0 0RF cefuroxime axetil 500 mg tablet 500 mg PO BID Qty: 10 0RF midodrine 5 mg Tablet 5 mg PO TID PRN (Reason: SBP<90) Qty: 0 0RF Continued levothyroxine 88 mcg tablet 88 mcg PO DAILY@0600 ergocalciferol (vitamin D2) 1,250 mcg (50,000 unit) capsule 1,250 mcg PO Q14D Rx Instructions: Taken every 2 weeks on . albuterol sulfate 90 mcg/actuation HFA aerosol inhaler 2 puff inhalation Q4-6H PRN (Reason: Shortness Of Breath Or Wheezing) acetaminophen [Tylenol] 325 mg Tablet 650 mg PO Q4H PRN (Reason: Pain) Discontinued amlodipine 10 mg tablet 10 mg PO DAILY Discharge Orders: Discharge Order (Routine); Ordered 09/07/24 Ordered By: Nikos Buckner Diet: Advance to usual diet Activity on Discharge: As tolerated Stand Alone Forms: Patient Portal Discharge page Print Language: Ukrainian Care Plan Goals: recovery Health Concerns: nstemi, pna, copd, alcohol Plan of Treatment: med changes as per med rec rehab avoid alcohol, smoking Assessment: see above
[2024-09-07 11:16] VITALS: BP 86/48; PULSE 86; RESP 18; TEMP 36.4; O2SAT 92
--- NOTE | 2024-09-07 11:22 | MHC.CM.PN ---
EMR reviewed and per MD rounds, pt is medically cleared for discharge to [facility] requesting clinical updates and for pt to be down to at least 3L O2. Clinical updates sent, and pt currently on 2L O2 via [facility] now initiating insurance auth.
[2024-09-07] MEDS: Albumin Human 25 % 100 ML IV (12:43)
--- NOTE | 2024-09-07 14:06 | MHC.CM.PN ---
Second IMM given 09/07. Pt is medically cleared for discharge to [facility], insurance auth obtained, she will transport there via B[facility]. Pt is aware and in agreement with discharge plan.
--- NOTE | 2024-09-07 14:12 | MHC.CLN ---
F/U DIET RX: LACTOSE CONTROLLED, GROUND. RECEIVING ENSURE BID TO INCREASE KCALS. SUPP PROVIDES 700KCALS, 40G PROTEIN (SUPP IS SUITABLE FOR LACTOSE INTOLERANCE). CONTINUE TO MONITOR PO INTAKE AND ENCOURAGE SUPPLEMENTS.
--- NOTE | 2024-09-25 07:05 | P.CDIM_ITS ---
PROVIDER RESPONSE TEXT: To clarify, the appropriate diagnosis supported by the clinical indicators: NSTEMI: type 2 QUERY TEXT: PHYSICIAN'S DOCUMENTATION REQUEST Date of Query: 09/21/2024 10:51 AM EDT Patient Name: Loly Spann Admit Date: 08/29/2024 Dear Nikos Buckner MD, RETROSPECTIVE QUERY A review of the medical record indicates additional documentation may be needed. Please review below and update the documentation accordingly. Clinical Indicators: Cardiology consultation note dated 08/31/24 - Cardiac catheterization 2021- proximal RCA 100% stenosis. Chronic total occlusion. Moderate mid LAD stenosis. Mild circumflex stenosis. Troponin levels are 644 and 575. Overall, suspect that the elevated troponins are in the setting of demand/Type 2 NSTEMI related to diarrhea. Medications: IV heparin drip x 48 hrs, aspirin, beta-blockers, statins. Consistency and clarity of a documented diagnosis: NSTEMI due to demand ischemia, Type 2 or other specified Other (explain) Clinically unable to determine (explain) Thank you, Gail Banegas, CCS, CDIS Use of terms such as suspected, likely, concern for, or probable (associated with a specific diagnosis that is being evaluated, monitored, or treated as if it exists) are acceptable and can be coded in the inpatient setting, when documented at the time of discharge. Please use your independent medical judgment in providing your response. THIS QUERY IS PART OF THE PERMANENT MEDICAL RECORD
== END 2024-09-07 17:35 | disposition skilled nursing facility (03) | DRG 391 ==
LOC: HO.ED 16:56 → HO.EDOVER 17:31 → HO.IMC 19:19
PROVIDERS: Hospitalist; Internal Medicine; Physician Assistant Medical; Admitting Provider Student in an Organized Health Care Education/Training Program; Emergency Provider Emergency Medicine; PCP Internal Medicine; Visit Provider Internal Medicine
DX: R19.7 Diarrhea, unspecified (principal); I21.A1 Myocardial infarction type 2; I50.33 Acute on chronic diastolic (congestive) heart failure; J69.0 Pneumonitis due to inhalation of food and vomit; J96.01 Acute respiratory failure with hypoxia; E44.1 Mild protein-calorie malnutrition; Z68.1 Body mass index [BMI] 19.9 or less, adult; F17.210 Nicotine dependence, cigarettes, uncomplicated; Z71.6 Tobacco abuse counseling; F10.90 Alcohol use, unspecified, uncomplicated; E03.9 Hypothyroidism, unspecified; J44.9 Chronic obstructive pulmonary disease, unspecified; I11.0 Hypertensive heart disease with heart failure; I95.9 Hypotension, unspecified; E87.6 Hypokalemia; E83.42 Hypomagnesemia; Z20.822 Contact with and (suspected) exposure to COVID-19; Z79.890 Hormone replacement therapy; Z79.899 Other long term (current) drug therapy
CPT/HCPCS: 0241U; 36415; 71045; 71046; 71250; 74176; 80048; 80053; 80061; 80307; 81001; 81003; 82803; 83036; 83690; 83735; 83880; 84439; 84443; 84484; 85025; 85027; 85610; 85730; 87507; 92526; 92610; 93005; 93306; 97116; 97162; 97530; 99285; J0696; J1120; J1644; J1650; J1938; J2560; J3360; J3475; J7120; P9047; Q9957

== ENCOUNTER → 2024-08-29 15:44 | Outpatient (BNV) | payer OTHER, SELFPAY | PROVIDERS: Emergency Provider Emergency Medicine; PCP Internal Medicine; Visit Provider Radiology Diagnostic Radiology | DX: I71.43 Infrarenal abdominal aortic aneurysm, without rupture (principal); R06.02 Shortness of breath | CPT/HCPCS: 71046 ==

== ENCOUNTER 2024-08-29 17:02 | Outpatient (BNV) | payer OTHER, SELFPAY | END 2024-09-01 18:10 | PROVIDERS: Admitting Provider Student in an Organized Health Care Education/Training Program; Emergency Provider Emergency Medicine; PCP Internal Medicine; Visit Provider Radiology Diagnostic Radiology | DX: J94.8 Other specified pleural conditions (principal) | CPT/HCPCS: 71045 ==

== ENCOUNTER 2024-08-29 17:02 | Outpatient (BNV) | payer OTHER, SELFPAY | END 2024-09-04 18:18 | PROVIDERS: Admitting Provider Student in an Organized Health Care Education/Training Program; Emergency Provider Emergency Medicine; PCP Internal Medicine; Visit Provider Radiology Diagnostic Radiology | DX: J98.11 Atelectasis (principal); J90 Pleural effusion, not elsewhere classified | CPT/HCPCS: 71250 ==

== ENCOUNTER 2024-08-29 17:02 | Outpatient (BNV) | payer OTHER, SELFPAY | END 2024-08-30 07:00 | PROVIDERS: Admitting Provider Student in an Organized Health Care Education/Training Program; Emergency Provider Emergency Medicine; PCP Internal Medicine; Visit Provider Internal Medicine | DX: I49.1 Atrial premature depolarization (principal); I45.10 Unspecified right bundle-branch block | CPT/HCPCS: 93010; 93306 ==

== ENCOUNTER 2024-08-29 17:02 | Outpatient (BNV) | payer OTHER, SELFPAY | END 2024-09-04 04:32 | PROVIDERS: Admitting Provider Student in an Organized Health Care Education/Training Program; Emergency Provider Emergency Medicine; PCP Internal Medicine; Visit Provider Internal Medicine Cardiovascular Disease | DX: I45.10 Unspecified right bundle-branch block (principal) | CPT/HCPCS: 93010 ==

== ENCOUNTER → 2024-08-29 17:02 | Outpatient (BNV) | payer OTHER, SELFPAY | PROVIDERS: Admitting Provider Student in an Organized Health Care Education/Training Program; Emergency Provider Emergency Medicine; PCP Internal Medicine; Visit Provider Internal Medicine | DX: I21.4 Non-ST elevation (NSTEMI) myocardial infarction (principal); F10.90 Alcohol use, unspecified, uncomplicated; E46 Unspecified protein-calorie malnutrition | CPT/HCPCS: 99223; 99233 ==

== ENCOUNTER → 2024-08-29 17:02 | Outpatient (BNV) | payer OTHER, SELFPAY | PROVIDERS: Admitting Provider Student in an Organized Health Care Education/Training Program; Emergency Provider Emergency Medicine; PCP Internal Medicine; Visit Provider Internal Medicine | DX: I21.4 Non-ST elevation (NSTEMI) myocardial infarction (principal); R63.4 Abnormal weight loss; E46 Unspecified protein-calorie malnutrition; F10.90 Alcohol use, unspecified, uncomplicated | CPT/HCPCS: 99223; 99232; 99233 ==

== ENCOUNTER 2024-09-22 23:57 | Emergency (ER) | payer OTHER, SELFPAY ==
[2024-09-23 00:06] VITALS: BP 117/54; PULSE 75; RESP 18; TEMP 36.8; O2SAT 88; BMI 17.1
[2024-09-23 00:25] VITALS: BP 113/57; PULSE 72; RESP 16; TEMP 36.4; O2SAT 95
--- NOTE | 2024-09-23 01:16 | ED.GENADULT ---
HPI - General Adult General Chief complaint: General Medical Stated complaint: Low BP Time Seen by Provider: 09/23/24 01:14 Source: patient Mode of arrival: EMS Limitations: no limitations History of Present Illness ED Provider: HPI narrative: Patient's ex-smoker and alcoholic quit drinking on 09/07 with a history of hypertension hypothyroidism COPD oxygen-dependent does discharge from rehab on 09/21 brought by her daughter as patient noticed patient has been weak all day today checked her blood pressure was 91/57 repeat blood pressure was 89/47 patient was not on any oxygen at that time and saturating 88% at room air on arrival patient is saturating 95% on 2 L Related Data Home Medications ?Medication ?Instructions ?Recorded ?Confirmed acetaminophen 325 mg tablet 650 mg PO Q4H PRN Pain 08/29/24 08/29/24 (Tylenol) albuterol sulfate 90 mcg/actuation 2 puff inhalation Q4-6H PRN 08/29/24 08/29/24 aerosol inhaler Shortness Of Breath Or Wheezing ergocalciferol (vitamin D2) 1,250 1,250 mcg PO Q14D 08/29/24 08/29/24 mcg (50,000 unit) capsule levothyroxine 88 mcg tablet 88 mcg PO DAILY@0600 08/29/24 08/29/24 Previous Rx's ?Medication ?Instructions ?Recorded aspirin 81 mg chewable tablet 81 mg PO DAILY #90 tabs 09/07/24 atorvastatin 40 mg tablet 40 mg PO BEDTIME #0 tabs 09/07/24 azithromycin 500 mg tablet 500 mg PO Q24H 4 days #0 tabs 09/07/24 cefuroxime axetil 500 mg tablet 500 mg PO BID #10 tabs 09/07/24 hydroxyzine HCl 10 mg tablet 10 mg PO Q6H PRN 09/07/24 Anxiety/Restlessness #0 tabs metoprolol tartrate 25 mg tablet 25 mg PO BID #0 tabs 09/07/24 midodrine 5 mg tablet 5 mg PO TID PRN SBP<90 #0 tabs 09/07/24 nicotine (polacrilex) 2 mg gum 2 mg buccal Q2H PRN Nicotine 09/07/24 Cravings #0 ea thiamine mononitrate (vit B1) 100 100 mg PO DAILY #0 tabs 09/07/24 mg tablet zolpidem 5 mg tablet 5 mg PO BEDTIME PRN Insomnia #0 09/07/24 tabs Allergies Allergy/AdvReac Type Severity Reaction Status Date / Time No Known Allergies (No Known Allergy Verified 09/23/24 00:09 Allergies*) Review of Systems Review of Systems: Yes all other systems are reviewed and are negative [facility] Family History Family History Mother Lung cancer Social History Social History Household Members: Family and Children Housing: House Do you presently have visiting nurse or other home services: No Alcohol intake: current Alcohol intake frequency: 3 or more drinks per day Alcohol type: hard liquor Patient Tobacco Use Status: Current everyday Tobacco user Tobacco use type: Cigarette Cigarette Packs Per Day: 0.5 Cigarettes Per Day: 10.0 Smoked in Last 30 Days: No Use of substances other than those prescribed or required for medical reasons: No Advance Directives: No Advance Directives Information Provided: Yes service: No Physical Exam ED Vital Signs: Vital Signs - 24 hr 09/23/24 00:06 09/23/24 00:25 09/23/24 02:18 Temperature 98.2 F 97.6 F Pulse Rate 75 72 78 Respiratory Rate 18 16 Blood Pressure 117/54 L 113/57 L 131/68 Pulse Oximetry 88 L 95 Oxygen Delivery Method Room Air Nasal Cannula Oxygen Flow Rate 2 09/23/24 02:18 09/23/24 02:18 09/23/24 02:19 Temperature 97.9 F Pulse Rate 85 89 89 Respiratory Rate 18 Blood Pressure 120/65 118/62 118/62 Pulse Oximetry 95 Oxygen Delivery Method Nasal Cannula Oxygen Flow Rate 2 09/23/24 04:27 Temperature 97.9 F Pulse Rate 89 Respiratory Rate 18 Blood Pressure 118/62 Pulse Oximetry 95 Oxygen Delivery Method Nasal Cannula Oxygen Flow Rate 2 BMI result Body Mass Index 17.1 Appearance: Alert. Oriented X3. No acute distress. Eyes: No pallor or icterus ENT: Pharynx normal. Oral Mucosa moist Neck: Normal inspection. Neck supple. CVS: Normal heart rate and rhythm. Pulses normal. Respiratory: No respiratory distress. Equal air entry bilateral, no wheezing/rales/rhonchi Abdomen: Soft and nontender. Bowel sounds are present, no mass palpable, no CVA tenderness Skin: Skin warm and dry. Normal skin color. Normal skin turgor. Extremities: No lower extremity edema. No calf tenderness Neuro: Oriented X 3. No motor deficit. No sensory deficit.No cerebellar signs , cranial nerves II-XII intact Medical Decision Making Medical Decision Making MDM Narrative: Patient with increased weakness orthostatic was normal transient low blood pressure at home etiology not clear patient feeling much better during stay in the ER labs are stable no orthostatic will discharge patient home with family Admission/Observation Consideration of admission/observation: Escalation of care including admission/observation considered Lab Data 09/23/24 01:38 09/23/24 01:38 Labs: Lab Results 09/23/24 09/23/24 Range/Units 01:38 01:42 WBC 8.8 (4.8-10.8) X10*3/uL RBC 2.96 L (4.20-5.50) X10*6/uL Hgb 10.1 L (12.0-16.0) g/dl Hct 29.0 L D (37.0-47.0) % MCV 98.0 (80.0-98.0) fL MCH 34.1 H (27.0-33.0) pg MCHC 34.8 (31.0-35.0) g/dl RDW 12.9 (11.0-16.0) % Plt Count 284 (160-400) X10*3/uL MPV 9.0 L (9.4-12.3) fL Immature Gran % (Auto) 0.6 H (0.0-0.4) % Neut % (Auto) 48.5 (45-73) % Lymph % (Auto) 19.6 L (20-40) % [place] % (Auto) 24.7 H (2-11) % Eos % (Auto) 5.6 H (0-4) % Baso % (Auto) 1.0 (0-2) % Lymph # (Auto) 1.7 (1.2-4.9) X10*3/uL [place] # (Auto) 2.2 H (0.1-1.2) X10*3/uL Eos # (Auto) 0.5 H (0.0-0.4) X10*3/uL Baso # (Auto) 0.1 (0.0-0.2) X10*3/uL Abs Immat Gran (auto) 0.05 H (0.00-0.03) X10*3/uL Absolute Neuts (auto) 4.3 (2.0-8.3) x10*3/uL Absolute Nucleated RBC 0.000 (0.0-0.012) X10*3/uL Nucleated RBC % (auto) 0.0 (0.0-0.2) /100WBC Smear Tech's Comments VERIFIED VBG pH 7.38 (7.32-7.43) VBG pCO2 49 mmHg VBG pO2 107 mmHg VBG HCO3 30 H (22-26) mmol/L VBG O2 Saturation 100.0 % VBG Base Excess 4.4 mmol/L Sodium 139 (135-145) mmol/L Potassium 3.3 D (3.3-5.1) mmol/L Chloride 107 (96-108) mmol/L Carbon Dioxide 24 (22-29) mmol/L Anion Gap 11 L (12-20) BUN 20 H (9-16) mg/dL Creatinine 0.60 (0.5-1.4) mg/dL Estim Creat Clear Calc 53.4 Estimated GFR > 60 Random Glucose 96 (60-115) mg/dL Calcium 8.8 D (8.4-10.2) mg/dL Magnesium 1.7 (1.6-2.6) mg/dL Total Bilirubin 0.2 (0.0-1.0) mg/dL AST 29 (5-31) U/L ALT 21 (0-31) U/L Alkaline Phosphatase 59 (39-117) U/L Total Protein 5.6 L (6.5-8.0) g/dL Albumin 3.3 L (3.5-5.0) g/dL TSH 1.53 (0.32-4.0) uIU/mL Discharge Plan Discharge Clinical Impression: Weakness Patient Disposition: Home, Self-Care Instructions: Weakness (ED) Additional Instructions: Drink plenty of fluids Follow with your PCP if needed Take medication as prescribed Your blood workup essentially stable Prescriptions: No Action levothyroxine 88 mcg tablet 88 mcg PO DAILY@0600 ergocalciferol (vitamin D2) 1,250 mcg (50,000 unit) capsule 1,250 mcg PO Q14D Rx Instructions: Taken every 2 weeks on . albuterol sulfate 90 mcg/actuation HFA aerosol inhaler 2 puff inhalation Q4-6H PRN (Reason: Shortness Of Breath Or Wheezing) acetaminophen [Tylenol] 325 mg Tablet 650 mg PO Q4H PRN (Reason: Pain) nicotine (polacrilex) 2 mg Gum 2 mg buccal Q2H PRN (Reason: Nicotine Cravings) Qty: 0 0RF azithromycin 500 mg Tablet 500 mg PO Q24H 4 Days Qty: 0 0RF atorvastatin 40 mg Tablet 40 mg PO BEDTIME Qty: 0 0RF aspirin 81 mg Tablet,Chewable 81 mg PO DAILY Qty: 90 0RF metoprolol tartrate 25 mg Tablet 25 mg PO BID Qty: 0 0RF Protocol: Hold for SBP/HR < HOLD for SBP < : 90 HOLD for HR < : 60 hydroxyzine HCl 10 mg Tablet 10 mg PO Q6H PRN (Reason: Anxiety/Restlessness) Qty: 0 0RF zolpidem 5 mg Tablet 5 mg PO BEDTIME PRN (Reason: Insomnia) Qty: 0 0RF thiamine mononitrate (vit B1) 100 mg Tablet 100 mg PO DAILY Qty: 0 0RF cefuroxime axetil 500 mg tablet 500 mg PO BID Qty: 10 0RF midodrine 5 mg Tablet 5 mg PO TID PRN (Reason: SBP<90) Qty: 0 0RF Interventions: ED Discharge Assessment Last Done: 09/23/24 04:27 Discharge Date/Time: 09/23/24 04:27 Print Language: Botswanan
[2024-09-23 01:43] LABS: Basophils Absolute Auto 0.1 X10*3/uL (0.0-0.2); Eosinophils Absolute Auto 0.5 X10*3/uL (0.0-0.4); Eosinophils Percent Auto 5.6 % (0-4); Hemoglobin 10.1 g/dl (12.0-16.0); Imm Gran Abs Auto 0.05 X10*3/uL (0.00-0.03); Imm Gran Pct Auto 0.6 % (0.0-0.4); Lymphocytes Absolute Auto 1.7 X10*3/uL (1.2-4.9); Lymphocytes Percent Auto 19.6 % (20-40); MANUAL DIFF FLAG SCAN; Mean Corpuscular HGB Conc 34.8 g/dl (31.0-35.0); Mean Corpuscular Hemoglobin 34.1 pg (27.0-33.0); Monocytes Absolute Auto 2.2 X10*3/uL (0.1-1.2); Monocytes Percent Auto 24.7 % (2-11); Neutrophils Absolute Auto 4.3 x10*3/uL (2.0-8.3); Neutrophils Percent Auto 48.5 % (45-73); Platelet Count 284 X10*3/uL (160-400); Red Blood Count 2.96 X10*6/uL (4.20-5.50); Red Cell Distribution Width 12.9 % (11.0-16.0); SCAN SMEAR FLAG 1; White Blood Count 8.8 X10*3/uL (4.8-10.8)
[2024-09-23 01:46] LABS: Venous Blood Gas Refer to POC result
[2024-09-23 01:47] LABS: VBG Base Excess 4.4 mmol/L; VBG HCO3 30 mmol/L (22-26); VBG pCO2 49 mmHg; VBG pH 7.38 (7.32-7.43); VBG pO2 107 mmHg
[2024-09-23 02:05] LABS: SLIDE REVIEW VERIFIED
[2024-09-23 02:06] LABS: Alanine Aminotransferase 21 U/L (0-31); Albumin Level 3.3 g/dL (3.5-5.0); Alkaline Phosphatase 59 U/L (39-117); Anion Gap 11 (12-20); Aspartate Amino Transferase 29 U/L (5-31); Bilirubin Total 0.2 mg/dL (0.0-1.0); Blood Urea Nitrogen 20 mg/dL (9-16); Calcium 8.8 mg/dL (8.4-10.2); Carbon Dioxide 24 mmol/L (22-29); Chloride 107 mmol/L (96-108); Creatinine Clr Calc Pharmacy 53.4; Estimated Glomerular Filt Rate > 60; Glucose Random 96 mg/dL (60-115); Magnesium 1.7 mg/dL (1.6-2.6); Potassium 3.3 mmol/L (3.3-5.1); Sodium 139 mmol/L (135-145); Total Protein 5.6 g/dL (6.5-8.0)
[2024-09-23 02:18] VITALS: BP 118/62; BP 120/65; BP 131/68; PULSE 78; PULSE 85; PULSE 89
[2024-09-23 02:19] VITALS: BP 118/62; PULSE 89; RESP 18; TEMP 36.6; O2SAT 95
[2024-09-23 02:20] LABS: TSH reflex Free T4 1.53 uIU/mL (0.32-4.0)
[2024-09-23 04:27] VITALS: BP 118/62; PULSE 89; RESP 18; TEMP 36.6; O2SAT 95
== END 2024-09-23 04:27 | disposition home or self-care (01) ==
PROVIDERS: Emergency Provider Internal Medicine; PCP Internal Medicine
DX: R53.1 Weakness (principal); I10 Essential (primary) hypertension; E03.9 Hypothyroidism, unspecified; J44.9 Chronic obstructive pulmonary disease, unspecified; Z99.81 Dependence on supplemental oxygen
CPT/HCPCS: 36415; 80053; 82803; 83735; 84443; 85025; 99283; 99284

== ENCOUNTER 2024-11-29 10:17 | Emergency (ER) | payer OTHER, SELFPAY ==
--- NOTE | ~2024-11-29 | XR_ITS ---
EXAMINATION: XR CHEST CLINICAL INFORMATION: productive cough COMPARISON: September 01, 2024 TECHNIQUE: 2 views of the chest were obtained. FINDINGS: The lungs are hyperexpanded with coarse markings. Heart size is within normal limits. There is calcification of the mitral annulus. There are changes from kyphoplasty at T7 and chronic vertebral plana at T10. Mild S-shaped scoliosis is present. XR/XR chest 2V IMPRESSION: Hyperexpanded lungs, no acute disease. Electronically signed by: Corby Faye MD 11/29/2024 11:15 AM EDT
[2024-11-29 10:26] VITALS: BP 121/58; PULSE 75; RESP 22; TEMP 37; O2SAT 94; BMI 16.4
--- NOTE | 2024-11-29 10:35 | ECG_ITS ---
Test Reason : sob Blood Pressure : */* mmHG Vent. Rate : 61 BPM Atrial Rate : 61 BPM P-R Int : 126 ms QRS Dur : 126 ms QT Int : 426 ms P-R-T Axes : 68 60 48 degrees QTcB Int : 428 ms Normal sinus rhythm Right bundle branch block Abnormal ECG When compared with ECG of 04-Sep-2024 04:32, No significant change was found Referred By: Heidy Gonzalez Electronically Signed By: Jw Salcido
--- NOTE | 2024-11-29 10:35 | ED.GENADULT ---
HPI - General Adult General Chief complaint: Dyspnea Stated complaint: diff breathing Time Seen by Provider: 11/29/24 14:40 History of Present Illness ED Provider: Brian Collins MD HPI narrative: 74-year-old female with a history of COPD extensive smoking history baseline 2 L nasal cannula at home slight increased phlegm production with cough mild dyspnea on exertion occasional prn nebulized albuterol at home. Denies chest pain to me. She does have coronary disease history of chronic RCA occlusion and LAD disease Related Data Home Medications ?Medication ?Instructions ?Recorded ?Confirmed acetaminophen 325 mg tablet 650 mg PO Q4H PRN Pain 08/29/24 08/29/24 (Tylenol) albuterol sulfate 90 mcg/actuation 2 puff inhalation Q4-6H PRN 08/29/24 08/29/24 aerosol inhaler Shortness Of Breath Or Wheezing ergocalciferol (vitamin D2) 1,250 1,250 mcg PO Q14D 08/29/24 08/29/24 mcg (50,000 unit) capsule levothyroxine 88 mcg tablet 88 mcg PO DAILY@0600 08/29/24 08/29/24 Previous Rx's ?Medication ?Instructions ?Recorded aspirin 81 mg chewable tablet 81 mg PO DAILY #90 tabs 09/07/24 atorvastatin 40 mg tablet 40 mg PO BEDTIME #0 tabs 09/07/24 azithromycin 500 mg tablet 500 mg PO Q24H 4 days #0 tabs 09/07/24 cefuroxime axetil 500 mg tablet 500 mg PO BID #10 tabs 09/07/24 hydroxyzine HCl 10 mg tablet 10 mg PO Q6H PRN 09/07/24 Anxiety/Restlessness #0 tabs metoprolol tartrate 25 mg tablet 25 mg PO BID #0 tabs 09/07/24 midodrine 5 mg tablet 5 mg PO TID PRN SBP<90 #0 tabs 09/07/24 nicotine (polacrilex) 2 mg gum 2 mg buccal Q2H PRN Nicotine 09/07/24 Cravings #0 ea thiamine mononitrate (vit B1) 100 100 mg PO DAILY #0 tabs 09/07/24 mg tablet zolpidem 5 mg tablet 5 mg PO BEDTIME PRN Insomnia #0 09/07/24 tabs prednisone 50 mg tablet 50 mg PO DAILY 4 days #4 tabs 11/29/24 Allergies Allergy/AdvReac Type Severity Reaction Status Date / Time No Known Allergies (No Known Allergy Verified 11/29/24 10:26 Allergies*) [facility] Family History Family History Mother Lung cancer Social History Social History Household Members: Family and Children Housing: House Do you presently have visiting nurse or other home services: No Alcohol intake: current Alcohol intake frequency: 3 or more drinks per day Alcohol type: hard liquor Patient Tobacco Use Status: Current everyday Tobacco user Tobacco use type: Cigarette Cigarette Packs Per Day: 0.5 Cigarettes Per Day: 10.0 Smoked in Last 30 Days: No Use of substances other than those prescribed or required for medical reasons: No Advance Directives: No Advance Directives Information Provided: Yes service: No Physical Exam ED Exam Exam: EXAM: Gen: Alert, thin, frail, pink puffer, scant expiratory wheeze. No significant distress or accessory muscle use speaking full sentences Head: Atraumatic Eyes: Anicteric, Normal conjunctiva. ENT: Moist mucosa, no pallor. ? Neck: Supple. Skin: ?No observable rash or bruising on exposed or examined skin Respiratory: Scant wheeze. No distress Cardiovascular: Regular rate and rhythm. No murmurs or rub. Well perfused periphery, warm extremities. No edema. ? Abdominal: No focal tenderness. Soft, no objective distension. No palpable masses or obvious organomegaly. ?No guarding, no rebound tenderness or other peritoneal findings. : No flank tenderness. Neuro: Alert. Gross movement of all extremities intact. ? Psych: Calm. Cooperative. MSK: No grossly visible deformity. Vital signs: See flowsheet Vital Signs: Vital Signs - 24 hr 11/29/24 14:28 11/29/24 14:35 11/29/24 17:20 Temperature 97.4 F Pulse Rate 84 91 84 Respiratory Rate 14 21 H 24 H Blood Pressure 104/68 123/42 L Pulse Oximetry 94 97 Oxygen Delivery Method Nasal Cannula Nasal Cannula Oxygen Flow Rate 2 2 11/29/24 18:23 11/29/24 18:25 Temperature 0 F L Pulse Rate 95 95 Respiratory Rate 20 20 Blood Pressure 146/50 H 146/50 H Pulse Oximetry 97 97 Oxygen Delivery Method Room Air Room Air Oxygen Flow Rate BMI result Body Mass Index 16.4 Course Course Course Narrative: This is a rapid medical exam performed by Allie Gonzalez NP: Additional HPI, ROS, PE not included below will be deferred to primary provider. Patient is a 74-year-old female presenting with 2 days of dyspnea, productive cough, palpitations. Wears 2L 02 at baseline. Significant cardiac history. Plan: labs, EKG, CXR, viral swabs Medications Administered Discontinued Medications Generic Name Dose Route Start Last Admin Trade Name Freq PRN Reason Stop Dose Admin Albuterol Sulfate 2.5 mg/ 0 mg 11/29/24 17:16 11/29/24 17:19 Albuterol/Ipratropium 3 ml INHALE 11/29/24 17:17 1 dose ONCE ONE Administration Procedures Procedure Narrative Procedure Narrative: I was asked by the primary physician covering this patient to evaluate the patient's shoulder and right wrist for swelling stiffness in suspected effusion. See the procedure notes documenting the related joint ultrasounds below and the joint aspiration note that I performed. Otherwise I was not involved in the patient's care. PROCEDURE NOTE Procedure: Arthrocentesis Performed by:Brian Collins MD Indication: rule out septic joint [place] Protocol: a time out was performed and the correct patient and site were verified ? The right shoulder joint was prepped and draped in proper sterile fashion. The overlying skin was anesthetized with 5 ml of 1% lidocaine.? A 18 needle was used to aspirate fluid from the joint using appropriate anatomic landmarks. And static ultrasound guidance fluid was obtained from the joint. Approximately 10 milliliters of fluid was obtained. The fluid was then sent to the lab for appropriate studies. The patient tolerated the procedure well, was bandaged, and had no complications. ? Post-Procedure Diagnosis: same as indication Complications: none Estimated Blood Loss:? 0 __ EMERGENCY ULTRASOUND INTERPRETATION- Limited Musculoskeletal [This study was ordered, performed, and interpreted by myself. The study reveals: Impression: Right shoulder effusion, large and complex. Right dorsal extensor tendon edema inflammatory favored over purulence/infectious [Indication: Right shoulder swelling Joint Localization for fluid (anechoic): Right shoulder joint with large complex effusion Muscle: Tendon: Additional lesion, right wrist dorsally with focal swelling overlying what appears to be an edematous extensor tendon right over the point of maximal swelling erythema and tenderness on the patient's wrist Bone: Other: Performed by: Brian Collins MD Images were stored ] Medical Decision Making Medical Decision Making MDM Narrative: Medical Decision Making: [age] female with COPD CAD progressive dyspnea. 2 L nasal cannula baseline she is without distress and not hypoxic, when I am at the bedside 93-94%. Scant wheezing . No hemoptysis or fever no clinical signs of DVT. Denies chest pain to me doubt ACS. Probably COPD exacerbation/bronchitis. Chest film shows hyperexpanded lungs no pneumonia effusion or pneumothorax Preliminary Favored Differential Diagnosis: Exacerbation of COPD, bronchitis, pneumonia, effusion, pneumothorax among additional considered etiologies Testing Interpreted Independently: Sinus rhythm rate 61 QTC 428, right bundle-branch block unchanged from previous no acute ischemic changes Radiology or Lab testing Results Reviewed: ?No infiltrate on chest x-ray Consults: ?See below for details Independent Historians/External Chart Reviews: ?See below for details Social Determinants of Health Impacting MDM/Planning: ?See below for details Lab Data MDM Lab Attestation statement: I reviewed the patient's lab results. 11/29/24 11:00 11/29/24 11:00 Labs: Lab Results 11/29/24 11/29/24 11/29/24 Range/Units 10:52 11:00 11:08 WBC 7.3 (4.8-10.8) X10*3/uL RBC 3.03 L (4.20-5.50) X10*6/uL Hgb 9.5 L (12.0-16.0) g/dl Hct 28.9 L (37.0-47.0) % MCV 95.4 (80.0-98.0) fL MCH 31.4 (27.0-33.0) pg MCHC 32.9 (31.0-35.0) g/dl RDW 12.6 (11.0-16.0) % Plt Count 226 (160-400) X10*3/uL MPV 8.6 L (9.4-12.3) fL Immature Gran % (Auto) 0.4 (0.0-0.4) % Neut % (Auto) 45.8 (45-73) % Lymph % (Auto) 27.4 (20-40) % [place] % (Auto) 18.7 H (2-11) % Eos % (Auto) 6.6 H (0-4) % Baso % (Auto) 1.1 (0-2) % Lymph # (Auto) 2.0 (1.2-4.9) X10*3/uL [place] # (Auto) 1.4 H (0.1-1.2) X10*3/uL Eos # (Auto) 0.5 H (0.0-0.4) X10*3/uL Baso # (Auto) 0.1 (0.0-0.2) X10*3/uL Abs Immat Gran (auto) 0.03 (0.00-0.03) X10*3/uL Absolute Neuts (auto) 3.4 (2.0-8.3) x10*3/uL Absolute Nucleated RBC 0.000 (0.0-0.012) X10*3/uL Nucleated RBC % (auto) 0.0 (0.0-0.2) /100WBC PT 11.1 (10.9-12.4) SEC INR 1.0 (0.9-1.1) VBG pH 7.35 (7.32-7.43) VBG pCO2 51 mmHg VBG pO2 42 mmHg VBG HCO3 29 H (22-26) mmol/L VBG O2 Saturation 57.0 % VBG Base Excess 3.0 mmol/L Sodium 141 (135-145) mmol/L Potassium 4.8 D (3.3-5.1) mmol/L Chloride 108 (96-108) mmol/L Carbon Dioxide 28 (22-29) mmol/L Anion Gap 10 L (12-20) BUN 25 H (9-16) mg/dL Creatinine 0.66 (0.5-1.4) mg/dL Estim Creat Clear Calc 49.6 Estimated GFR > 60 Random Glucose 82 (60-115) mg/dL Calcium 9.6 D (8.4-10.2) mg/dL Total Bilirubin 0.4 (0.0-1.0) mg/dL AST 38 H (5-31) U/L ALT 43 H (0-31) U/L Alkaline Phosphatase 99 (39-117) U/L Troponin I High Sens 2.7 D (<3.5-17.0) ng/L B-Natriuretic Peptide 208 H (<100) pg/mL Total Protein 6.7 (6.5-8.0) g/dL Albumin 4.1 (3.5-5.0) g/dL COVID-19 (ADELINE) Negative (Negative) COVID-19 Clin Com See Note Influenza Type A (KEYON) Negative (Negative) Influenza Type B (KEYON) Negative (Negative) Influenza A & B Note See Note Discharge Plan Discharge Clinical Impression: Acute exacerbation of chronic obstructive airways disease Patient Disposition: Home, Self-Care Instructions: COPD (Chronic Obstructive Pulmonary Disease) (DC) Additional Instructions: DISCHARGE DIAGNOSES: Exacerbation of COPD HISTORY OF PRESENTATION: Cough and mucus production difficulty breathing EMERGENCY DEPARTMENT COURSE,TESTS, TREATMENTS: While in the ED today you had an x-ray of the chest blood work EKG all reassuring DISCHARGE MEDICATIONS: ?[We have made no changes to your regular medication regimen] we have added steroid for several days FOLLOW-UP: ?Call your primary or general physician soon as possible to discuss your symptoms, your ED visit and to discuss follow up plans Call your produce weigher INSTRUCTIONS ?& RETURN PRECAUTIONS: If any symptoms change first call your primary physician, if it is after-hours your primary doctors office should have a provider electronics parts sales representative you can speak with. If the symptoms are severe or very concerning to you then call 911 or return to the ED. Brian Collins MD Emergency Physician [facility] Prescriptions: New prednisone 50 mg tablet 50 mg PO DAILY 4 Days Qty: 4 0RF No Action levothyroxine 88 mcg tablet 88 mcg PO DAILY@0600 ergocalciferol (vitamin D2) 1,250 mcg (50,000 unit) capsule 1,250 mcg PO Q14D Rx Instructions: Taken every 2 weeks on . albuterol sulfate 90 mcg/actuation HFA aerosol inhaler 2 puff inhalation Q4-6H PRN (Reason: Shortness Of Breath Or Wheezing) acetaminophen [Tylenol] 325 mg Tablet 650 mg PO Q4H PRN (Reason: Pain) nicotine (polacrilex) 2 mg Gum 2 mg buccal Q2H PRN (Reason: Nicotine Cravings) Qty: 0 0RF azithromycin 500 mg Tablet 500 mg PO Q24H 4 Days Qty: 0 0RF atorvastatin 40 mg Tablet 40 mg PO BEDTIME Qty: 0 0RF aspirin 81 mg Tablet,Chewable 81 mg PO DAILY Qty: 90 0RF metoprolol tartrate 25 mg Tablet 25 mg PO BID Qty: 0 0RF Protocol: Hold for SBP/HR < HOLD for SBP < : 90 HOLD for HR < : 60 hydroxyzine HCl 10 mg Tablet 10 mg PO Q6H PRN (Reason: Anxiety/Restlessness) Qty: 0 0RF zolpidem 5 mg Tablet 5 mg PO BEDTIME PRN (Reason: Insomnia) Qty: 0 0RF thiamine mononitrate (vit B1) 100 mg Tablet 100 mg PO DAILY Qty: 0 0RF cefuroxime axetil 500 mg tablet 500 mg PO BID Qty: 10 0RF midodrine 5 mg Tablet 5 mg PO TID PRN (Reason: SBP<90) Qty: 0 0RF Interventions: ED Discharge Assessment Last Done: 11/29/24 18:25 Discharge Date/Time: 11/29/24 18:30 Print Language: Guinean
[2024-11-29 11:05] LABS: MANUAL DIFF FLAG NO
[2024-11-29 11:09] LABS: Hematocrit 28.9 % (37.0-47.0); Hemoglobin 9.5 g/dl (12.0-16.0); Imm Gran Abs Auto 0.03 X10*3/uL (0.00-0.03); Imm Gran Pct Auto 0.4 % (0.0-0.4); Lymphocytes Absolute Auto 2.0 X10*3/uL (1.2-4.9); Mean Corpuscular HGB Conc 32.9 g/dl (31.0-35.0); Mean Corpuscular Hemoglobin 31.4 pg (27.0-33.0); Mean Corpuscular Volume 95.4 fL (80.0-98.0); NRBC Abs Auto 0.000 X10*3/uL (0.0-0.012); NRBC Pct Auto 0.0 /100WBC (0.0-0.2); Platelet Count 226 X10*3/uL (160-400); Red Blood Count 3.03 X10*6/uL (4.20-5.50); White Blood Count 7.3 X10*3/uL (4.8-10.8)
[2024-11-29 11:11] LABS: VBG HCO3 29 mmol/L (22-26); VBG O2 % Saturation 57.0 %
[2024-11-29 11:13] LABS: INTERNATIONAL NORM RATIO 1.0 (0.9-1.1); Prothrombin Time 11.1 SEC (10.9-12.4)
[2024-11-29 11:21] LABS: Venous Blood Gas Refer to POC result
[2024-11-29 11:28] LABS: IDNOW Serial# 55D5AD1C
[2024-11-29 11:29] LABS: COVID-19 Test Negative (Negative)
[2024-11-29 11:29] LABS: Alanine Aminotransferase 43 U/L (0-31); Albumin Level 4.1 g/dL (3.5-5.0); Alkaline Phosphatase 99 U/L (39-117); Anion Gap 10 (12-20); Aspartate Amino Transferase 38 U/L (5-31); Blood Urea Nitrogen 25 mg/dL (9-16); Calcium 9.6 mg/dL (8.4-10.2); Carbon Dioxide 28 mmol/L (22-29); Chloride 108 mmol/L (96-108); Creatinine Clr Calc Pharmacy 49.6; Estimated Glomerular Filt Rate > 60; Potassium 4.8 mmol/L (3.3-5.1); Sodium 141 mmol/L (135-145); Total Protein 6.7 g/dL (6.5-8.0)
[2024-11-29 11:30] LABS: IDNOW Serial# 58CA691E
[2024-11-29 11:31] LABS: Influenza B2 Negative (Negative)
[2024-11-29 11:34] LABS: B Type Natriuretic Peptide 208 pg/mL (<100)
[2024-11-29 11:36] LABS: Troponin-I High Sensitivity 2.7 ng/L (<3.5-17.0)
[2024-11-29 14:28] VITALS: BP 104/68; PULSE 84; RESP 14; TEMP 36.3; O2SAT 94
[2024-11-29 14:35] VITALS: BP 123/42; PULSE 91; RESP 21; O2SAT 97
--- NOTE | 2024-11-29 14:41 | PC.NURSE ---
74 F presents to ED with weakness, SOB, cough, and palpitations for a couple of days. Pt does breathing treatments at home but has needed them more often lately. RR even but a little shallow, breath sounds clear. A+Ox4, calm, cooperative. Pt denies any CP or pain at this time.
--- OUTSIDE RECORDS SUMMARY | 2024-11-29 15:27 | XMS_ITS | Encounter Summary ---
Author Organization [facility] Address [address] [place] [address] Care Team Providers Care Quality Review Trainer Name Role Phone Sahara Callejas MD Primary Care Provider [phone] Encounter Details Date Type Department Care Team (Late Contact Info) Description 09/10/2024 Lab Requisition [facility] - Main Lab [address] [facility] [place] [address] Jeannette Samuel MD [address] [place] [id number] Abnormal weight loss; Alcohol use, unspecified with unspecified alcohol-induced disorder (CMS/HCC V24); Unspecified protein-calorie malnutrition (CMS/HCC V24) Social History Tobacco Use Types Packs/Day Years Used Date Smoking Tobacco: Every Day Cigarettes 1 5 Started: 07/14/2016; Last attempted to quit: 07/06/2021 Smokeless Tobacco: Never Alcohol Use Standard Drinks/Week Comments No 0 (1 standard drink = 0.6 oz pur e alcohol) Comments No Sex and Gender Information Value Date Recorded Sex Assigned at Not on file Legal Sex Female 9:42 PM EST Gender Identity Not on file Sexual Orientation Not on file documented as of this encounter Plan of Treatment Upcoming Encounters Date Type Department Care Team (Late st Contact Info) Description 12/25/2024 3:00 PM EDT Office Visit Adult Medicine [address] [address] Ne Velásquez [place] [address] [place] [address] documented as of this encounter Procedures Procedure Name Priority Date/Time Associated Diagnosis Comments COMPLETE BLOOD COUNT Routine 09/10/2024 7:22 AM EDT Abnormal weight loss Alcohol use, unspecified with unspecified alcohol-induced disorder (CMS/HCC V24) Unspecified protein-calorie malnutrition (CMS/HCC V24) THYROID STIMULATING HORMONE Routine 09/10/2024 7:22 AM EDT Abnormal weight loss Alcohol use, unspecified with unspecified alcohol-induced disorder (CMS/HCC V24) Unspecified protein-calorie malnutrition (CMS/HCC V24) MAGNESIUM Routine 09/10/2024 7:22 AM EDT Abnormal weight loss Alcohol use, unspecified with unspecified alcohol-induced disorder (CMS/HCC V24) Unspecified protein-calorie malnutrition (CMS/HCC V24) COMPREHENSIVE METABOLIC PANEL Routine 09/10/2024 7:22 AM EDT Abnormal weight loss Alcohol use, unspecified with unspecified alcohol-induced disorder (CMS/HCC V24) Unspecified protein-calorie malnutrition (CMS/HCC V24) documented in this encounter Results * Magnesium (09/10/2024 7:22 AM EDT) Pathologist [facility] Magnesium 1.9 1.9 - 2.6 mg/dL LAB CHEMISTRY METHOD 09/10/2024 9:50 AM EDT [facility] Blood Venous blood specimen / Unknown Venipuncture / Unknown 09/10/2024 7:22 AM EDT 09/10/2024 8:56 AM EDT us Jeannette Samuel MD LAB BLOOD ORDERABLES Final Resu lt [facility] [address] [place] [address], * Thyroid stimulating hormone (09/10/2024 7:22 AM EDT) Pathologist [facility] TSH 0.76 0.40 - 4.00 mcIU/mL LAB CHEMISTRY METHOD 09/10/2024 11:09 AM [facility] Blood Venous blood specimen / Unknown Venipuncture / Unknown 09/10/2024 7:22 AM EDT 09/10/2024 8:56 AM EDT us Jeannette Samuel MD LAB BLOOD ORDERABLES Final Resu lt [facility] [address] [place] [address], [place] [phone] * (ABNORMAL) Comprehensive metabolic panel (09/10/2024 7:22 AM EDT) Sodium 135 133 - 145 mmol/L LAB CHEMISTRY METHOD 09/10/2024 9:50 AM [facility] Potassium 4.4 3.5 - 5.5 mmol/L LAB CHEMISTRY METHOD 09/10/2024 9:50 AM [facility] Chloride 96 96 - 110 mmol/L LAB CHEMISTRY METHOD 09/10/2024 9:50 AM [facility] CO2 33(H) 21 - 32 mmol/L LAB CHEMISTRY METHOD 09/10/2024 9:50 AM [facility] Anion Gap 6 3 - 11 LAB CHEMISTRY METHOD 09/10/2024 9:50 AM [facility] Glucose 70 70 - 100 mg/dL LAB CHEMISTRY METHOD 09/10/2024 9:50 AM [facility] BUN 15 5 - 25 mg/dL LAB CHEMISTRY METHOD 09/10/2024 9:50 AM [facility] Creatinine 0.50 0.50 - 1.10 mg/dL LAB CHEMISTRY METHOD 09/10/2024 9:50 AM [facility] eGFR 97 >=60 mL/min/1. 73m2 LAB CHEMISTRY METHOD 09/10/2024 9:50 AM [facility] Comment:Calculation based on the Chronic Kidney Disease Epidemiology Collaboration (CKD-EPI) equation refit without adjustment for race. BUN/Creatinine Ratio 30.0 LAB CHEMISTRY METHOD 09/10/2024 9:50 AM [facility] Calcium 9.6 8.5 - 10.5 mg/dL LAB CHEMISTRY METHOD 09/10/2024 9:50 AM [facility] AST (SGOT) 38 10 - 42 unit/L LAB CHEMISTRY METHOD 09/10/2024 9:50 AM [facility] ALT (SGPT) 25 10 - 60 unit/L LAB CHEMISTRY METHOD 09/10/2024 9:50 AM [facility] Alkaline Phosphatase 80 42 - 121 unit/L LAB CHEMISTRY METHOD 09/10/2024 9:50 AM [facility] Total Protein 5.8(L) 6.0 - 8.0 g/dL LAB CHEMISTRY METHOD 09/10/2024 9:50 AM [facility] Albumin 2.8(L) 3.2 - 5.0 g/dL LAB CHEMISTRY METHOD 09/10/2024 9:50 AM [facility] Total Bilirubin 0.3 0.0 - 1.4 mg/dL LAB CHEMISTRY METHOD 09/10/2024 9:50 AM [facility] Blood Venous blood specimen / Unknown Venipuncture / Unknown 09/10/2024 7:22 AM EDT 09/10/2024 8:56 AM EDT us Jeannette Samuel MD LAB BLOOD ORDERABLES Final Resu lt [facility] [address] [place] [address], * (ABNORMAL) Complete blood count (09/10/2024 7:22 AM EDT) WBC 5.2 4.8 - 10.8 K/mcL LAB HEMETOLOGY METHOD 09/10/2024 9:21 AM [facility] RBC 3.40(L) 3.80 - 4.80 M/mcL LAB HEMETOLOGY METHOD 09/10/2024 9:21 AM [facility] Hemoglobin 11.2(L) 11.5 - 16.0 g/dL LAB HEMETOLOGY METHOD 09/10/2024 9:21 AM [facility] Hematocrit 35.6 35.0 - 47.0 % LAB HEMETOLOGY METHOD 09/10/2024 9:21 AM [facility] MCV 105.0(H) 79.0 - 98.0 FL LAB HEMETOLOGY METHOD 09/10/2024 9:21 AM [facility] MCH 33.0(H) 27.0 - 32.0 pcg LAB HEMETOLOGY METHOD 09/10/2024 9:21 AM [facility] MCHC 31.5(L) 32.0 - 37.0 g/dL LAB HEMETOLOGY METHOD 09/10/2024 9:21 AM [facility] RDW 13.1 11.0 - 15.0 % LAB HEMETOLOGY METHOD 09/10/2024 9:21 AM [facility] Platelets 359 130 - 400 K/[facility] LAB HEMETOLOGY METHOD 09/10/2024 9:21 AM [facility] MPV 9.2 7.0 - 11.0 FL LAB HEMETOLOGY METHOD 09/10/2024 9:21 AM [facility] NRBC 0.0 <1.0 % LAB HEMETOLOGY METHOD 09/10/2024 9:21 AM [facility] NRBC Absolute 0.00 <0.10 K/[facility] LAB HEMETOLOGY METHOD 09/10/2024 9:21 AM EDT [facility] Blood Venous blood specimen / Unknown Venipuncture / Unknown 09/10/2024 7:22 AM EDT 09/10/2024 8:56 AM EDT us Jeannette Samuel MD LAB BLOOD ORDERABLES Final Resu lt [facility] [address] [place] [address], documented in this encounter Visit Diagnoses Diagnosis Abnormal weight loss Loss of weight Alcohol use, unspecified with unspecified alcohol-induced disorder (CMS/HCC V24) Unspecified protein-calorie malnutrition (CMS/HCC V24) Unspecified protein-calorie malnutrition documented in this encounter Care Teams Quality Review Trainer Relationship Specialty Start Date End Date Sahara Callejas MD [address] [place] [id number] PCP - General Internal Medicine 09/18/24 documented as of this encounter
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
--- OUTSIDE RECORDS SUMMARY | 2024-11-29 15:27 | XMS_ITS | Clinical Summary ---
Author Organization [facility] [address] [place] [address] [place] [phone] Phone Care Team Providers Care [employer] Name Role Phone Sahara Callejas MD Primary Care Provider [phone] Allergies No known active allergies Medications levothyroxine (SYNTHROID, LEVOTHROID) 88 mcg tablet Take 1 tablet (88 mcg total) by mouth 1 (one) time each day. Active umeclidinium (Incruse Ellipta) 62.5 mcg/actuation inhalation Inhale 1 Puff into the lungs daily. 0 Active acetaminophen (TYLENOL) 500 mg tablet Take 2 tablets (1,000 mg total) by mouth every 8 (eight) hours if needed for mild pain. Active aspirin 81 mg chewable tablet Chew 1 tablet (81 mg total) 1 (one) time each day. Active ipratropium-alb uteroL (DUONEB) 0.5-2.5 mg/3 mL nebulizer solution Take 3 mL by nebulization 3 (three) times a day. 5 Active albuterol HFA (PROAIR HFA ; PROVENTIL HFA ; VENTOLIN HFA) 90 mcg/actuation inhaler Inhale 2 puffs by mouth every 4 (four) hours if needed for wheezing or shortness of breath. 6.7 g 1 5 Active melatonin 10 mg tablet Take 1 tablet (10 mg total) by mouth at bedtime. 90 tablet 1 5 Active hydrOXYzine HCL (ATARAX) 10 mg tablet Take 1 tablet (10 mg total) by mouth every 8 (eight) hours if needed for anxiety. 270 tablet 5 Active midodrine (PROAMATINE) 5 mg tablet Take 1 tablet (5 mg total) by mouth 3 (three) times a day if needed (FOR BP less than 90). 90 tablet 5 Active carvediloL (COREG) 3.125 mg tablet Take 1 tablet (3.125 mg total) by mouth 2 (two) times a day with meals. Hold for BP <110 180 tablet 1 5 Active atorvastatin (LIPITOR) 40 mg tablet Take 1 tablet (40 mg total) by mouth at bedtime. 90 tablet 1 5 Active Active Problems Problem Noted Date Diagnosed Date Anxiety and depression 03/22/2024 COPD (chronic obstructive pu lmonary disease) ([facility]/HCC V24, CMS/HCC V28) 03/22/2024 Overview (03/22/2024): PFT from 08/2016 with moderate obstruction without bronchodilator response follows with pulmonary (Dr. Singh) s/p LDCT chest 02/2017 with irregular density recommended 3 month follow up. Repeat CT May stable. Last PFT 03/2020 Diastolic CHF (CMS/HCC V24, CMS/HCC V28) 024 Overview (03/22/2024): TTE from 06/2016 Hepatitis C 03/22/2024 Overview (03/22/2024): Viral load not detected, normal AST/ALT History of heroin abuse ([facility]/HCC V24, [facility]/HCC V2 8) 03/22/2024 Overview (03/22/2024): Last use 1975 Hypothyroid 03/22/2024 Overview (03/22/2024): US Apr 2012 shows no nodules, previous biopsy 01/03 negative for malignancy, consistent with hashimotos Lumbar back pain with radicu lopathy affecting left lower extremity 03/22/2024 Overview (03/22/2024): Has lumbar fusion in 1975, recent MRI from 10/2016 with DJD and disc space narrowing. Infrarenal abdominal aortic aneurysm (AAA) without rupture ([facility] V24) 01/19/2024 Lung nodule 08/05/2021 Overview (03/22/2024): Being followed by thoracic sugery, Abdominal aortic aneurysm (A AA) 3.0 cm to 5.0 cm in diameter in female ([facility] V24) 02/15/2019 Overview (03/22/2024): Seen on xray 02/14/19. Serial US recommended annually-per up to date guidelines. Size on 02/14/19 was 4.2 cm of the distal abominal aorta. HTN (hypertension) 02/15/2019 Gastroesophageal reflux disease without esophagi tis 05/01/2018 Deep venous thrombosis ([facility] V24, [facility] V28 ) 12/01/2017 Overview (03/22/2024): Provoked during hip surgery. Completed anticoagulation CKD (chronic kidney disease) stage 3, GFR 30-59 ml/min ([facility] V24, [facility] V28) 10/25/2017 Fractured femoral neck ([facility] V24, [facility] V28 ) 03/17/2017 Overview (03/22/2024): 02/2017, s/p mechanical fall, s/p ORIF follows with orthopedics FELISHA (obstructive sleep apnea) 09/22/2016 Overview (03/22/2024): Not compliant with CPAP can't afford SVT (supraventricular tachycardia) ([facility] V24) 09/22/2016 Overview (03/22/2024): S/p ablation, follows with EP, cardiology as an outpatient. Pathological fracture due to osteoporosis 2016 Overview (03/22/2024): H/o vertebral fx age 60, current tobacco use. On prolia, follows with endocrinology and rheumatology Vitamin D deficiency 08/30/2016 Overview (03/22/2024): On 2000 units daily Encounters Date Type Department Care Team Description 11/29/2024 Telephone Adult [address] [phone] Sahara Callejas MD 11/19/2024 Telephone Adult [address] [phone] Sahara Callejas MD 11/16/2024 Telephone Adult [address] [phone] Sahara Callejas MD 10/29/[address] [phone] Cassandra Rico MA 10/24/2024 Telephone Lung Screening Program [address] [phone] Estee Rao MA 10/01/2024 Nurse Triage [address] [phone] Cassandra Rico MA 09/26/2024 10:30 AM EDT Office Visit [address] [phone] Sahara Callejas MD NSTEMI (non-ST elevated myocardial infarction) (CMS/HCC V24, CMS/HCC V28) (Primary Dx); Pulmonary emphysema, unspecified emphysema type (CMS/HCC V24, CMS/HCC V28); Hypotension due to hypovolemia; Diarrhea, unspecified type; Weight loss; Hypokalemia; Hypomagnesemia; Acquired hypothyroidism; Alcohol use disorder; Tobacco use disorder 09/24/2024 Telephone Adult [address] [phone] Sahara Callejas MD 09/20/2024 Telephone Adult [address] [phone] Cassandra Rico MA 09/18/2024 Telephone Adult [facility] [address] [place] [phone] Sahara Callejas MD 09/10/2024 Lab Requisition [facility] - Main Lab [address] [facility] [place] [address] Jeannette Samuel MD Abnormal weight loss; Alcohol use, unspecified with unspecified alcohol-induced disorder ([facility] V24); Unspecified protein-calorie malnutrition ([facility] V24) 08/29/2024 4:30 PM EDT Office Visit [address] [phone] Sahara Callejas MD SVT (supraventricular tachycardia) ([facility] V24) (Primary Dx); Diarrhea, unspecified type; Left leg swelling; Weight loss from Last 3 Months Immunizations Name Administration Dates Next Due Influenza trivalent, 0.5mL ( Fluad) 65yo and older 01/04/2022,12/26/2017 Influenza trivalent, with pr eservative (Fluzone; Afluria) 6mo and older 12/26/2017,01/09/2015,06/12/2014,01/01,2010 [employer] SARS-CoV-2 COVID-19, mRNA, LNP-S, preservative free 08/24/2020,07/24/2020 Pneumococcal conjugate 13 va lent (Prevnar 13, PCV13) 2mo and older 06/12/2014 Pneumococcal polysaccharide 23 valent (Pneumovax 23) 2yo and older 08/25/2016,11/12/2010 Tdap Tetanus diptheria acell ular pertussis (Boostrix; Adacel) 7yo and older 11/25/2016,11/06/2009 Surgical History Surgery Date Site/Laterality Comments OTHER SURGICAL HISTORY 1975 PROCEDURE: [place] ARTHRODESIS POSTERIOR INTERBODY 1 NTRSPC LUMBAR OTHER SURGICAL HISTORY 1981 PROCEDURE: [place] ARTHRD PST/PSTLAT TQ 1NTRSPC CRV BELW C2 SEGMENT FEMUR FRACTURE SURGERY 02/25/2017 Left PROCEDURE: IL OPEN TX FEMORAL FRACTURE DISTAL MED/LAT CONDYLE; COMMENT: ORIF Medical History Medical History Date Comments Hypothyroid DX:Hypothyroid Anxiety and depression DX:Anxiet y and depression Diastolic CHF ([facility] V24, [facility] V28) DX:Diastolic CHF ([facility]); COMM ENT: TTE from 06/2016, grade II History of spinal fracture DX:Hi story of spinal fracture; COMMENT: thoracic spine Osteoporosis with fracture 08/30/2016 DX:Os teoporosis with fracture; COMMENT: H/o vertebral fx age 60, current tobacco use. On prolia, follows with endocrinology and rheumatology SVT (supraventricular tachyc ardia) ([facility] V24) 09/22/2016 DX:SVT (supraventricular tac hycardia) ([facility]); COMMENT: S/p ablation, follows with EP, cardiology as an outpatient. Vitamin D deficiency 08/30/2016 DX:Vitamin D deficiency; COMMENT: On 2000 units daily Hepatitis C DX:Hepatitis C; COMMENT: Viral load not detected, normal AST/ALT FELISHA (obstructive sleep apnea) 09/22/2016 DX :FELISHA (obstructive sleep apnea); COMMENT: Not compliant with CPAP can't afford Lumbar back pain with radicu lopathy affecting left lower extremity DX:Lumbar back pain wit h radiculopathy affecting left lower extremity; COMMENT: Has lumbar fusion in 1975 History of heroin abuse ([facility] V24, [facility] V28) DX:History of heroin abuse ( [facility]); COMMENT: Last use 1974 Fractured femoral neck ([facility] V24, [facility] V28) 03/17/2017 DX:Fractured femoral neck ([facility]); COMMENT: 02/2017, s/p mechanical fall, s/p ORIF follows with orthopedics Tobacco use DX:Tobacco use; COMMENT: Since age 17 age 67 quit 02/2017 COPD (chronic obstructive pu lmonary disease) ([facility] V24, [facility] V28) DX:COPD (chronic o bstructive pulmonary disease) ([facility]); COMMENT: PFT from 08/2016 with moderate obstruction without bronchodilator response follows with pulmonary (Dr. Singh) s/p LDCT chest 02/2017 with irregular density recommended 3 month follow up. Repeat CT May stable. Deep venous thrombosis ([facility] V24, [facility] V28) 12/01/2017 DX:Deep venous thrombosis ([facility]) Family History Medical History Relation Name Comments Diabetes Daughter Arthritis Mother Lung cancer Mother Osteoporosis Sister 1 twin Osteoporosis Sister 2 twin Other: spinal fracture Son Breast cancer Neg Hx Relation Name Status Comments Daughter Alive Father Mother Sister 1 twin Alive Sister 2 twin Alive Son Alive Social History Tobacco Use Types Packs/Day Years Used Date Smoking Tobacco: Every Day Cigarettes 1 5 Started: 07/14/2016; Last attempted to quit: 07/06/2021 Smokeless Tobacco: Never Tobacco Cessation:Ready to Q uit: Not Asked; Counseling Given: Not Answered Alcohol Use Standard Drinks/Week Comments No 0 (1 standard drink = 0.6 oz pur e alcohol) Comments No Sex and Gender Information Value Date Recorded Sex Assigned at Not on file Legal Sex Female 9:42 PM EST Gender Identity Not on file Sexual Orientation Not on file Obstetrics History Last Filed Vital Signs Vital Sign Reading Time Taken Comments Blood Pressure 122/68 09/26/2024 11:02 AM EDT Pulse 72 09/26/2024 11:02 AM EDT Temperature 36.6 C (97.8 F) 09/26/2024 11:02 AM EDT Respiratory Rate 18 09/26/2024 11:02 AM EDT Oxygen Saturation 94% 09/26/2024 11:02 AM EDT 2 percent Inhaled Oxygen Concentration - - Weight 41.7 kg (92 lb) 09/26/2024 11:02 AM EDT Height 154.9 cm (5' 1 ) 09/26/2024 11:02 AM EDT Body Mass Index 17.38 09/26/2024 11:02 AM EDT Plan of Treatment Upcoming Encounters Date Type Department Care Team (Late st Contact Info) Description 12/25/2024 3:00 PM EDT Office Visit Adult Medicine [address] [phone] Ne Velásquez PA [address] [place] [phone] Health Maintenance Due Date Last Done Comments Hepatitis A Vaccines (1 of 2 - Risk 2-dose series) 01/06/1967 Colorectal Cancer Screening: Stool Based Tests (FOBT/FIT) 03/06/2022 Falls Risk Assessment 03/06/2022 Social Influencers of Health Screening 03/06/2022 RSV Immunization Adult Patients (1 - 1-dose 75+ series) 01/06/2023 Depression Screening 03/28/2024 04/18/2023 Medicare Annual Wellness Visit 04/18/2024 04/18/2023 COVID-19 Vaccine ( season) 2024 08/24/2020, 08/14/2020, 07/24/2020 Influenza Vaccine (#1) 2024 , 12/26/2017, 12/26/2017, Additional history exists Hypertension/CHF/CAD Annual BMP Blood Test 09/26/2025 09/26/2024, 09/10/2024, 11/18/2023, Additional history exists DTaP,Tdap,and Td Vaccines (3 - Td or Tdap) 11/25/2026 11/25/2016, 11/06/2009 Cholesterol Screening (Lipid Panel) 01/18/2028 01/17/2023 Osteoporosis Screening (Bone Density Screening) 06/04/2031 06/03/2021 Hepatitis C Screening Completed 06/10/2016 Pneumococcal Vaccine: 50+ Years Completed 08/25/2016, 06/12/2014, 11/12/2010 Breast Cancer Screening Discontinued 07/11/19, 07/07/2020, 07/06/2018, Additional history exists Lung Cancer Screening (Low Dose CT) Discontinued 09/12/2023, 09/12/2023, 08/13/2022, Additional history exists HIB Vaccines Aged Out No longer eligi ble based on patient's age to complete this topic HPV Vaccines Aged Out No longer eligi ble based on patient's age to complete this topic Hepatitis B Vaccines Aged Out No long er eligible based on patient's age to complete this topic IPV Vaccines Aged Out No longer eligi ble based on patient's age to complete this topic MMR Vaccines Aged Out No longer eligi ble based on patient's age to complete this topic Meningococcal ACWY Vaccine Aged Out N o longer eligible based on patient's age to complete this topic Meningococcal B Vaccine Aged Out No l onger eligible based on patient's age to complete this topic RSV Immunization Patients Under 20 months Aged Out No longer eligible based on patient's age to complete this topic Varicella Vaccines Aged Out No longer eligible based on patient's age to complete this topic Zoster Vaccines Discontinued Procedures Procedure Name Priority Date/Time Associated Diagnosis Comments VITAMIN D 25 HYDROXY Routine 09/26/2024 12:18 PM EDT Encounter for long-term (current) use of medications Age-related osteoporosis without current pathological fracture RENAL FUNCTION PANEL Routine 09/26/2024 12:18 PM EDT Encounter for long-term (current) use of medications Age-related osteoporosis without current pathological fracture MAGNESIUM Routine 09/26/2024 12:18 PM EDT Encounter for long-term (current) use of medications Age-related osteoporosis without current pathological fracture MAGNESIUM Routine 09/10/2024 7:22 AM EDT Abnormal [...] (CMS/HCC V24) Unspecified protein-calorie malnutrition (CMS/HCC V24) COMPLETE BLOOD COUNT Routine 09/10/2024 7:22 AM EDT Abnormal weight loss Alcohol use, unspecified with unspecified alcohol-induced disorder (CMS/HCC V24) Unspecified protein-calorie malnutrition (CMS/HCC V24) EXTERNAL CT REPORT 09/04/2024 ECG 12-LEAD Routine 08/29/2024 3:14 PM EDT SVT (supraventricular tachycardia) (CMS/HCC V24) EXTERNAL CT REPORT 08/29/2024 CT LUNG SCREENING LOW DOSE Routine 09/12/2023 3:17 PM EDT Encounter for screening for malignant neoplasm of respiratory organs HM DEPRESSION SCREENING Routine 04/18/2023 LIPID PANEL Routine 01/17/2023 SCREENING MAMMOGRAPHY BI 2-VIEW BREAST INC CAD Routine 07/10/2021 3:59 PM EDT Encounter for screening mammogram for malignant neoplasm of breast [facility] Routine 06/03/2021 9:31 AM EST Age-related osteoporosis without current pathological fracture HEPATITIS C SCREENING Routine 06/10/2016 from Last 3 Months or Most Recently Relevant to Health Maintenance Results * (ABNORMAL) Vitamin D 25 hydroxy (09/26/2024 12:18 PM EDT) Vit D, 25-Hydroxy 86.8(H) 30.0 - 80.0 ng/mL LAB CHEMISTRY METHOD 09/26/2024 6:11 PM EDT [facility] Blood Venous blood specimen / Unknown Venipuncture / Unknown 09/26/2024 12:18 PM EDT 09/26/2024 12:18 PM EDT Nickolas Brasher MD LAB BLOOD ORDERABLES Final Re sult [facility] [address] [place] [address], [place] [phone] * (ABNORMAL) Magnesium (09/26/2024 12:18 PM EDT) Only the most recent of2 resultswithin the time period is included. Magnesium 1.8(L) 1.9 - 2.6 mg/dL LAB CHEMISTRY METHOD 09/26/2024 5:33 PM EDT [facility] Blood Venous blood specimen / Unknown Venipuncture / Unknown 09/26/2024 12:18 PM EDT 09/26/2024 12:18 PM EDT us Nickolas Brasher MD LAB BLOOD ORDERABLES Final Re sult [facility] [address] [place] [address], * Renal function panel (09/26/2024 12:18 PM EDT) Sodium 138 133 - 145 mmol/L LAB CHEMISTRY METHOD [facility]24 [facility] Potassium 3.6 3.5 - 5.5 mmol/L LAB CHEMISTRY METHOD 09/26/2024 5:36 PM [facility] Chloride 105 96 - 110 mmol/L LAB CHEMISTRY METHOD 09/26/2024 5:36 PM [facility] CO2 28 21 - 32 mmol/L LAB CHEMISTRY METHOD 09/26/2024 5:36 PM [facility] Anion Gap 5 3 - 11 LAB CHEMISTRY METHOD 09/26/2024 5:36 PM [facility] Glucose 74 70 - 100 mg/dL LAB CHEMISTRY METHOD 09/26/2024 5:36 PM [facility] BUN 18 5 - 25 mg/dL LAB CHEMISTRY METHOD 09/26/2024 5:36 PM [facility] Creatinine 0.54 0.50 - 1.10 mg/dL LAB CHEMISTRY METHOD 09/26/2024 5:36 PM [facility] eGFR 96 >=60 mL/min/1. 73m2 LAB CHEMISTRY METHOD 09/26/2024 5:36 PM [facility] Comment:Calculation based on the Chronic Kidney Disease Epidemiology Collaboration (CKD-EPI) equation refit without adjustment for race. BUN/Creatinine Ratio 33.3 LAB CHEMISTRY METHOD 09/26/2024 5:36 PM [facility] Albumin 3.4 3.2 - 5.0 g/dL LAB CHEMISTRY METHOD 09/26/2024 5:36 PM T [facility] Calcium 9.7 8.5 - 10.5 mg/dL LAB CHEMISTRY METHOD 09/26/2024 5:36 PM EDT [facility] Phosphorus 3.4 2.5 - 4.5 mg/dL LAB CHEMISTRY METHOD 09/26/2024 5:36 PM [facility] Blood Venous blood specimen / Unknown Venipuncture / Unknown 09/26/2024 12:18 PM EDT 09/26/2024 12:18 PM EDT us Nickolas Brasher MD LAB BLOOD ORDERABLES Final Re sult [facility] [address] [place] [address], [place] [phone] * (ABNORMAL) Complete blood count (09/10/2024 7:22 AM EDT) WBC 5.2 4.8 - 10.8 K/mcL LAB HEMETOLOGY METHOD 09/10/2024 9:21 AM [facility] RBC 3.40(L) 3.80 - 4.80 M/mcL LAB HEMETOLOGY METHOD 09/10/2024 9:21 AM [facility] Hemoglobin 11.2(L) 11.5 - 16.0 g/dL LAB HEMETOLOGY METHOD 09/10/2024 9:21 AM [facility] Hematocrit 35.6 35.0 - 47.0 % LAB HEMETOLOGY METHOD 09/10/2024 9:21 AM [facility] MCV 105.0(H) 79.0 - 98.0 FL LAB HEMETOLOGY METHOD 09/10/2024 9:21 AM [facility] MCH 33.0(H) 27.0 - 32.0 pcg LAB HEMETOLOGY METHOD 09/10/2024 9:21 AM [facility] MCHC 31.5(L) 32.0 - 37.0 g/dL LAB HEMETOLOGY METHOD 09/10/2024 9:21 AM EDT [facility] RDW 13.1 11.0 - 15.0 % LAB HEMETOLOGY METHOD 09/10/2024 9:21 AM EDT [facility] Platelets 359 130 - 400 K/mcL LAB HEMETOLOGY METHOD 09/10/2024 9:21 AM EDT [facility] MPV 9.2 7.0 - 11.0 FL LAB HEMETOLOGY METHOD 09/10/2024 9:21 AM EDT [facility] NRBC 0.0 <1.0 % LAB HEMETOLOGY METHOD 09/10/2024 9:21 AM EDT [facility] NRBC Absolute 0.00 <0.10 K/mcL LAB HEMETOLOGY METHOD 09/10/2024 9:21 AM EDT [facility] Blood Venous blood specimen / Unknown Venipuncture / Unknown 09/10/2024 7:22 AM EDT 09/10/2024 8:56 AM EDT us Jeannette Samuel MD LAB BLOOD ORDERABLES Final Resu lt [facility] [address] [place] [address], * Thyroid stimulating hormone (09/10/2024 7:22 AM EDT) TSH 0.76 0.40 - 4.00 mcIU/mL LAB CHEMISTRY METHOD 09/10/2024 11:09 AM EDT [facility] Blood Venous blood specimen / Unknown Venipuncture / Unknown 09/10/2024 7:22 AM EDT 09/10/2024 8:56 AM EDT us Jeannette Samuel MD LAB BLOOD ORDERABLES Final Resu lt [facility] [address] [place] [address], * (ABNORMAL) Comprehensive metabolic panel (09/10/2024 7:22 AM EDT) Sodium 135 133 - 145 mmol/L LAB CHEMISTRY METHOD 09/10/2024 9:50 AM [facility] Potassium 4.4 3.5 - 5.5 mmol/L LAB CHEMISTRY METHOD 09/10/2024 9:50 AM [facility] Chloride 96 96 - 110 mmol/L LAB CHEMISTRY METHOD 09/10/2024 9:50 AM [facility] CO2 33(H) 21 - 32 mmol/L LAB CHEMISTRY METHOD 09/10/2024 9:50 AM [facility] Anion Gap 6 3 - 11 LAB CHEMISTRY METHOD 09/10/2024 9:50 AM [facility] Glucose 70 70 - 100 mg/dL LAB CHEMISTRY METHOD 09/10/2024 9:50 AM [facility] BUN 15 5 - 25 mg/dL LAB CHEMISTRY METHOD 09/10/2024 9:50 AM [facility] Creatinine 0.50 0.50 - 1.10 mg/dL LAB CHEMISTRY METHOD 09/10/2024 9:50 AM [facility] eGFR 97 >=60 mL/min/1. 73m2 LAB CHEMISTRY METHOD 09/10/2024 9:50 AM [facility] Comment:Calculation based on the Chronic Kidney Disease Epidemiology Collaboration (CKD-EPI) equation refit without adjustment for race. BUN/Creatinine Ratio 30.0 LAB CHEMISTRY METHOD 09/10/2024 9:50 AM [facility] Calcium 9.6 8.5 - 10.5 mg/dL LAB CHEMISTRY METHOD 09/10/2024 9:50 AM EDT [facility] AST (SGOT) 38 10 - 42 unit/L LAB CHEMISTRY METHOD 09/10/2024 9:50 AM EDT [facility] ALT (SGPT) 25 10 - 60 unit/L LAB CHEMISTRY METHOD 09/10/2024 9:50 AM EDT [facility] Alkaline Phosphatase 80 42 - 121 unit/L LAB CHEMISTRY METHOD 09/10/2024 9:50 AM EDT [facility] Total Protein 5.8(L) 6.0 - 8.0 g/dL LAB CHEMISTRY METHOD 09/10/2024 9:50 AM EDT [facility] Albumin 2.8(L) 3.2 - 5.0 g/dL LAB CHEMISTRY METHOD 09/10/2024 9:50 AM [facility] Total Bilirubin 0.3 0.0 - 1.4 mg/dL LAB CHEMISTRY METHOD 09/10/2024 9:50 AM EDT [facility] Blood Venous blood specimen / Unknown Venipuncture / Unknown 09/10/2024 7:22 AM EDT 09/10/2024 8:56 AM EDT us Jeannette Samuel MD LAB BLOOD ORDERABLES Final Resu lt [facility] [address] [place] [address], * External CT Report (09/04/2024) Only the most recent of2 resultswithin the time period is included. Anatomical Region Laterality Modality Computed Tomogra phy us Provider [facility] CT PROCEDURES Final Result * ECG 12 lead (08/29/2024 3:14 PM EDT) Narrative Sahara Callejas MD - 08/29/2024 3:14 PM EDT Sinus tachycardia with ECTOPIC BEATS us Sahara Callejas MD ECG ORDERABLES Final Result * CT LUNG SCREENING LOW DOSE (09/12/2023 3:17 PM EDT) Anatomical Region Laterality Modality Computed Tomogra phy 09/12/2023 11:3 1 AM EDT Narrative 09/12/2023 3:17 PM EDT [facility] Diagnostic Imaging Department [address] [place] [id number] Patient: ARUNСВЕТЛАНАDIVYA /Age/Sex: 1950 - 73 - F Unit#: [id number] Location/Status: [facility] Mnemonic/Ordering Site: [facility] Ordering Physician: JANY PEREZ MD CT Lung Screening Low Dose - 09/12/23 - 1137 Report Status:Signed History: 73 year-old 24 pack-year former smoker, asymptomatic, for lung cancer screening. Quit smoking 4 years ago. Known coronary artery disease. Mother had lung carcinoma. Comparison: 08/09/22 Technique: Helical volumetric imaging of the thorax was performed, using low- dose technique, without IV contrast. DLP: 118.02 mGy/cm CTDIvol: 3.22 mGy JukedeckT Iterative reconstruction technique Findings: Lungs and Airways: The trachea and central bronchial tree are patent. Diffuse bronchial wall thickening is noted and there are scattered foci of peripheral mucous plugging in both lungs. Centrilobular and paraseptal and the femur are noted. Minimal pleural-based reticular nodular opacity is seen in the lung apices, unchanged, consistent with scarring. A 4 mm juxtapleural solid, noncalcified right middle lobe nodule (image 143 series 4) is unchanged. No suspicious developing pulmonary nodule is seen. Pleura: No pleural or pericardial effusions are identified. Base of neck, mediastinum and heart: The heart remains normal in size. Severe, three-vessel coronary artery calcification is again noted and there is extensive mural calcification of the thoracic aorta. The ascending thoracic aortic diameter measures up to 3.9 cm, without significant change. Severe calcification is seen at the origin of the right subclavian artery. No developing thoracic lymphadenopathy is seen. Soft tissues: The overlying soft tissues are unremarkable. Abdomen: This study was performed without contrast and with lower than standard dose. These factors reduce the sensitivity for detection of small lesions in the upper abdomen. No significant abnormality is seen. Vertebroplasty sequelae are noted in the midthoracic spine. Chronic thoracic and upper lumbar vertebral compression fractures, without retropulsion, are unchanged from previous. Impression: No suspicious developing pulmonary nodule. No significant change. Lung RADS 2: Benign Appearance or Behavior - Continue annual screening with LDCT in 12 months. [id number] [id number] [id number] [id number] Dictating Physician: YSABEL SIN MD Electronically Signed by: YSABEL SIN MD Dic Date/Time: 09/12/23 1504 Sign date/Time: 09/12/23 1517 Procedure Note Ysabel Sin MD - 01/11/2024 [facility] Diagnostic Imaging Department [address] [place], [place] [id number] Patient: DIVYA DIAS /Age/Sex: 1950 - 73 - F Unit#: [id number] Location/Status: SPDICATLS/REG CLI Mnemonic[facility] Ordering Physician: JANY PEREZ MD CT Lung Screening Low Dose - 09/12/23 - 1137 Report Status:Signed History: 73 year-old 24 pack-year former smoker, asymptomatic, for lungcancer screening. Quit smoking 4 years ago. Known coronary artery disease. Motherhad lung carcinoma. Comparison: 08/09/22 Technique: Helical volumetric imaging of the thorax was performed, usinglow- dose technique, without IV contrast. DLP: 118.02 mGy/cm CTDIvol: 3.22 mGy [employer] VCT Iterative reconstruction technique Findings: Lungs and Airways: The trachea and central bronchial tree are patent.Diffuse bronchial wall thickening is noted and there are scattered foci ofperipheral mucous plugging in both lungs. Centrilobular and paraseptal and the femurare noted. Minimal pleural-based reticular nodular opacity is seen in thelung apices, unchanged, consistent with scarring. A 4 mm juxtapleural solid, noncalcified right middle lobe nodule ( series 4) is unchanged. No suspicious developing pulmonary nodule is seen. Pleura: No pleural or pericardial effusions are identified. Base of neck, mediastinum and heart: The heart remains normal in size.Severe, three-vessel coronary artery calcification is again noted and there isextensive mural calcification of the thoracic aorta. The ascending thoracic aortic diameter measures up to 3.9 cm, without significant change. Severecalcification is seen at the origin of the right subclavian artery. No developingthoracic lymphadenopathy is seen. Soft tissues: The overlying soft tissues are unremarkable. Abdomen: This study was performed without contrast and with lower thanstandard dose. These factors reduce the sensitivity for detection of small lesionsin the upper abdomen. No significant abnormality is seen. Vertebroplasty sequelae are noted in the midthoracic spine. Chronicthoracic and upper lumbar vertebral compression fractures, without retropulsion,are unchanged from previous. Impression: No suspicious developing pulmonary nodule. No significant change. Lung RADS 2: Benign Appearance or Behavior - Continue annual screeningwith LDCT in 12 months. 13090 G9637 G9557 [id number] Dictating Physician: YSABEL SIN MD Electronically Signed by: YSABEL SIN MD Dic Date/Time: 09/12/23 1504 Sign date/Time: 09/12/23 1517 Result [facility] Jany Perez MD IMG CT PROCEDURES Final Result * Depression Screening (04/18/2023) Depression Screening abstracted Result [facility] Historical Provider HEALTH MAINTENANCE Final Result * (ABNORMAL) Lipid panel (01/17/2023) LDL/HDL Ratio 3 0 - 4 Triglycerides 129 0 - 150 mg/dL Cholesterol 213(A) 0 - 200 mg/dL HDL 75 >=40 mg/dL LDL Cholesterol 113(A) 0 - 100 mg/dL Blood Venous blood specimen / Unknown Historical Provider LAB BLOOD ORDERABLES Maria Teresa l Result * SCREENING MAMMOGRAPHY BI 2-VIEW BREAST INC CAD (07/10/2021 3:59 PM EDT) Anatomical Region Laterality Modality Radiographic Rebeca ging 07/07/2020 2:41 PM EDT Narrative 07/10/2021 4:03 PM EDT This is a summary report. The complete report is available in the patient's medical record. If you cannot access the medical record, please contact the sending organization for a detailed fax or copy. Full field digital screening 2D and 3D mammography, reviewed with CAD and compared to previous mammograms dating back to 06/30/2017 most recent of 07/07/2020. The breasts are composed of fatty and fibroglandular tissue. No suspicious mass, architectural distortion or suspicious calcifications are identified. Benign focal asymmetry in the anterior outer right breast is stable. IMPRESSION: : No mammographic evidence of malignancy. BIRADS 2-benign 5 year breast cancer risk assessment N/A Lifetime breast cancer risk assessment N/A Breast cancer risk category Breast cancer risk not assessed Procedure Note Radha Chua MD - 03/16/2022 This is a summary report. The complete report is available in thepatient's medical record. If you cannot access the medical record, pleasecontact the sending organization for a detailed fax or copy. Full field digital screening 2D and 3D mammography, reviewed with CAD andcompared to previous mammograms dating back to 06/30/2017 most recent of07/07/2020. The breasts are composed of fatty and fibroglandular tissue.No suspicious mass, architectural distortion or suspicious calcificationsare identified. Benign focal asymmetry in the anterior outer right breast is stable. IMPRESSION: : No mammographic evidence of malignancy. BIRADS 2-benign 5 year breast cancer risk assessment N/A Lifetime breast cancer risk assessment N/A Breast cancer risk category Breast cancer risk not assessed us Gian Negrete MD IMG XR PROCEDURES Final Resul t * LACI DEXA AXIAL SKELETON (06/03/2021 9:31 AM EST) Anatomical Region Laterality Modality Mammography 06/02/2021 2:48 PM EST Narrative 06/03/2021 9:31 AM EST [facility] Diagnostic Imaging Department [address] [place] [address] Patient: DIVYA DIAS/Age/Sex: 1950 - 71 - F Unit#: [id number] Location/Status: SPDIMAM/REG CLI [facility]emonic[facility] Ordering Physician: ANTIONE SINGH MD Laci Dexa Axial Skeleton - 06/02/211523 History: Low estrogen state due to menopause. Surgical hardware in left hip. Findings: Bone densitometry is performed utilizing dual energy x-ray absorptiometry (DXA) in the [employer] unit. The lumbar spine and right proximal femur are evaluated in the AP projection. The FRAX questionaire was completed. The results indicate osteoporosis, with a lumbar spine T-score of -3.0. The detailed DEXA report will be mailed to the referring physician's office. DualFemur FRAX: 10-year Probability of Fracture: Major Osteoporotic 24.9 percent Hip 8.8 percent. IMPRESSION: Osteoporosis. [id number] Dictating Physician: YSABEL SIN MD Electronically Signed by: YSABEL SIN MD Dic Date/Time: 06/03/21929 Sign date/Time: 06/03/21930 Procedure Note Ysabel Sin MD - 03/17/2022 [facility] Diagnostic Imaging Department [address] [place] [address] Patient: DIVYA DIAS /Age/Sex: 1950 - 71 - F Unit#: [id number] Location/Status: SPDIMA/REG CLI Mnemonic[facility]ing [facility] Ordering Physician: ANTIONE SINGH MD [facility] Dexa Axial Skeleton - 06/02/211523 History: Low estrogen state due to menopause. Surgical hardware in lefthip. Findings: Bone densitometry is performed utilizing dual energy x-ray absorptiometry(DXA) in the [employer] unit. The lumbar spine and right proximal femur are evaluated in the AP projection. The FRAX questionaire was completed. The results indicate osteoporosis, with a lumbar spine T-score of -3.0.The detailed DEXA report will be mailed to the referring physician's office. DualFemur FRAX: 10-year Probability of Fracture: Major Osteoporotic 24.9 percent Hip 8.8 percent. IMPRESSION: Osteoporosis. [id number] Dictating Physician: YSABEL SIN MD Electronically Signed by: YSABEL SIN MD Dic Date/Time: 06/03/21929 Sign date/Time: 06/03/21930 Antione Singh MD IMG BI PROCEDURES Final Resu lt * Hepatitis C Screening (06/10/2016) [facility] Hepatitis C Screening abstracted Historical Provider HEALTH MAINTENANCE Final Result from Last 3 Months or Most Recently Relevant to Health Maintenance Insurance [employer] MEDICARE MEDICAID - [place] Care Teams Forestry Aid Relationship Specialty Start Date End Date Sahara Callejas MD [address] [place] [phone] PCP - General Internal Medicine 09/18/24
--- OUTSIDE RECORDS SUMMARY | 2024-11-29 15:27 | XMS_ITS | Encounter Summary ---
Author Organization [facility] Address [address] [place] [address] Care Team Providers Care Fashion Styling Intern Name Role Phone Sahara Callejas MD Primary Care Provider [phone] Reason for Visit * Reason Onset Date Comments Hypertension 11/16/2024 Hypotension 11/16/2024 Encounter Details Date Type Department Care Team (Late st Contact Info) Description 11/16/2024 Telephone Adult Medicine [address] [phone] Sahara Callejas MD [address] [place] [address] Social History Tobacco Use Types Packs/Day Years [...] as of this encounter Progress Notes * Suzette Morel MA - 11/28/2024 2:11 PM EDT Appt booked 12/25 with Keke for Bp f/u * Joan Cabrera RN - 11/20/2024 4:22 PM EDT Call to pt. Left message for pt to call triage pt needs f/u with pcp for bp f/u * Sahara Callejas MD - 11/20/2024 1:30 PM EDT Patient has had fluctuating BP in past as well, she also was switched to carvedilol due to headaches from metroprolol, she had a visit with me on 10/26/24 which she no showed, she needs an office visitfor BP follow up . If she is symptomatic with fluctuating BP then would advise urgent eval at ER * Joan Cabrera RN - 11/16/2024 1:10 PM EDT Pt has had high and low BP in past 24 hours, yesterday she was 155/33 then was 92/56 and 88/50 she took midodrine for her BP and BP was 114/63 this am she is 118/53 Pt has no chest pain or SOB, denies any recent N/V/D or fever , has not had a cough. Pt denies any headache , has no change in vision, pt has not had any weakness, or numbness, denies any dizziness, pt is oriented and speech is clear, pt has been taking all prescribed BP meds with no recent changes Advised home care following the HTN Protocol. RN reinforced telephone consultation and advice. Reviewed with the patient the signs and symptoms to watch for that would require immediate attention. Ifsymptoms change, worsen or increase in intensity, to call back immediately She will take midodrine as ordered Message to dr lilia FERGUSON * Diamond Johansen - 11/16/2024 12:23 PM EDT Patient call requires triage: Symptoms patient is presenting: BP fluctuates high and low How long has patient had these symptoms?: last night For ALL patients calling to schedule any [...] traveled recently to another state outside of [place], [place], [place], [place], [place], [place], [place]? no o If yes, did you quarantine [...] of accident/Injury: No If yes, gather 3rd libertarian insurance information Third Constitution Party Information: not applicable PCP: Sahara Callejas MD Payor: [employer] MEDICARE / Plan: [facility] MEDICARE ADVANTAGE / Product Type: *No Product type* / documented in this encounter Plan of Treatment Upcoming Encounters Date Type Department Care Team (Late st Contact Info) Description 12/25/2024 3:00 PM EDT Office Visit Adult Medicine [address] [phone] Ne Velásquez PA [address] [place] [address] documented as of this encounter Visit Diagnoses Not on filedocumented in this encounter Care Teams Fashion Styling Intern Relationship Specialty Start Date End Date Sahara Callejas MD [address] [place] [address] PCP - General Internal Medicine 09/18/24 documented as of this encounter
--- OUTSIDE RECORDS SUMMARY | 2024-11-29 15:27 | XMS_ITS | Encounter Summary ---
Author Organization [facility] Address [address] [place] [address] Care Team Providers Care Milled Rubber Tender Name Role Phone Sahara Callejas MD Primary Care Provider [phone] Reason for Visit * Reason Onset Date Comments Medication Problem 10/01/2024 Encounter Details Date Type Department Care Team (Late st Contact Info) Description 10/01/2024 Nurse Triage Adult Medicine [address] [phone] Cassandra Rico MA Social History Tobacco Use Types Packs/Day Years [...] on file documented as of this encounter Ordered Prescriptions Prescription Sig Dispense Quantity Refills Last Filled Start Date End Date carvediloL (COREG) 3.125 mg tablet Take 1 tablet (3.125 mg total) by mouth 2 (two) times a day with meals. Hold for BP <110 180 tablet 1 10/03/2024 documented in this encounter Progress Notes * Nilsa Calderon RN - 10/03/2024 5:52 PM EDT Called pt. And informed of message from her PCP Switch to carvedilol new prescription sent to pharmacy with holding parameters, continue monitor symptoms if has headache again after changing medications would advise evaluation in the office pt. agrees * Sahara Callejas MD - 10/03/2024 5:19 PM EDT Switch to carvedilol new prescription sent to pharmacy with holding parameters, continue monitor symptoms if has headache again after changing medications would advise evaluation in the office * Nilsa Calderon RN - 10/03/2024 12:37 PM EDT Spoke to pt. She states her last day of medication was the 09/29 7 101/64 7/ 108/49 7/8 148/78 Today 114/64 * Sahara Callejas MD - 10/03/2024 12:11 PM EDT What is patient's blood pressure been since stopping the medication? Can they please provide with ablood pressure log hide daughter usually checks her blood pressure for her * Nilsa Calderon RN - 10/03/2024 10:47 AM EDT No dizziness or lightheadedness, no weakness , no cp and no additional sob. Pt. Has stopped metoprolol x 3 days which was started due to her recent SC . Will send to PCP for review Answer Assessment - Initial Assessment Questions 1. LOCATION: Where does it hurt? Behind eyes to back of head 2. ONSET: When did the headache start? (e.g., minutes, hours, days) Started last week comes goes but persistent for Tuesday and Tuesday Stopped metoprolol which was a new medication and headache resolved 3. PATTERN: Does the pain come and go, or has it been constant since it started? Started when pt. Started new medication 4. SEVERITY: How bad is the pain? and What does it keep you from doing? (e.g., Scale 1-10; mild, moderate, or severe) 8/10 when she had headache 5. RECURRENT SYMPTOM: Have you ever had headaches before? If Yes, ask: When was the last time? and What happened that time? Started when she took medication and stopped when she stopped taking it 3 days ago 6. CAUSE: What do you think is causing the headache? medication 7. MIGRAINE: Have you been diagnosed with migraine headaches? If Yes, ask: Is this headache similar? Did have years ago but sts totally different 8. HEAD INJURY: Has there been any recent injury to your head? No head injury 9. OTHER SYMPTOMS: Do you have any other symptoms? (e.g., fever, stiff neck, eye pain, sore throat, cold symptoms) No fever, no chills, no additional sob, no cough no chest pain 10. : Is there any chance you are ? When was your last menstrual period? N/A Protocols used: [id number] * Ketty García - 10/02/2024 2:50 PM EDT Patient is calling back and is asking for advise, please see the message regarding her medication. No headache since she stop the medication. * Cassandra Rico MA - 10/01/2024 1:41 PM EDT Medication Problem: What is the name of the medication patient is having a problem with?: Metoprolol tartrate 25 mg What is the problem?: Patient is getting a massive headache Who is calling about the problem? : The patient Is this a NEW medication?: no How long has the patient been taking this medication? A while Who prescribed this medication for the patient? pcp Who is patients PCP?: Sahara Callejas MD Payor: [facility] MEDICARE / Plan: [facility] MEDICARE ADVANTAGE / Product Type: *No Product type* / documented in this encounter Plan of Treatment Upcoming Encounters Date Type Department Care Team (Late st Contact Info) Description 12/25/2024 3:00 PM EDT Office Visit Adult Medicine [address] [phone] Ne Velásquez PA [address] [place], [place] documented as of this encounter Visit Diagnoses Not on filedocumented in this encounter Discontinued Medications Medication Sig Discontinue Reason Start Date End Da te metoprolol tartrate (LOPRESSOR) 25 mg tablet Take 0.5 tablets (12.5 mg total) by mouth 2 (two) times a day. Hold for BP <100 Side effects 09/26/2024 10/03/2024 documented as of this encounter Care Teams Milled Rubber Tender Relationship Specialty Start Date End Date Sahara Callejas MD [address] [place] [address] PCP - General Internal Medicine 09/18/24 documented as of this encounter
[2024-11-29] MEDS: Albuterol Sulfate 2.5 MG, Albuterol/Iprat 2.5/0.5MG 3 ML 3 ML INHALE (17:19)
[2024-11-29 17:20] VITALS: PULSE 84; RESP 24; O2SAT 93
[2024-11-29 18:23] VITALS: BP 146/50; PULSE 95; RESP 20; O2SAT 97
[2024-11-29 18:25] VITALS: BP 146/50; PULSE 95; RESP 20; TEMP -17.7; TEMP 0; O2SAT 97
== END 2024-11-29 18:30 | disposition home or self-care (01) ==
PROVIDERS: Registered Nurse Emergency; Emergency Provider Emergency Medicine; PCP Internal Medicine
DX: J44.1 Chronic obstructive pulmonary disease with (acute) exacerbation (principal); R06.02 Shortness of breath; I25.10 Atherosclerotic heart disease of native coronary artery without angina pectoris; R05.9 Cough, unspecified; R00.2 Palpitations; F17.210 Nicotine dependence, cigarettes, uncomplicated; Z79.899 Other long term (current) drug therapy; Z11.52 Encounter for screening for COVID-19; Z03.818 Encounter for observation for suspected exposure to other biological agents ruled out
CPT/HCPCS: 20610; 36415; 71046; 80053; 82803; 83880; 84484; 85025; 85610; 87502; 87635; 93005; 94640; 99284; 99285

== ENCOUNTER → 2024-11-29 10:35 | Outpatient (BNV) | payer OTHER, SELFPAY | PROVIDERS: PCP Internal Medicine; Visit Provider Internal Medicine Cardiovascular Disease | DX: I45.10 Unspecified right bundle-branch block (principal) | CPT/HCPCS: 93010 ==

== ENCOUNTER → 2024-11-29 10:36 | Outpatient (BNV) | payer OTHER, SELFPAY | PROVIDERS: PCP Internal Medicine; Visit Provider Radiology Diagnostic Radiology | DX: R05.8 Other specified cough (principal) | CPT/HCPCS: 71046 ==

== ENCOUNTER 2025-01-04 13:56 | Outpatient (REF) | payer OTHER, SELFPAY ==
--- NOTE | ~2025-01-04 | MM_ITS ---
EXAMINATION: DXA BONE DENSITY AXIAL HISTORY: OSTEOPOROSIS; RETIREMENT CURRENT DRUG THERAPY TECHNIQUE: MarginLeft Dual energy absorptiometry (DEXA) of the lumbar spine, total right hip, and femoral neck was performed. COMPARISON: Comparison is made with the prior examination dated 07/20/2022. FINDINGS: The bone mineral density of the lumbar spine is 0.663 g/cm2, corresponding to a T-score of -4.2, and a Z-score of -2.3. This is indicative of osteoporosis. This represents a BMD change of -15.4% compared to the prior exam. This is statistically significant. The bone mineral density of the right total hip is 0.555 g/cm2, corresponding to a T-score of -3.6, and a Z-score of -1.7. This is indicative of osteoporosis. This represents a BMD change of 15.6% compared to the prior exam. This is statistically significant. The bone mineral density of the right femoral neck is 0.636 g/cm2, corresponding to a T-score of -2.9, and a Z-score of -0.8. This is indicative of osteoporosis. This represents a BMD change of 24.2% compared to the prior exam. MM/XR DEXA axial skeleton IMPRESSION: Based on bone mineral density, and according to World Health Organization (WHO) criteria, the diagnosis is consistent with osteoporosis. Statistically, 68% of repeat scans fall within 1 SD (+/- 0.010 g/cm2 for AP spine L1-L4) and 1 SD (+/- 0.012 g/cm2 for femur total) FRAX is a trademark of the [employer] Met[employer], a World Health Organization (WHO) Collaborating Center. Electronically signed by: Enrico Santoyo MD 01/04/2025 03:03 PM EDT
== END 2025-01-04 13:57 | disposition home or self-care (01) ==
LOC: HO.MAMMO 13:56
PROVIDERS: PCP Internal Medicine; Visit Provider Internal Medicine
DX: M81.0 Age-related osteoporosis without current pathological fracture (principal); Z79.899 Other long term (current) drug therapy
CPT/HCPCS: 77080

== ENCOUNTER → 2025-01-04 14:00 | Outpatient (BNV) | payer OTHER, SELFPAY | PROVIDERS: PCP Internal Medicine; Visit Provider Radiology Diagnostic Radiology | DX: E28.39 Other primary ovarian failure (principal) | CPT/HCPCS: 77080 ==